=== PATIENT | female | born 1945 | race Caucasian/White ===

== ENCOUNTER → 2016-03-19 | Outpatient (CLI) | payer MEDICARE ==
[~2016-03-19] MED LIST: ASPI-586 PO; ATEN50TA PO; CLOP75TA69 PO; FENO145T20 PO; GLIP10TA13 PO; HYDR-3812 PO; HYDR-3874 PO; LISI10TA2 PO; METF1000 PO; NITR-65 PO; OMG1KC PO; TAMS0.4C98 PO
--- NOTE | 2016-03-19 15:10 | Diagnostic Imaging Report ---
PROCEDURE: CT abdomen and pelvis without contrast. TECHNIQUE: Multiple contiguous axial images were obtained through the abdomen and pelvis without the use of intravenous contrast. INDICATION: Left flank pain. FINDINGS: Lung bases are clear. There is coronary calcific atherosclerosis. Liver appears normal. Gallbladder is present. Spleen is not enlarged. Pancreas appears normal. Adrenals are normal. There is a 6 mm calculus in the lower pole calyx of the right kidney. Kidneys otherwise unremarkable. There is no hydronephrosis. Ureters are clear. Urinary bladder is unremarkable. Patient has a large ventral hernia within a pannus in the abdomen. This contains multiple loops of small bowel and colon but no evidence of obstruction. There is a second ventral hernia superior to this containing transverse colon. Neither of the hernias appear to be causing obstruction. The small hernia more superiorly has a neck of 6.5 cm and an aneurysm sac measuring 13.5 cm. The larger hernia in the pannus contains a defect approximately 12 cm in diameter and a hernia sac measuring 26 cm in diameter. There is diverticulosis without evidence of diverticulitis. IMPRESSION: Two large ventral hernias. Right nephrolithiasis. Dictated by: Dictated on workstation # [id number]
== END ==
LOC: RAD 14:09
PROVIDERS: ATTEND Urology
DX: N20.0 Calculus of kidney (principal); K43.9 Ventral hernia without obstruction or gangrene
CPT/HCPCS: 74176

== ENCOUNTER → 2016-09-29 | Outpatient (CLI) | payer MEDICARE ==
--- NOTE | 2016-09-29 17:46 | Diagnostic Imaging Report ---
INDICATION: Nephrolithiasis. KUB at 03:55 p.m. FINDINGS: There is an 8 mm stone projecting over the mid aspect of the right kidney. No calculus is seen over the kidney. Ureters are relatively clear. Bowel gas pattern is normal. IMPRESSION: Right nephrolithiasis. There has been interval removal of left double-J ureteral stent since 07/08/2015. Dictated by: Dictated on workstation # [id number]
== END ==
LOC: RAD 15:28
PROVIDERS: ATTEND Urology
DX: N20.0 Calculus of kidney (principal)
CPT/HCPCS: 74000

== ENCOUNTER → 2017-03-30 | Outpatient (CLI) | payer MEDICARE ==
[~2017-03-30] MED LIST changes: +ACHD5005 PO; -HYDR-3812 PO
--- NOTE | 2017-03-30 15:31 | Diagnostic Imaging Report ---
INDICATION: Right kidney stone. TIME OF EXAM: 03:08 p.m. COMPARISON: Comparison is made with prior exam from 09/29/2016. FINDINGS: There is a calcific density projected just medial to the right renal shadow measuring approximately 10 mm. This appears to have migrated since the prior abdominal radiograph and it may be located in the right renal pelvis or in the region of the UPJ. No other radiopaque urinary tract calculi are seen. IMPRESSION: Right abdominal calcification, likely in the region of the right renal pelvis/UPJ. Dictated by: Dictated on workstation # [id number]
== END ==
LOC: RAD 14:32
PROVIDERS: ATTEND Urology
DX: N20.0 Calculus of kidney (principal)
CPT/HCPCS: 74018

== ENCOUNTER 2017-04-07 13:00 | Outpatient (CLI) | payer MEDICARE ==
[~2017-04-07] VITALS: Ht 157.5 cm; Wt 94.3 kg
[~2017-04-07 13:00] MED LIST changes: +HYDR-3870 PO; -HYDR-3874 PO
[2017-04-07] MEDS ORDERED: ESOM20CA58 PO (13:14)
[2017-04-07] MEDS ORDERED: AMLO5TAB2 PO (13:14)
[2017-04-07] MEDS ORDERED: CARV6.252 PO (13:14)
[2017-04-07] MEDS ORDERED: RANO10003 PO (13:14)
[2017-04-07] MEDS ORDERED: DOCU-143 PO (13:14)
[2017-04-07] MEDS ORDERED: MULT1TAB69 PO (13:28)
[2017-04-07] MEDS ORDERED: CALC-823 PO (13:28)
== END 2017-04-07 13:29 ==
LOC: PREOP 13:00
PROVIDERS: ATTEND Urology
DX: Z01.818 Encounter for other preprocedural examination (principal); N20.0 Calculus of kidney

== ENCOUNTER 2017-04-13 06:01 | Day surgery (SDC) | payer MEDICARE ==
[~2017-04-13] VITALS: Ht 157.5 cm; Wt 94.3 kg
[~2017-04-13 06:01] MED LIST changes: +AMLO5TAB2 PO; +CALC-823 PO; +CARV6.252 PO; +DOCU-143 PO; +ESOM20CA58 PO; +MULT1TAB69 PO; +RANO10003 PO
--- OUTSIDE RECORDS SUMMARY | 2017-04-13 06:03 | XMS REPORT | Clinical Summary ---
Author Author [facility] Organization [facility] Address Unknown Phone Unavailable Care Team Providers Care Skidder Operator Name Role Phone PCP Unavailable Source Comments Some departments are not documenting in the electronic medical record. If you do not see the information that you expected, contact Release of Information in the Health Information Management department at [phone] for further assistance in locating additional records.[facility] Allergies Not on File Current Medications Not on file Active Problems Not on file Social History Tobacco Use Types Packs/Day Years Used Date Never Assessed Sex Assigned at Date Recorded Not on file Last Filed Vital Signs Not on file Plan of Treatment Health Maintenance Due Date Last Done Comments HEPATITIS C SCREENING 1947 PHYSICAL (COMPREHENSIVE) 1954 EXAM PERTUSSIS VACCINE 1958 TETANUS VACCINE 1964 BREAST CANCER SCREENING 1987 COLORECTAL CANCER 1997 SCREENING SHINGLES VACCINE 2007 OSTEOPOROSIS SCREENING 2012 PREVNAR/PNEUMOVAX (#1) 2012 INFLUENZA VACCINE 09/14/2016 Results Not on filefrom Last 3 Months
--- OUTSIDE RECORDS SUMMARY | 2017-04-13 06:04 | XMS REPORT | Continuity of Care Document ---
Author Author [facility] Organization [facility] Address Unknown Phone Unavailable Allergies Active Description Code Type Severity Reaction Onset Reported/Identified Relationship to Patient Clinical Status Yes atorvastatin [id number] Drug Allergy Unknown muscle pain 06/12/2015 Yes diphenhydramine [id number] Drug Allergy Unknown N/A 06/12/2015 Yes glyburide [id number] Drug Allergy Unknown RASH 06/12/2015 Yes levofloxacin [id number] Drug Allergy Unknown RASH 06/12/2015 Yes rosuvastatin [id number] Drug Allergy Unknown muscle pain 06/12/2015 Yes Sulfa (Sulfonamide Antibiotics) [id number] Drug Allergy Unknown makes face red 06/12/2015 Medications There is no data. Problems Date Dx Coded Attending Type Code Diagnosis Diagnosed By 06/12/2015 GLADYS MARTÍNEZ MD Ot N20.1 CALCULUS OF URETER 06/12/2015 GLADYS MARTÍNEZ MD Ot Z01.818 ENCOUNTER FOR OTHER PREPROCEDURAL EXAMIN 06/12/2015 GLADYS MARTÍNEZ MD Ot N20.1 CALCULUS OF URETER 06/12/2015 GLADYS MARTÍNEZ MD Ot Z01.818 ENCOUNTER FOR OTHER PREPROCEDURAL EXAMIN 06/12/2015 GLADYS MARTÍNEZ MD Ot N20.1 CALCULUS OF URETER 06/12/2015 GLADYS MARTÍNEZ MD Ot Z01.818 ENCOUNTER FOR OTHER PREPROCEDURAL EXAMIN 06/12/2015 GLADYS MARTÍNEZ MD Ot N20.1 CALCULUS OF URETER 06/12/2015 GLADYS MARTÍNEZ MD Ot Z01.818 ENCOUNTER FOR OTHER PREPROCEDURAL EXAMIN 06/16/2015 GLADYS MARTÍNEZ MD Ot N20.0 CALCULUS OF KIDNEY 06/16/2015 GLADYS MARTÍNEZ MD Ot N20.1 CALCULUS OF URETER 06/16/2015 GLADYS MARTÍNEZ MD Ot N30.90 CYSTITIS, UNSPECIFIED WITHOUT HEMATURIA 06/16/2015 GLADYS MARTÍNEZ MD Ot Z11.2 ENCOUNTER FOR SCREENING FOR OTHER BACTER 06/17/2015 GLADYS MARTÍNEZ MD Ot N20.0 CALCULUS OF KIDNEY 06/17/2015 GLADYS MARTÍNEZ MD, Ot N20.1 CALCULUS OF URETER 06/17/2015 GLADYS MARTÍNEZ MD Ot N30.90 CYSTITIS, UNSPECIFIED WITHOUT HEMATURIA 06/17/2015 GLADYS MARTÍNEZ MD Ot Z11.2 ENCOUNTER FOR SCREENING FOR OTHER BACTER 06/18/2015 GLADYS MARTÍNEZ MD Ot N20.1 CALCULUS OF URETER 06/18/2015 GLADYS MARTÍNEZ MD Ot Z01.818 ENCOUNTER FOR OTHER PREPROCEDURAL EXAMIN 06/20/2015 GLADYS MARTÍNEZ MD Ot N20.9 URINARY CALCULUS, UNSPECIFIED 06/20/2015 GLADYS MARTÍNEZ MD Ot N20.9 URINARY CALCULUS, UNSPECIFIED 06/20/2015 GLADYS MARTÍNEZ MD Ot N20.9 URINARY CALCULUS, UNSPECIFIED 06/24/2015 GLADYS MARTÍNEZ MD Ot N20.1 CALCULUS OF URETER 06/24/2015 GLADYS MARTÍNEZ MD Ot Z79.899 OTHER HALFWAY (CURRENT) DRUG THERAPY 06/25/2015 GLADYS MARTÍNEZ MD Ot N20.1 CALCULUS OF URETER 06/25/2015 GLADYS MARTÍNEZ MD Ot Z98.89 OTHER SPECIFIED POSTPROCEDURAL STATES 06/25/2015 GLADYS MARTÍNEZ MD Ot N20.1 CALCULUS OF URETER 06/25/2015 GLADYS MARTÍNEZ MD Ot Z79.899 OTHER HALFWAY (CURRENT) DRUG THERAPY 07/02/2015 GLADYS MARTÍNEZ MD Ot N20.9 URINARY CALCULUS, UNSPECIFIED 07/08/2015 GLADYS MARTÍNEZ MD Ot N20.1 CALCULUS OF URETER 07/08/2015 GLADYS MARTÍNEZ MD Ot Z09 ENCNTR FOR F/U EXAM AFT TRTMT FOR COND O 07/23/2015 GLADYS MARTÍNEZ MD, Ot N20.1 CALCULUS OF URETER 07/23/2015 GLADYS MARTÍNEZ MD Ot Z98.89 OTHER SPECIFIED POSTPROCEDURAL STATES 07/24/2015 MAURICIO CASTRO, GLADYS Mcfarland Ot N20.9 URINARY CALCULUS, UNSPECIFIED 07/31/2015 MAURICIO CASTRO, GLADYS Mcfarland Ot N20.1 CALCULUS OF URETER 07/31/2015 MAURICIO CASTRO, GLADYS Mcfarland Ot Z09 ENCNTR FOR F/U EXAM AFT TRTMT FOR COND O 08/06/2015 MAURICIO CASTRO, GLADYS Mcfarland Ot N20.1 CALCULUS OF URETER 08/06/2015 MAURICIO CASTRO, GLADYS Mcfarland Ot Z98.89 OTHER SPECIFIED POSTPROCEDURAL STATES 08/14/2015 MAURICIO CASTRO, GLADYS Mcfarland Ot N20.1 CALCULUS OF URETER 08/14/2015 MAURICIO CASTRO, GLADYS Mcfarland Ot Z09 ENCNTR FOR F/U EXAM AFT TRTMT FOR COND O 03/19/2016 GLADYS MARTÍNEZ MD Ot N20.9 URINARY CALCULUS, UNSPECIFIED 03/19/2016 MAURICIO CASTRO, GLADYS Mcfarland Ot N20.0 CALCULUS OF KIDNEY 03/19/2016 MAURICIO CASTRO, GLADYS Mcfarland Ot N20.1 CALCULUS OF URETER 03/19/2016 MAURICIO CASTRO, GLADYS Mcfarland Ot Z01.818 ENCOUNTER FOR OTHER PREPROCEDURAL EXAMIN 03/19/2016 GLADYS MARTÍNEZ MD Ot N20.1 CALCULUS OF URETER 03/19/2016 MAURICIO CASTRO, GLADYS Mcfarland Ot Z98.89 OTHER SPECIFIED POSTPROCEDURAL STATES 03/19/2016 MAURICIO CASTRO, GLADYS Mcfarland Ot N20.1 CALCULUS OF URETER 03/19/2016 MAURICIO CASTRO, GLADYS Mcfarland Ot Z09 ENCNTR FOR F/U EXAM AFT TRTMT FOR COND O 03/22/2016 GLADYS MARTÍNEZ MD Ot K43.9 VENTRAL HERNIA WITHOUT OBSTRUCTION OR GA 03/22/2016 GLADYS MARTÍNEZ MD Ot N20.0 CALCULUS OF KIDNEY 03/22/2016 MAURICIO CASTRO, GLADYS Mcfarland Ot K43.9 VENTRAL HERNIA WITHOUT OBSTRUCTION OR GA 03/22/2016 GLADYS MARTÍNEZ MD Ot N20.0 CALCULUS OF KIDNEY 04/12/2016 GLADYS MARTÍNEZ MD Ot K43.9 VENTRAL HERNIA WITHOUT OBSTRUCTION OR GA 04/12/2016 MAURICIO CASTRO, GLADYS Mcfarland Ot N20.0 CALCULUS OF KIDNEY 05/03/2016 MAURICIO CASTRO, GLADYS Mcfarland Ot K43.9 VENTRAL HERNIA WITHOUT OBSTRUCTION OR GA 05/03/2016 MAURICIO CASTRO, GLADYS Mcfarland Ot N20.0 CALCULUS OF KIDNEY 09/30/2016 MAURICIO CASTRO, GLADYS Mcfarland Ot N20.0 CALCULUS OF KIDNEY 10/20/2016 MAURICIO CASTRO, GLADYS Mcfarland Ot N20.0 CALCULUS OF KIDNEY 11/08/2016 MAURICIO CASTRO, GLADYS Mcfarland Ot N20.0 CALCULUS OF KIDNEY 03/31/2017 MAURICIO CASTRO, GLADYS Mcfarland Ot N20.0 CALCULUS OF KIDNEY 04/05/2017 MAURICIO CASTRO, GLADYS Mcfarland Ot N20.0 CALCULUS OF KIDNEY 04/07/2017 MAURICIO CASTRO, GLADYS Mcfarland Ot N20.0 CALCULUS OF KIDNEY 04/07/2017 MAURICIO CASTRO, GLADYS Mcfarland Ot Z01.818 ENCOUNTER FOR OTHER PREPROCEDURAL EXAMIN Procedures There is no data. Results There is no data. Encounters ACCT No. Visit Date/Time Discharge Status Pt. Type Provider Facility Loc./Unit Complaint [id number] 04/07/2017 13:00:00 04/07/2017 13:29:00 DIS Outpatient GLADYS MARTÍNEZ MD [facility] PREOP RIGHT RENAL STONE [id number] 03/30/2017 14:32:00 03/30/2017 23:59:59 CLS Outpatient GLADYS MARTÍNEZ MD [facility] RAD RT RENAL STONES [id number] 09/29/2016 15:28:00 09/29/2016 23:59:59 CLS Outpatient GLADYS MARTÍNEZ MD [facility] RAD RENAL STONE [id number] 03/19/2016 14:09:00 03/19/2016 23:59:59 CLS Outpatient GLADYS MARTÍNEZ MD [facility] RAD GROSS HEMATURIA [id number] 07/08/2015 14:15:00 07/08/2015 23:59:59 CLS Outpatient GLADYS MARTÍNEZ MD [facility] RAD LT URETERAL STONE [id number] 06/24/2015 09:13:00 06/24/2015 13:55:00 DIS Outpatient GLADYS MARTÍNEZ MD [facility] LEFT STONE [id number] 06/23/2015 14:35:00 06/23/2015 23:59:59 CLS Outpatient GLADYS MARTÍNEZ MD [facility] RAD STONE [id number] 06/23/2015 05:39:00 06/23/2015 23:59:59 CLS Outpatient GLADYS MARTÍNEZ MD [facility] PREOP LEFT STONE [id number] 06/16/2015 06:10:00 06/16/2015 11:20:00 DIS Outpatient GLADYS MARTÍNEZ MD [facility] LEFT STONE [id number] 06/12/2015 13:06:00 06/12/2015 16:00:00 DIS Outpatient GLADYS MARTÍNEZ MD [facility] PREOP LEFT STONE [id number] 06/11/2015 12:25:00 06/11/2015 23:59:59 CLS Outpatient GLADYS MARTÍNEZ MD [facility] RAD STONES [id number] 2017 08:00:00 PEN Preadmit GLDAYS MARTÍNEZ MD [facility] RIGHT RENAL STONE
[2017-04-13 06:30] VITALS: BP 145/70
[2017-04-13] MEDS ORDERED: LACTATED RINGERS 1,000 ML IV PRN ×2 (06:40→06:50)
[2017-04-13] MEDS ORDERED: cefTRIAXone INJECTION 1,000 MG in NS (IVPB) 50 ML IV ONE (06:45)
--- NOTE | 2017-04-13 06:45 | Diagnostic Imaging Report ---
INDICATION: Renal calculus. AP views of the pelvis are obtained with comparison made study of 03/30/2017. FINDINGS: Approximately 0.9 cm calcification now projects over the lower pole of the right kidney. Additional tiny calcifications are seen centrally in both kidneys. No definite calculus is seen along the course of the ureters. There is moderate amount of stool throughout the colon. There is protrusion or possible herniation of bowel in the right lower quadrant. IMPRESSION: Approximately 1 cm calculus which projects over the lower pole of the right kidney with smaller calculi seen centrally in the kidneys bilaterally. There does appear to be prominent right lower quadrant bowel protrusion or herniation. Dictated by: Dictated on workstation # [id number]
[2017-04-13] MEDS ORDERED: NS (IVPB) 50 ML ONE (06:47)
[2017-04-13] MEDS ORDERED: cefTRIAXone 1 GM (ROCEPHIN) VIAL ONE (06:47)
[2017-04-13] MEDS ORDERED: FAMOTIDINE 20MG/2ML IV (PEPCID) ONE (06:48)
[2017-04-13] MEDS ORDERED: ONDANSETRON 4 MG/2 ML (SDV) Z0FRAN ONE (06:59)
[2017-04-13] MEDS ORDERED: DEXAMETHASONE 10 MG/ML (DECADRON) 1 ML VIAL ONE (06:59)
[2017-04-13] MEDS ORDERED: LIDOCAINE PF 2% 5 ML (XYLOCAINE) VIAL ONE (06:59)
[2017-04-13] MEDS ORDERED: proPOfol 200 MG/20 ML (DIPRIVAN) VIAL IV ONE (06:59)
[2017-04-13] MEDS ORDERED: FAMOTIDINE 20MG/2ML IV (PEPCID) IV ONE (07:00)
[2017-04-13] MEDS ORDERED: fentaNYL INJECTION 100 MCG/2 ML AMP ONE (07:00)
[2017-04-13] MEDS ORDERED: MIDAZOLAM 2 MG/2 ML (VERSED) VIAL ONE (07:15)
--- NOTE | 2017-04-13 07:18 | Progress Note-Post Operative ---
Post-Operative Progess Note Surgeon (s)/Microsoft Developer (s) Surgeon GLADYS MARTÍNEZ MD Microsoft Developer: N/A Pre-Operative Diagnosis RT RENAL STONE Post-Operative Diagnosis SAME Procedure & Operative Findings Date of Procedure 04/13/17 Procedure Performed/Findings RT ESWL Anesthesia Type GENERAL Estimated Blood Loss Estimated blood loss (mL): N/A Specimens/Packing Specimens Removed N/A Packing: N/A GLADYS MARTÍNEZ MD Apr 13, 2017 7:18 am
--- NOTE | 2017-04-13 07:18 | Progress Note-Pre Operative ---
Pre-Operative Progress Note H&P Reviewed The H&P was reviewed, patient examined and no changes noted. Date Seen by Provider: Apr 13, 2017 Time Seen by Provider: 07:17 Date H&P Reviewed: Apr 13, 2017 Time H&P Reviewed: 07:17 Pre-Operative Diagnosis: RT RENAL STONE GLADYS MARTÍNEZ MD Apr 13, 2017 7:18 am
--- NOTE | 2017-04-13 07:21 | Discharge Inst-Urology ---
Discharge Inst-Urology Discharge Medications New, Converted, or Re-newed RX: RX on Chart Patient Instructions/Follow Up Plan Please make appointment to been seen in office Tuesday 04/25, KUB prior to it KUB on way home Post ESWL Instructions Increase oral fluids for 48 hours and then as needed. Diet and Activity as tolerated. If questions or concerns contact your physician Or seek help at emergency department. GLADYS MARTÍNEZ MD Apr 13, 2017 7:21 am
[2017-04-13] MEDS ORDERED: FUROSEMIDE 40 MG/4 ML INJ (LASIX) ONE (07:51)
[2017-04-13] MEDS ORDERED: KETOROLAC 30 MG/ML VIAL ONE (07:51)
[2017-04-13] MEDS ORDERED: SEVOFLURANE (ULTANE) 15 ML INHAL SOLN ONE (08:00)
[2017-04-13] MEDS ORDERED: ONDANSETRON 4 MG/2 ML (SDV) Z0FRAN IVP PRN (08:15)
[2017-04-13] MEDS ORDERED: fentaNYL INJECTION 100 MCG/2 ML AMP IVP PRN (08:15)
--- NOTE | 2017-04-13 08:38 | OPERATIVE REPORT ---
DATE OF SERVICE: 04/13/2017 PREOPERATIVE DIAGNOSIS: Right renal stone. POSTOPERATIVE DIAGNOSIS: Right renal stone. OPERATION PERFORMED: Right ESWL. SURGEON: Marlon Martínez MD ANESTHESIA: General. COMPLICATIONS: None. PROCEDURE: Under satisfactory general anesthesia, the patient in supine position on the ESWL table. The right renal stone was localized. Shocks were delivered at KV of five. A total of 3000 shocks seemed to have fragmented the stone, which was a good size stone pretty well. The patient received 40 mg of Lasix and 30 mg of Toradol IV at the end of the procedure. She tolerated the procedure and anesthesia well and was sent to recovery room in stable condition. PLAN: We will see the results and we will see her back at the office in a couple of weeks and she needs another one. We will go ahead and do it next time the machine is here in 2 weeks. Job ID: [id number] DocumentID: [id number] Dictated Date: 04/13/2017 07:59:35 Commercial Interior Designer Date: 04/13/2017 08:38:00 Dictated By: MARLON MARTÍNEZ MD
[2017-04-13 09:00] VITALS: BP 139/73
[2017-04-13] MEDS ORDERED: NITR-65 PO (09:12)
[2017-04-13] MEDS ORDERED: TAMS0.4C98 PO (09:12)
[2017-04-13] MEDS ORDERED: HYDR-3870 PO (09:12)
[2017-04-13 09:30] VITALS: BP 136/77
[2017-04-13 10:00] VITALS: BP 139/63
--- NOTE | 2017-04-13 10:39 | Anesthesia-General Post-Op ---
General Patient Condition Mental Status/LOC: Same as Preop Cardiovascular: Satisfactory Nausea/Vomiting: Absent Respiratory: Satisfactory Pain: Controlled Complications: Absent Post Op Complications Complications None Follow Up Care/Instructions Patient Instructions None needed. Anesthesia/Patient Condition Patient Condition Patient is doing well, no complaints, stable vital signs, no apparent adverse anesthesia problems. No complications reported per nursing. BINTA MONTERROSO CRNA Apr 13, 2017 10:39
--- NOTE | 2017-04-13 11:33 | Diagnostic Imaging Report ---
INDICATION: Right renal stone, post lithotripsy. TIME OF EXAM: 10:37 a.m. COMPARISON: Correlation is made with prior study earlier the same morning. FINDINGS: Previously noted right renal calculus appears to be more medially located on this current exam, perhaps in the region of the renal pelvis. There appears to be minimal fragmentation of the stone. There are additional tiny calcific densities in the lower pole of the right kidney as well consistent with calculi. No left-sided urinary tract calculi are seen. No definite ureteral calculi are identified. The bowel gas pattern is unremarkable. IMPRESSION: Dominant right renal calculus is more medially located on this current exam, perhaps in the right renal pelvis. Minimal fragmentation is noted from recent lithotripsy. Dictated by: Dictated on workstation # [id number]
== END 2017-04-13 10:21 | disposition home or self-care (01) ==
LOC: SDC 06:01
PROVIDERS: ATTEND Urology
DX: N20.0 Calculus of kidney (principal); Z11.2 Encounter for screening for other bacterial diseases; I25.10 Atherosclerotic heart disease of native coronary artery without angina pectoris; I12.9 Hypertensive chronic kidney disease with stage 1 through stage 4 chronic kidney disease, or unspecified chronic kidney disease; N18.3 Chronic kidney disease, stage 3 (moderate); E11.9 Type 2 diabetes mellitus without complications; K21.9 Gastro-esophageal reflux disease without esophagitis; F41.9 Anxiety disorder, unspecified; Z95.1 Presence of aortocoronary bypass graft; Z95.5 Presence of coronary angioplasty implant and graft
CPT/HCPCS: 74018; 82962; 87081

== ENCOUNTER 2017-04-20 05:29 | Outpatient (CLI) | payer MEDICARE ==
[~2017-04-20] VITALS: Ht 157.5 cm; Wt 94.3 kg
[~2017-04-20 05:29] MED LIST changes: -HYDR-3812 PO; -TAMS0.4C2 PO
[2017-04-20] MEDS ORDERED: TAMS0.4C2 PO (15:28)
[2017-04-20] MEDS ORDERED: HYDR-3812 PO (15:28)
== END 2017-04-20 15:35 ==
LOC: PREOP 05:29
PROVIDERS: ATTEND Urology
DX: Z01.818 Encounter for other preprocedural examination (principal); N20.0 Calculus of kidney

== ENCOUNTER → 2017-04-20 | Outpatient (CLI) | payer MEDICARE ==
[~2017-04-20] MED LIST changes: +HYDR-3812 PO; +TAMS0.4C2 PO
--- NOTE | 2017-04-20 14:00 | Diagnostic Imaging Report ---
INDICATION: Right renal stone status post lithotripsy. TIME OF EXAM: 2:01 PM COMPARISON: Correlation is made with prior radiograph from 04/13/2017. FINDINGS: The previously noted calculus projected medial to the right renal shadow does measure slightly smaller at 8 mm compared with 10 mm. This may be owing to fragmentation from lithotripsy. No definite calculi along the course of the right ureter are seen. There are punctate calcific densities overlying the lower pole of the right kidney, stable. Left-sided urinary tracts are unremarkable. IMPRESSION: Right-sided renal calculus measuring slightly smaller when compared to examination from 04/13/2017. Dictated by: Dictated on workstation # [id number]
== END ==
LOC: RAD 13:34
PROVIDERS: ATTEND Urology
DX: N20.0 Calculus of kidney (principal); Z98.890 Other specified postprocedural states
CPT/HCPCS: 74018

== ENCOUNTER 2017-04-26 06:30 | Day surgery (SDC) | payer MEDICARE ==
[~2017-04-26] VITALS: Ht 157.5 cm; Wt 94.3 kg
[~2017-04-26 06:30] MED LIST changes: +HYDR-3812 PO; +TAMS0.4C2 PO
--- OUTSIDE RECORDS SUMMARY | 2017-04-26 06:32 | XMS REPORT | Clinical Summary ---
Author Author [facility] Organization [facility] Address Unknown Phone Unavailable Care Team Providers Care Landing Man Name Role Phone PCP Unavailable Source Comments Some departments are not documenting in the electronic medical record. If you do not see the information that you expected, contact Release of Information in the Health Information Management department at [phone] for further assistance in locating additional records.[facility] Allergies Not on File Current Medications Not [...] SCREENING 2012 PREVNAR/PNEUMOVAX (#1) 2012 INFLUENZA VACCINE 11/14/2017 Results Not on filefrom Last 3 Months
--- OUTSIDE RECORDS SUMMARY | 2017-04-26 06:32 | XMS REPORT | Continuity of Care Document ---
Author Author [facility] Organization [facility] Address Unknown Phone Unavailable Allergies Active Description Code Type Severity Reaction Onset Reported/Identified Relationship to Patient Clinical Status Yes atorvastatin [id number] Drug Allergy Unknown muscle pain 06/12/2015 Yes diphenhydramine [id number] Drug Allergy Unknown N/A 06/12/2015 Yes glyburide [id number] Drug Allergy Unknown RASH 06/12/2015 Yes levofloxacin [id number] Drug Allergy Unknown RASH 06/12/2015 Yes rosuvastatin [id number] Drug Allergy Unknown muscle pain 06/12/2015 Yes Sulfa (Sulfonamide Antibiotics) [id number] Drug Allergy Unknown makes face red 06/12/2015 [...] ENCOUNTER FOR OTHER PREPROCEDURAL EXAMIN 06/16/2015 GLADYS MARTÍNZE MD Ot N20.0 CALCULUS OF KIDNEY 06/16/2015 [...] Z01.818 ENCOUNTER FOR OTHER PREPROCEDURAL EXAMIN 06/20/2015 GLDAYS MARTÍNEZ MD Ot N20.9 URINARY CALCULUS, UNSPECIFIED 06/20/2015 GLADYS MARTÍNEZ MD Ot N20.9 URINARY CALCULUS, UNSPECIFIED 06/20/2015 GLADYS MARTÍNEZ MD Ot N20.9 URINARY CALCULUS, UNSPECIFIED 06/24/2015 GLADYS MARTÍNEZ MD Ot N20.1 CALCULUS OF URETER 06/24/2015 GLADYS MARTÍNEZ MD Ot Z79.899 OTHER FDC (CURRENT) DRUG THERAPY 06/25/2015 GLADYS MARTÍNEZ MD Ot N20.1 CALCULUS OF URETER 06/25/2015 GLADYS MARTÍNEZ MD Ot Z98.89 OTHER SPECIFIED POSTPROCEDURAL STATES 06/25/2015 GLADYS MARTÍNEZ MD Ot N20.1 CALCULUS OF URETER 06/25/2015 GLADYS MARTÍNEZ MD Ot Z79.899 OTHER FDC (CURRENT) DRUG THERAPY 07/02/2015 GLADYS MARTÍNEZ MD [...] Mcfarland Ot N20.0 CALCULUS OF KIDNEY 04/07/2017 GLADYS MARTÍNEZ MD Ot Z01.818 ENCOUNTER FOR OTHER PREPROCEDURAL EXAMIN 2017 GLADYS MARTÍNEZ MD Ot E11.9 TYPE 2 DIABETES MELLITUS WITHOUT COMPLIC 2017 GLADYS MARTÍNEZ MD Ot F41.9 ANXIETY DISORDER, UNSPECIFIED 2017 GLADYS MARTÍNEZ MD Ot I12.9 HYPERTENSIVE CHRONIC KIDNEY DISEASE W ST 2017 GLADYS MARTÍNEZ MD Ot I25.10 ATHSCL HEART DISEASE OF [place] CORONARY 2017 GLADYS MARTÍNEZ MD Ot K21.9 GASTRO-ESOPHAGEAL REFLUX DISEASE WITHOUT 2017 GLADYS MARTÍNEZ MD Ot N18.3 CHRONIC KIDNEY DISEASE, STAGE 3 (MODERAT 2017 GLADYS MARTÍNEZ MD Ot N20.0 CALCULUS OF KIDNEY 2017 GLADYS MARTÍNEZ MD Ot Z11.2 ENCOUNTER FOR SCREENING FOR OTHER BACTER 2017 GLADYS MARTÍNEZ MD Ot Z95.1 PRESENCE OF AORTOCORONARY BYPASS GRAFT 2017 GLADYS MARTÍNEZ MD Ot Z95.5 PRESENCE OF CORONARY ANGIOPLASTY IMPLANT 04/14/2017 GLADYS MARTÍNEZ MD Ot E11.9 TYPE 2 DIABETES MELLITUS WITHOUT COMPLIC 04/14/2017 GLADYS MARTÍNEZ MD, Ot F41.9 ANXIETY DISORDER, UNSPECIFIED 04/14/2017 GLADYS MARTÍNEZ MD, Ot I12.9 HYPERTENSIVE CHRONIC KIDNEY DISEASE W ST 04/14/2017 GLADYS MARTÍNEZ MD, Ot I25.10 ATHSCL HEART DISEASE OF [place] CORONARY 04/14/2017 GLADYS MARTÍNEZ MD, Ot K21.9 GASTRO-ESOPHAGEAL REFLUX DISEASE WITHOUT 04/14/2017 GLADYS MARTÍNEZ MD, Ot N18.3 CHRONIC KIDNEY DISEASE, STAGE 3 (MODERAT 04/14/2017 GLADYS MARTÍNEZ MD, Ot N20.0 CALCULUS OF KIDNEY 04/14/2017 GLADYS MARTÍNEZ MD, Ot Z11.2 ENCOUNTER FOR SCREENING FOR OTHER BACTER 04/14/2017 GLADYS MARTÍNEZ MD, Ot Z95.1 PRESENCE OF AORTOCORONARY BYPASS GRAFT 04/14/2017 GLADYS MARTÍNEZ MD, Ot Z95.5 PRESENCE OF CORONARY ANGIOPLASTY IMPLANT 04/19/2017 GLADYS MARTÍNEZ MD Ot N20.0 CALCULUS OF KIDNEY 04/21/2017 GLADYS MARTÍNEZ MD, Ot N20.0 CALCULUS OF KIDNEY 04/21/2017 GLADYS MARTÍNEZ MD, Ot Z98.890 OTHER SPECIFIED POSTPROCEDURAL STATES 04/21/2017 GLADYS MARTÍNEZ MD, Ot N20.0 CALCULUS OF KIDNEY 04/21/2017 GLADYS MARTÍNEZ MD, Ot Z01.818 ENCOUNTER FOR OTHER PREPROCEDURAL EXAMIN Procedures There is no data. Results Test Result Range Methicillin resistant Staphylococcus aureus (MRSA) screening culture - 06:15 Methicillin resistant Staphylococcus aureus (MRSA) screening culture NEG NRG Capillary blood glucose measurement by glucometer (mass/volume) - 04/13/17 06: 35 Capillary blood glucose measurement by glucometer (mass/volume) 126 mg/dL 70-110 Encounters ACCT No. Visit Date/Time Discharge Status Pt. Type Provider Facility Loc./Unit Complaint [id number] 04/20/2017 13:34:00 04/20/2017 23:59:59 CLS Outpatient GLADYS MARTÍNEZ MD [facility] RAD RENAL STONES [id number] 04/20/2017 05:29:00 04/20/2017 15:35:00 DIS Outpatient GLADYS MARTÍNEZ MD [facility] PREOP RIGHT ESWL [id number] 2017 06:01:00 2017 10:21:00 DIS Outpatient GLADYS MARTÍNEZ MD [facility] SDC RIGHT RENAL STONE [id number] 04/07/2017 13:00:00 04/07/2017 13:29:00 DIS Outpatient GLADYS MARTÍNEZ MD [facility] PREOP RIGHT RENAL STONE [id number] 03/30/2017 14:32:00 03/30/2017 23:59:59 CLS Outpatient GLADYS MARTÍNEZ MD [facility] RAD RT RENAL STONES [id number] 09/29/2016 15:28:00 09/29/2016 23:59:59 CLS Outpatient GLADYS MARTÍNEZ MD [facility] RAD RENAL STONE [id number] 03/19/2016 14:09:00 03/19/2016 23:59:59 CLS Outpatient GLADYS MARTÍNEZ MD [facility] RAD GROSS HEMATURIA [id number] 07/08/2015 14:15:00 07/08/2015 23:59:59 CLS Outpatient GLADYS MARTÍNEZ MD [facility] RAD LT URETERAL STONE [id number] 06/24/2015 09:13:00 06/24/2015 13:55:00 DIS Outpatient GLADYS MARTÍNEZ MD [facility] SDC LEFT STONE [id number] 06/23/2015 14:35:00 06/23/2015 23:59:59 CLS Outpatient GLADYS MARTÍNEZ MD [facility] RAD STONE [id number] 06/23/2015 05:39:00 06/23/2015 23:59:59 CLS Outpatient GLADYS MARTÍNEZ MD [facility] PREOP LEFT STONE [id number] 06/16/2015 06:10:00 06/16/2015 11:20:00 DIS Outpatient GLADYS MARTÍNEZ MD [facility] LEFT STONE [id number] 06/12/2015 13:06:00 06/12/2015 16:00:00 DIS Outpatient GLADYS MARTÍNEZ MD [facility] PREOP LEFT STONE [id number] 06/11/2015 12:25:00 06/11/2015 23:59:59 CLS Outpatient GLADYS MARTÍNEZ MD [facility] RAD STONES [id number] 04/26/2017 08:00:00 PEN Preadmit GLADYS MARTÍNEZ MD [facility] RIGHT URETERAL STONE
--- NOTE | 2017-04-26 07:16 | Progress Note-Pre Operative ---
Pre-Operative Progress Note H&P Reviewed The H&P was reviewed, patient examined and no changes noted. Date Seen by Provider: Apr 26, 2017 Time Seen by Provider: 07:16 Date H&P Reviewed: Apr 26, 2017 Time H&P Reviewed: 07:16 Pre-Operative Diagnosis: RT RENAL STONE GLADYS MARTÍNEZ MD Apr 26, 2017 7:16 am
--- NOTE | 2017-04-26 07:17 | Progress Note-Post Operative ---
Post-Operative Progess Note Surgeon (s)/Compensation Director (s) Surgeon GLADYS MARTÍNEZ MD Compensation Director: N/A Pre-Operative Diagnosis RT RENAL STONE Post-Operative Diagnosis SAME Procedure & Operative Findings Date of Procedure 04/26/17 Procedure Performed/Findings RT ESWL Anesthesia Type GENERAL Estimated Blood Loss Estimated blood loss (mL): N/A Specimens/Packing Specimens Removed N/A Packing: N/A GLADYS MARTÍNEZ MD Apr 26, 2017 7:17 am
--- NOTE | 2017-04-26 07:19 | Discharge Inst-Urology ---
Discharge Inst-Urology Discharge Medications New, Converted, or Re-newed RX: RX on Chart Patient Instructions/Follow Up Plan Please make appointment to been seen in office 05/09, [place] prior to it [address] on [address] home Post ESWL instructions Increase oral fluids for 48 hours and then as needed. Diet and Activity as tolerated. If questions or concerns contact your physician Or seek help at emergency department. GLADYS MARTÍNEZ MD Apr 26, 2017 7:18 am
--- NOTE | 2017-04-26 07:23 | Diagnostic Imaging Report ---
Indication: Urinary calculi. Comparison: 04/20/2017. Findings: The 9 mm right proximal ureteral stone is in similar position. No additional urinary tract calculi are seen with certainty by radiography. Nonobstructive bowel gas pattern. Mild degenerative changes in the hips and SI joints. Impression: Stable position of proximal right ureteral 9 mm stone. Dictated by: Dictated on workstation # [id number]
[2017-04-26] MEDS ORDERED: CATHETER FLUSH 10 ML SYR IV PRN (07:30)
[2017-04-26] MEDS ORDERED: cefTRIAXone 1 GM/NS 100 ML IVPB IV ONE ×2 (07:30)
[2017-04-26] MEDS ORDERED: fentaNYL INJECTION 100 MCG/2 ML AMP ONE (07:45)
[2017-04-26] MEDS ORDERED: MIDAZOLAM 2 MG/2 ML (VERSED) VIAL ONE (07:48)
[2017-04-26] MEDS: LACTATED RINGERS 1,000 ML IV PRN ×2 (07:55→08:38)
[2017-04-26] MEDS ORDERED: cefTRIAXone INJECTION 1,000 MG in NS (IVPB) 100 ML IV ONE (08:00)
[2017-04-26 08:18] VITALS: BP 139/70
[2017-04-26] MEDS ORDERED: SEVOFLURANE (ULTANE) 15 ML INHAL SOLN ONE (08:58)
[2017-04-26] MEDS ORDERED: KETOROLAC 30 MG/ML VIAL ONE (08:58)
[2017-04-26] MEDS ORDERED: proPOfol 200 MG/20 ML (DIPRIVAN) VIAL IV ONE (08:58)
[2017-04-26] MEDS ORDERED: FUROSEMIDE 40 MG/4 ML INJ (LASIX) ONE (08:58)
[2017-04-26] MEDS ORDERED: LIDOCAINE PF 2% 5 ML (XYLOCAINE) VIAL ONE (08:58)
[2017-04-26] MEDS ORDERED: fentaNYL INJECTION 100 MCG/2 ML AMP IVP PRN (09:00)
[2017-04-26] MEDS ORDERED: ONDANSETRON 4 MG/2 ML (SDV) Z0FRAN IVP PRN (09:00)
[2017-04-26 09:30] VITALS: BP 146/65
[2017-04-26] MEDS ORDERED: TAMS0.4C98 PO (09:59)
[2017-04-26] MEDS ORDERED: NITR-65 PO (09:59)
[2017-04-26] MEDS ORDERED: HYDR-3875 PO (09:59)
[2017-04-26 10:00] VITALS: BP 136/65
--- NOTE | 2017-04-26 10:11 | OPERATIVE REPORT ---
DATE OF SERVICE: 04/26/2017 PREOPERATIVE DIAGNOSIS: Right renal proximal ureteral stone. POSTOPERATIVE DIAGNOSIS: Right renal proximal ureteral stone. OPERATION PERFORMED: Right ESWL. SURGEON: Marlon Martínez MD. ANESTHESIA: General. COMPLICATIONS: None. PROCEDURE: Under satisfactory general anesthesia, the patient in the supine position on the ESWL table, the right renal -- proximal ureter stone was localized. Shocks were delivered to the L5. A total of 3000 shocks needed to have fragmented the stone pretty nicely, which has decreased significant in size burden. The patient received 40 mg of Lasix and 30 mg of Toradol IV at the end of the procedure. She tolerated the procedure and anesthesia well and was sent to recovery room in stable condition. 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
[2017-04-26 10:30] VITALS: BP 133/67
[2017-04-26 10:45] VITALS: BP 133/67
--- NOTE | 2017-04-26 13:27 | Anesthesia-General Post-Op ---
General Patient Condition Mental Status/LOC: Same as Preop Cardiovascular: Satisfactory Nausea/Vomiting: Absent Respiratory: Satisfactory Pain: Controlled Complications: Absent Post Op Complications Complications None Follow Up Care/Instructions Patient Instructions None needed. Anesthesia/Patient Condition Patient Condition Patient was seen prior to discharge and was doing well, no complaints, stable vital signs, no apparent adverse anesthesia problems. DANIEL HEWITT DO Apr 26, 2017 13:27
--- NOTE | 2017-04-26 18:51 | Diagnostic Imaging Report ---
EXAMINATION: Abdomen at 10:36 a.m. INDICATION: Post ESWL. FINDINGS: The exam performed earlier today noted a 9.4 mm calcification overlying the proximal right ureter. Reportedly, in the interval since the prior exam, the patient has undergone ESWL. The previously noted calcification has been fragmented, and a portion of the calcification now overlies the right renal pelvis. This calcification also measures approximately 9 mm but does seem smaller than noted on the prior study. The small suspected phlebolith low in the pelvis on the right seen previously is not as well visualized. The small surgical coil in this area is again evident and no different. The remainder of the abdomen and pelvis is stable when compared to the prior exam. IMPRESSION: The calcification overlying the right ureter seen previously has been fragmented, and the main portion of the calcification now overlies the right renal pelvis. A followup exam would be recommended for continued evaluation. Dictated by: Dictated on workstation # [id number]
== END 2017-04-26 10:45 | disposition home or self-care (01) ==
LOC: SDC 06:30 → SURG 09:50 → SDC 10:45
PROVIDERS: ATTEND Urology
DX: N20.2 Calculus of kidney with calculus of ureter (principal); E11.22 Type 2 diabetes mellitus with diabetic chronic kidney disease; I12.9 Hypertensive chronic kidney disease with stage 1 through stage 4 chronic kidney disease, or unspecified chronic kidney disease; N18.3 Chronic kidney disease, stage 3 (moderate); I25.10 Atherosclerotic heart disease of native coronary artery without angina pectoris; F41.9 Anxiety disorder, unspecified; K21.9 Gastro-esophageal reflux disease without esophagitis; Z79.84 Long term (current) use of oral hypoglycemic drugs; Z79.899 Other long term (current) drug therapy; Z95.1 Presence of aortocoronary bypass graft
CPT/HCPCS: 74018; 82962; 87081

== ENCOUNTER → 2017-05-09 | Outpatient (CLI) | payer MEDICARE ==
[~2017-05-09] MED LIST changes: +HYDR-3875 PO
--- NOTE | 2017-05-09 17:53 | Diagnostic Imaging Report ---
INDICATION: Right renal stone, status post lithotripsy. TIME OF EXAM: 2:53 p.m. COMPARISON: Correlation is made with prior study from 04/26/2017. FINDINGS: Multiple calcific densities overlie the right renal shadow consistent with renal calculi. There may be some fragmentation of the more dominant calculus in the mid right kidney medially located. No definite calculi along the course of the ureters are seen. The bowel gas pattern is unremarkable. IMPRESSION: Right renal calculi, status post lithotripsy. Dictated by: Dictated on workstation # [id number]
== END ==
LOC: RAD 14:26
PROVIDERS: ATTEND Urology
DX: N20.0 Calculus of kidney (principal); Z98.890 Other specified postprocedural states
CPT/HCPCS: 74018

== ENCOUNTER → 2018-08-01 | Outpatient (CLI) | payer MEDICARE ==
[~2018-08-01] MED LIST changes: -AMLO5TAB2 PO; +AMLO5TAB9 PO; -FENO145T20 PO; +FENO145T37 PO; +METF-399 PO; -METF1000 PO
--- NOTE | 2018-08-01 13:31 | Diagnostic Imaging Report ---
PROCEDURE: US Renal Bilateral. TECHNIQUE: Multiple real-time grayscale images were obtained over the kidneys in various projections bilaterally. INDICATION: Kidney stones and urinary tract infections. FINDINGS: Right kidney measures 10.6 x 4.1 x 6.3 cm, and the left kidney measures 10.6 x 4.9 x 4.6 cm. Cortical thickness and echogenicity appear normal. No calculi are seen. No definite hydronephrosis is identified, although the right renal pelvis is slightly dilated. IMPRESSION: Essentially unremarkable renal ultrasound apart from slight dilatation of the right renal pelvis. No calculi are detected. Dictated by: Dictated on workstation # [id number]
--- NOTE | 2018-08-01 13:41 | Diagnostic Imaging Report ---
EXAMINATION: Supine abdomen at 1:16 p.m. INDICATION: Nephrolithiasis. FINDINGS: The prior exam of 08/09/2017 noted several calcifications overlying the right renal contour. On this study, those calcifications do appear to have changed. Specifically, the calcific densities overlying the superior pole of the right kidney do seem somewhat larger and more numerous than on the prior exam. Conversely, there is only a single calcification now overlying the inferior pole of the right kidney. There is still no evidence for nephrolithiasis on the left. The calcifications low in the pelvis seen previously are stable. There is gas in both the large and small bowel in a nonspecific fashion. There is no evidence for a bowel obstruction. There does appear to be a fair amount of fecal material throughout the colon. There is no mass, organomegaly, or pathological calcification evident. The osseous structures are intact. Surgical coils are again seen overlying each side of the pelvis. IMPRESSION: 1. The calcific densities overlying the superior pole of the right kidney seen previously have increased in number and size. Conversely, there is now only a single calcification overlying the inferior pole of the right kidney. 2. The overall appearance of the abdomen has not changed significantly otherwise. There is no acute abnormality noted. Dictated by: Dictated on workstation # [id number]
== END ==
LOC: RAD FS 12:52
PROVIDERS: ATTEND Urology
DX: N20.0 Calculus of kidney (principal); N39.0 Urinary tract infection, site not specified
CPT/HCPCS: 74018; 76770

== ENCOUNTER 2019-08-12 16:30 | Inpatient (IN) | payer MEDICARE ==
[~2019-08-12] VITALS: Ht 157.4 cm; Wt 91.0 kg
[~2019-08-12 16:30] MED LIST changes: +FENO145T26 PO; -FENO145T37 PO; -HYDR-3812 PO; +MULT-567 PO; -MULT1TAB69 PO; -TAMS0.4C98 PO; +TMSL.4C PO
--- NOTE | 2019-08-12 16:32 | ED General ---
General Stated Complaint: ABD PAIN;VOMITING Source of Information: Patient History of Present Illness Date Seen by Provider: Aug 12, 2019 Time Seen by Provider: 16:31 Initial Comments Patient is a 74-year-old female who comes to the emergency department today complaining of abdominal pain. She has been having diffuse abdominal pain both in the right upper and left side of her abdomen over the last week. Pain is been intermittent. She also has complained of some dysuria and urgency of urine and frequency. She saw her primary care physician I couple days earlier and was started on amoxicillin for presumed UTI. She comes to the ER today because this medication did not help her feel improved. She has had some intermittent nausea and vomiting. She estimates she has vomited twice today prior to arrival and currently does complain of some nausea. No chest pain or shortness of breath. Th e patient does have known history of kidney stones but she feels this pain is different compared to prior kidney stone related symptoms. Allergies and Home Medications Allergies Coded Allergies: Sulfa (Sulfonamide Antibiotics) (Verified Allergy, Unknown, makes face red, 06/12/15) atorvastatin (Verified Allergy, Unknown, muscle pain, 06/12/15) diphenhydramine (Verified Allergy, Unknown, 06/12/15) glyburide (Verified Allergy, Unknown, RASH, 06/12/15) levofloxacin (Verified Allergy, Unknown, RASH, 06/12/15) rosuvastatin (Verified Allergy, Unknown, muscle pain, 06/12/15) Home Medications Amlodipine Besylate 5 Mg Tablet, 5 MG PO DAILY, (Reported) Calcium Carbonate 500 Mg Tablet, 500 MG PO BID, (Reported) Carvedilol 6.25 Mg Tablet, 6.25 MG PO BID, (Reported) Docusate Sodium 100 Mg Capsule, 100 MG PO BID, (Reported) Esomeprazole Magnesium 20 Mg Capsule.dr, 20 MG PO BID, (Reported) Fenofibrate Nanocrystallized 145 Mg Tablet, 145 MG PO DAILY, (Reported) Glipizide 10 Mg Tablet, 5 MG PO HS, (Reported) TAKE 1/2 OF 10MG TAB Hydrocodone Bit/Acetaminophen 1 Each Tablet, 1-2 TAB PO Q4H PRN for PAIN-MILD TO MODERATE, (Reported) Hydrocodone/Acetaminophen 1 Each Tablet, 1-2 TAB PO Q4H PRN for PAIN Prescribed by: LISA ANDREA on 04/26/17958 Lisinopril 10 Mg Tablet, 10 MG PO DAILY, (Reported) Metformin HCl 1,000 Mg Tablet, 1,000 MG PO BID, (Reported) Multivitamin 1 Each Tablet, 1 EACH PO DAILY, (Reported) Nitrofurantoin Monohyd/M-Cryst 100 Mg Capsule, 1 CAP PO BID Prescribed by: LISA ANDREA on 04/26/17958 [place] 3 Polyunsat Fatty Acids 1,000 Mg Cap, 1,000 MG PO DAILY, (Reported) Ranolazine 1,000 Mg Tab.er.12h, 1,000 MG PO BID, (Reported) Tamsulosin HCl 0.4 Mg Cap.er.24h, 0.4 MG PO DAILY, (Reported) Tamsulosin HCl 0.4 Mg Cap, 1 CAP PO DAILY Prescribed by: LISA ANDREA on 04/26/17958 Patient Home Medication List Home Medication List Reviewed: Yes Review of Systems Review of Systems Constitutional: no symptoms reported EENTM: no symptoms reported Respiratory: no symptoms reported Cardiovascular: no symptoms reported Gastrointestinal: see HPI Genitourinary: see HPI Musculoskeletal: no symptoms reported Skin: no symptoms reported All Other Systems Reviewed Negative Unless Noted: Yes Physical Exam Vital Signs Vital Signs - First Documented 08/12/19 08/12/19 16:39 18:49 Temp 36.8 Pulse 102 Resp 18 B/P (MAP) 136/62 (86) Pulse Ox 95 O2 Delivery Room Air Capillary Refill : Height, Weight, BMI Height: '" Weight: lbs. oz. kg; BMI Method: General Appearance: No Apparent Distress, WD/WN, Obese HEENT: Moist Mucous Membranes Neck: Full Range of Motion Respiratory: Lungs Clear Cardiovascular: Regular Rate, Rhythm, No Edema Gastrointestinal: Normal Bowel Sounds, Soft, Hernia, Other (diffusely tender but no guarding or rebound. large abdominal wall hernia that is soft and non-tender) Extremity: Normal Capillary Refill Neurologic/Psychiatric: Alert, Oriented x3 Progress/Results/Core Measures Suspected Sepsis SIRS Temperature: Pulse: Respiratory Rate: Laboratory Tests 08/12/19 16:45: White Blood Count 18.7H Blood Pressure / Mean: Laboratory Tests 08/12/19 16:45: Creatinine 1.97H, Platelet Count 294, Total Bilirubin 0.5 Results/Orders Lab Results Laboratory Tests Test 6/28/20 16:41 08/12/19 16:45 08/12/19 17:49 Range/Units Urine Color YELLOW YELLOW Urine Clarity CLOUDY TURBID Urine pH 5.5 5.5 5-9 Urine Specific [place] 1.025 H >=1.030 1.016-1.022 Urine Protein 1+ H 1+ H NEGATIVE Urine Glucose (UA) NEGATIVE NEGATIVE NEGATIVE Urine Ketones NEGATIVE TRACE H NEGATIVE Urine Nitrite NEGATIVE NEGATIVE NEGATIVE Urine Bilirubin 1+ H 1+ H NEGATIVE Urine Urobilinogen 0.2 0.2 < = 1.0 MG/DL Urine Leukocyte Esterase 2+ H TRACE H NEGATIVE Urine RBC (Auto) NEGATIVE NEGATIVE NEGATIVE Urine RBC NONE NONE /HPF Urine WBC 25-50 H 0-2 /HPF Urine Squamous Epithelial Cells 10-25 H 10-25 H /HPF Urine Crystals NONE NONE /LPF Urine Calcium Oxalate Crystals /LPF Urine Cystine Crystals /LPF Urine Amorphous Sediment /LPF Urine Bacteria TRACE MODERATE H /HPF Urine Casts NONE PRESENT /LPF Urine Mucus SMALL H SMALL H /LPF Urine Culture Indicated YES NO White Blood Count 18.7 H 4.3-11.0 10^3/uL Red Blood Count 4.82 4.35-5.85 10^6/uL Hemoglobin 13.3 11.5-16.0 G/DL Hematocrit 42 35-52 % Mean Corpuscular Volume 87 80-99 FL Mean Corpuscular Hemoglobin 28 25-34 PG Mean Corpuscular Hemoglobin Concent 32 32-36 G/DL Red Cell Distribution Width 14.4 10.0-14.5 % Platelet Count 294 130-400 10^3/uL Mean Platelet Volume 12.4 H 7.4-10.4 FL Neutrophils (%) (Auto) 78 H 42-75 % Lymphocytes (%) (Auto) 11 L 12-44 % Monocytes (%) (Auto) 9 0-12 % Eosinophils (%) (Auto) 1 0-10 % Basophils (%) (Auto) 0 0-10 % Neutrophils # (Auto) 14.5 H 1.8-7.8 X 10^3 Lymphocytes # (Auto) 2.1 1.0-4.0 X 10^3 Monocytes # (Auto) 1.6 H 0.0-1.0 X 10^3 Eosinophils # (Auto) 0.1 0.0-0.3 10^3/uL Basophils # (Auto) 0.0 0.0-0.1 10^3/uL Neutrophils % (Manual) 77 % Lymphocytes % (Manual) 16 % Monocytes % (Manual) 4 % Eosinophils % (Manual) 0 % Basophils % (Manual) 0 % Band Neutrophils 2 % Blast Cells 1 % Sodium Level 137 135-145 MMOL/L Potassium Level 5.0 3.6-5.0 MMOL/L Chloride Level 98 98-107 MMOL/L Carbon Dioxide Level 22 21-32 MMOL/L Anion Gap 17 H 5-14 MMOL/L Blood Urea Nitrogen 36 H 7-18 MG/DL Creatinine 1.97 H 0.60-1.30 MG/DL Estimat Glomerular Filtration Rate 25 BUN/Creatinine Ratio 18 Glucose Level 120 H 70-105 MG/DL Calcium Level 10.1 8.5-10.1 MG/DL Corrected Calcium 10.0 8.5-10.1 MG/DL Total Bilirubin 0.5 0.1-1.0 MG/DL Aspartate Amino Transf (AST/SGOT) 15 5-34 U/L Alanine Aminotransferase (ALT/SGPT) 9 0-55 U/L Alkaline Phosphatase 72 40-136 U/L Troponin I < 0.30 <0.30 NG/ML Total Protein 7.1 6.4-8.2 GM/DL Albumin 4.1 3.2-4.5 GM/DL Lipase 94 H 8-78 U/L Urine Hyaline Casts 0-2 H /LPF My Orders Orders - REJI HAMPTON DO Urinalysis (08/12/19 16:33) Ed Iv/Invasive Line Start (08/12/19 16:33) Cbc With Automated Diff (08/12/19 16:33) Comprehensive Metabolic Panel (08/12/19 16:33) Lipase (08/12/19 16:33) Ct Abdomen/Pelvis W Wo (08/12/19 16:33) Troponin I Fs (08/12/19 16:33) Ekg Tracing (08/12/19 16:33) Ondansetron Injection (Zofran Injectio (08/12/19 17:00) Ns Iv 500 Ml (Sodium Chloride 0.9%) (08/12/19 17:00) Manual Differential (08/12/19 16:45) Urine Culture (08/12/19 16:41) Ct Abdomen/Pelvis Wo (08/12/19 16:46) Straight Cath (Urinary) (08/12/19 17:46) Urinalysis (08/12/19 17:46) Ns Iv 1000 Ml (Sodium Chloride 0.9%) (08/12/19 18:00) Ng/Feeding Tube Insertertion (08/12/19 18:52) Medications Given in ED Current Medications Medications Dose Ordered Sig/Thierno Route Start Time Stop Time Status Last Admin Dose Admin Ondansetron HCl 4 mg ONCE ONCE IVP 08/12/19 17:00 08/12/19 17:01 DC 08/12/19 16:57 4 MG Vital Signs/I&O 08/12/19 08/12/19 16:39 18:49 Temp 36.8 Pulse 102 84 Resp 18 18 B/P (MAP) 136/62 (86) 120/55 Pulse Ox 95 97 O2 Delivery Room Air Capillary Refill : Progress Note : Time: 17:44 Progress Note Patient is evaluated on arrival to her room. She has a large hernia in the abdominal wall that is soft and nontender. She has some subjective tenderness to palpation about the abdomen but no peritoneal signs. She was recently treated for UTI with amoxicillin. Will do standard abdominal pain workup. Zofran is ordered for nausea. We will give gentle IV fluid bolus. 17:44: CT scan pending. Labs are reviewed. Creatinine is 1.9. The most recent available creatinine is from March 2018 and was 1.14. Creatinine just prior to that was normal range. Because of this, CT scan is changed to be done without contrast. We will continue IV fluids. Patient has notable leukocytosis. Urinalysis is with pyuria but is contaminated sample. Will repeat urine with straight catheter specimen and continue IV fluids. 18:30: CT scan results are returned. Patient has probable bowel obstruction. IV hydration continued in the ER. Repeat urinalysis which was a straight catheter sample was not revealing for significant pyuria. I spoke to Dr. Gauthier, hospitalist, who accepted the patient for admission to [facility]. Patient is also agreeable to this plan of care. 18:50: Discussed this patient with Dr. Sun her request NG tube be placed. Nursing staff notified and orders placed in the computer for NG tube. Gastrografin study added to a.m. orders. Transfer pending. Patient continues to rest comfortably. No vomiting in the ER. No significant pain. Of note, patient is s/p cardiac stent placement and does take plavix 75 mg daily. ECG Initial ECG Impression Date: Aug 12, 2019 Initial ECG Impression Time: 16:55 Initial ECG Rate: 94 Initial ECG Rhythm: Normal Sinus Departure Communication (Admissions) Time/Spoke to Admitting Phy: 18:30 Dr. Gauthier Time/Spoke to Consulting Phy: 18:50 Dr. Sun Impression Primary Impression: Small bowel obstruction Disposition: ADMITTED INPATIENT Condition: Stable Admissions Decision to Admit Reason: Admit from ER (General) Decision to Admit/Date: Aug 12, 2019 Time/Decision to Admit Time: 18:30 Transfer Transfer Reason: Exceeds level of care REJI HAMPTON DO Aug 12, 2019 16:31
[2019-08-12 16:56] LABS: BASOPHILS % (AUTO) 0 % (0-10); EOSINOPHILS % (AUTO) 1 % (0-10); HEMATOCRIT 42 % (35-52); HEMOGLOBIN 13.3 G/DL (11.5-16.0); LYMPHOCYTES % (AUTO) 11 % (12-44); MEAN CORPUSCULAR HEMOGLOBIN 28 PG (25-34); MEAN CORPUSCULAR HGB CONC 32 G/DL (32-36); MEAN CORPUSCULAR VOLUME 87 FL (80-99); MEAN PLATELET VOLUME 12.4 FL (7.4-10.4); MONOCYTES % (AUTO) 9 % (0-12); NEUTROPHILS % (AUTO) 78 % (42-75); PLATELET COUNT 294 10^3/uL (130-400); RED CELL DISTRIBUTION WIDTH 14.4 % (10.0-14.5); WHITE BLOOD COUNT 18.7 10^3/uL (4.3-11.0)
[2019-08-12 16:57] LABS: EOSINOPHILS # (AUTO) 0.1 10^3/uL (0.0-0.3); LYMPHOCYTES # (AUTO) 2.1 X 10^3 (1.0-4.0); MONOCYTES # (AUTO) 1.6 X 10^3 (0.0-1.0); NEUTROPHILS # (AUTO) 14.5 X 10^3 (1.8-7.8)
[2019-08-12] MEDS ORDERED: NS IV 500 ML 500 ML IV SCH (17:00)
[2019-08-12] MEDS ORDERED: ONDANSETRON 4 MG/2 ML (SDV) Z0FRAN IVP ONE (17:00)
[2019-08-12 17:06] LABS: CLARITY,URINE CLOUDY; COLOR,URINE YELLOW; GLUCOSE, URINE (UA) NEGATIVE (NEGATIVE); KETONES,URINE NEGATIVE (NEGATIVE); PH,URINE 5.5 (5-9); PROTEIN,URINE 1+ (NEGATIVE)
[2019-08-12 17:11] LABS: NITRITE,URINE NEGATIVE (NEGATIVE)
[2019-08-12 17:12] LABS: BACTERIA,URINE TRACE /HPF; BILIRUBIN,URINE 1+ (NEGATIVE); LEUKOCYTE ESTERASE ,URINE 2+ (NEGATIVE); WBC,URINE 25-50 /HPF
[2019-08-12 17:23] LABS: ALANINE AMINOTRANSFERASE 9 U/L (0-55); ALKALINE PHOSPHATASE 72 U/L (40-136); BILIRUBIN,TOTAL 0.5 MG/DL (0.1-1.0); BUN/CREATININE RATIO 18; CALCIUM 10.1 MG/DL (8.5-10.1); CARBON DIOXIDE 22 MMOL/L (21-32); CHLORIDE 98 MMOL/L (98-107); CREATININE SERUM 1.97 MG/DL (0.60-1.30); GFR ESTIMATED 25; GLUCOSE 120 MG/DL (70-105); SODIUM 137 MMOL/L (135-145)
[2019-08-12 17:24] LABS: ALBUMIN 4.1 GM/DL (3.2-4.5); LIPASE 94 U/L (8-78); TOTAL PROTEIN 7.1 GM/DL (6.4-8.2)
[2019-08-12 17:26] LABS: BAND NEUTROPHILS 2 %; BASOPHILS % (MANUAL) 0 %; BLAST CELLS 1 %; EOSINOPHILS % (MANUAL) 0 %; LYMPHOCYTES % (MANUAL) 16 %; MONOCYTES % (MANUAL) 4 %; NEUTROPHILS % (MANUAL) 77 %
--- NOTE | 2019-08-12 17:59 | Diagnostic Imaging Report ---
EXAMINATION: CT abdomen and pelvis without contrast. TECHNIQUE: Multiple contiguous axial images were obtained through the abdomen and pelvis without the use of intravenous contrast. All CT scans use one or more of the following dose optimizing techniques: automated exposure control, MA and/or KvP adjustment based on patient size and exam type or iterative reconstruction. HISTORY: Colon cancer, abdominal pain. COMPARISON: 03/19/2016. FINDINGS: Limited views of the lower thorax show heavy coronary artery calcifications. There is no suspicious liver lesion. A tiny hypoechoic lesion in the dome is unchanged. There is no biliary ductal dilation. Gallbladder is normal. Pancreas is normal. Spleen is normal. Adrenal glands are normal. There are numerous right-sided renal stones measuring up to 5 mm. No hydronephrosis. No ureteral stones are seen. Urinary bladder is normal. There is a left lower quadrant ventral hernia containing transverse colon without obstruction. There is another large right lower quadrant ventral hernia containing small and large bowel. There are several additional smaller hernias containing loops of small bowel. There are multiple areas of bowel angulation indicative of adhesions. The proximal small bowel is dilated and the distal bowel is decompressed. It is difficult to identify the transition point, but it is likely within the large right lower quadrant hernia sac. No free fluid or air. No abdominal or pelvic lymphadenopathy. Aorta is normal in caliber without aneurysm. There are no suspicious osseus lesions. IMPRESSION: Findings consistent with a small bowel obstruction with dilated proximal bowel and decompressed distal bowel. The transition point is difficult to identify but is likely within the large hernia sac in the right lower quadrant. Dictated by: Dictated on workstation # [id number]
[2019-08-12] MEDS ORDERED: NS IV 1000 ML 1,000 ML IV SCH (18:00)
[2019-08-12 18:06] LABS: BILIRUBIN,URINE 1+ (NEGATIVE); CLARITY,URINE TURBID; COLOR,URINE YELLOW; GLUCOSE, URINE (UA) NEGATIVE (NEGATIVE); KETONES,URINE TRACE (NEGATIVE); LEUKOCYTE ESTERASE ,URINE TRACE (NEGATIVE); NITRITE,URINE NEGATIVE (NEGATIVE); PH,URINE 5.5 (5-9); PROTEIN,URINE 1+ (NEGATIVE); WBC,URINE 0-2 /HPF
[2019-08-12 18:07] LABS: BACTERIA,URINE MODERATE /HPF; HYALINE CASTS, URINE 0-2 /LPF
--- OUTSIDE RECORDS SUMMARY | 2019-08-12 19:00 | XMS REPORT | Encounter Summary ---
Author Author [facility] Organization [facility] Address Unknown Phone Unavailable Care Team Providers Care Store Keeper Name Role Phone Johan Marte PCP Reason for Referral * Surgical (Routine) Referred By Contact Referred To Contact Status Reason Specialty Diagnoses / [place] [address] [place] [address] Wang Crane MD [address] [facility] [address] [place] [address] Closed Specialty Services General Surgery Diagnoses Required Incisional hernia, without obstruction or gangrene Encounter Details Care Team Description Date Type Department Dayana Patel RN Incisional hernia, without obstruction o r gangrene (Primary Dx) 05/05/2016 Orders Only [facility] [address] [place] [address] Social History Date Tobacco Use Types Packs/Day Years Used Never Smoker Smokeless Tobacco: Never Used Drinks/Week oz/Week Comments Alcohol Use No Sex Assigned at Date Recorded Not on file Industry Job Start Date Occupation Not on file Not on file Not on file Travel End Travel History Travel Start No recent travel history available. documented as of this encounter Plan of Treatment Order Schedule Name Type Priority Associated Diag noses Ordered: 05/05/2016 Amb Referral To General Outpatient Routine Incisi onal hernia, Surgery Referral without obstruction or gangrene documented as of this encounter Visit Diagnoses Diagnosis Incisional hernia, without obstruction or gangrene documented in this encounter
--- OUTSIDE RECORDS SUMMARY | 2019-08-12 19:00 | XMS REPORT | Encounter Summary ---
Author Author [facility] Organization [facility] Address Unknown Phone Unavailable Care Team Providers Care Women'S Garment Fitter Name Role Phone Johan Marte PCP Reason for Visit * Reason Comments Hernia * Surgical (Routine) Referred By Contact Referred To Contact Status Reason Specialty Diagnoses / [place] [address] [facility] [address] [place] [address] Wang Crane MD [address] [place] [address] Closed Specialty Services General Surgery Diagnoses Required Incisional hernia, without obstruction or gangrene Encounter Details Care Team Description Date Type [place] [address] [facility] [address] [place] [address] [phone] Wang Crane MD [address] [place], [place] [id number] Recurrent incisional hernia with incarce ration (Primary Dx) 05/19/2016 Office Visit [facility] [address] [place], [place] [id number] Social History Date Tobacco Use Types Packs/Day Years Used Never Smoker Smokeless Tobacco: Never Used Drinks/Week oz/Week Comments Alcohol Use No Sex Assigned at Date Recorded Not on file Industry Job Start Date Occupation Not on file Not on file Not on file Travel End Travel History Travel Start No recent travel history available. documented as of this encounter Last Filed Vital Signs Reading Time Taken Comments Vital Sign 139/75 05/19/2016 10:56 AM CDT Blood Pressure 76 05/19/2016 10:56 AM CDT Pulse - - Temperature - - Respiratory Rate - - Oxygen Saturation - - Inhaled Oxygen Concentration 85.7 kg (189 lb) 05/19/2016 10:56 AM CDT Weight 157.5 cm (5' 2") 05/19/2016 10:56 AM CDT Height 34.57 05/19/2016 10:56 AM CDT Body Mass Index documented in this encounter Progress Notes * Wang Crane MD - 05/19/2016 11:00 AM CDT [facility] Surgical Services Consult PATIENT NAME: Zenobia Beltran DATE: 05/19/2016 AGE: 71 y.o. : 1945 REASON FOR CONSULT: Recurrent incisional hernia HISTORY OF PRESENT ILLNESS: Mrs. Beltran is a 71-year-old white female with a history of an open abdominal hy sterectomy. After that she developed an incisional hernia. She states that thi s was about 15 years ago. She underwent an open repair at that time, which she believes involved placement of mesh. About a year liter the hernia recurred, an d she underwent another open repair with mesh. She states that about a year aft er that she noticed the recurrence once again. The hernia has been quite large for some time, but she denies any real change in size recently. She denies any pain associated with it whatsoever. She also denies any overt obstructive sympt oms, but states that a couple of months ago she was transferred to [facility] for co ncerns of a possible bowel obstruction. She did not have an NG tube placed, and her symptoms resolved spontaneously. She states that she was having bowel move ments at that time. She has had evaluations which have revealed a very large in cisional hernia. She is also in [place], who told her that she would never get o ff a breathing machine if she had a fixed. She then saw Dr. Dempsey he recommen ded evaluation by me due to the size and complexity of the hernia. She also has a history of a CABG a few months ago as well. PAST MEDICAL HISTORY: Past Medical History Diagnosis Date Diabetes mellitus (HCC) Hyperlipidemia Hypertension Kidney stone Myocardial infarction (HCC) PAST SURGICAL HISTORY: Past Surgical History Procedure Laterality Date Hernia repair Right Hernia repair Left FAMILY HISTORY: History reviewed. No pertinent family history. SOCIAL HISTORY: Social History Social History Marital status: Unknown Spouse name: N/A Number of children: N/A Years of education: N/A Occupational History Not on file. Social History Main Topics Smoking status: Never Smoker Smokeless tobacco: Never Used Alcohol use No Drug use: No Sexual activity: Not on file Other Topics Concern Not on file Social History Narrative ALLERGIES: Crestor [rosuvastatin]; Diphenhydramine-acetaminophen; Lipitor [atorvastatin]; G lyburide; and Levaquin [levofloxacin] REVIEW OF SYSTEMS: A 10-point Review of Systems was performed and is negative except for those item s mentioned in the HPI or below. ROS PHYSICAL EXAM: Blood Pressure: BP: 139/75 Pulse: Pulse: 76 Temperature: Respirations: Admission Weight: Weight: 85.7 kg (189 lb) O2 Saturation: Today's Weight: Weight: 85.7 kg (189 lb) BMI: Body mass index is 34.57 kg/(m^2). General Appearance: Alert, cooperative, no distress Neurologic: Cranial nerves grossly intact Neck: Supple, symmetrical, trachea midline Respiratory: Lungs clear to auscultation bilaterally Heart: Regular rate and rhythm, S1 and S2 normal, no murmur Abdomen: soft, nondistended, positive bowel sounds. She has a giant loss of domain chronically incarcerated recurrent incisional hernia. It is nonreducibl e. Extremities: Extremities normal, no edema Skin: No rashes or lesions Psychiatric: Normal appearing mood and affect LAB RESULTS: No results for input(s): WBC, HGB, HCT, PLT in the last 72 hours. No results for input(s): NA, K, CL, CO2, BUN, CREAT, CALCIUM, ALBUMIN, PROTEIN, BILITOTAL, ALKPHOS, ALT, AST, GLUCOSE, PHOS, MG, LIPASE, APTT, INR, PTT in the l ast 72 hours. RADIOLOGY: CT of the abdomen and pelvis performed at an outside institution on April 09, 2016 was personally reviewed by me. This does reveal a giant loss of domain re current incisional hernia. ASSESSMENT: Giant recurrent incisional hernia with loss of domain. PLAN: At this point I do think that she would benefit from having it repaired. It jim l continue to increase in size, and she does carry a risk of incarceration and s trangulation. She was instructed to wait for a while after her heart surgery to undergo another operation. She is currently no longer doing cardiac rehabilita tion. I expressed to her that I felt that 6 months after CABG would be reasonab le. This would put surgery in about July. She is going to decide if she wants to undergo surgery at that time. Risks of the procedure including bleeding, inf ection, short term ventilator use, recurrence, mesh infection, damage to surroun ding structures, and need for further surgery were discussed. She voiced unders tanding with that as well. We will plan on moving forward with an open recurren t incisional hernia repair with abdominal wall reconstruction if and when she de cides she wants to do it. We will need to get cardiac clearance prior to surger y. She will also need to hold her Plavix and aspirin for a week prior to surger y. cc: MD Ke Lovett, Hayden Dawson MD Parts of this note were generated with voice recognition software, please excuse any typographical or grammatical errors. Electronically signed by Wang Crane 05/19/2016 1:06 PM documented in this encounter Plan of Treatment Order Schedule Name Type Priority Associated Diag noses Ordered: 05/05/2016 Amb Referral To General Outpatient Routine Incisi onal hernia, Surgery Referral without obstruction or gangrene documented as of this encounter Visit Diagnoses Diagnosis Recurrent incisional hernia with incarc eration documented in this encounter
--- OUTSIDE RECORDS SUMMARY | 2019-08-12 19:00 | XMS REPORT | Clinical Summary ---
Author Author [facility] Organization [facility] Address Unknown Phone Unavailable Care Team Providers Care Bakery And Deli Sales Manager Name Role Phone Johan Marte MD PCP Unavailable Naina Carreno MD 21 Unavailable Source Comments Some departments are not documenting in the electronic medical record. If you d o not see the information that you expected, contact Release of Information in located within [facility] [employer] Information Management department at [phone] for further assistan ce in locating additional records.[facility] Allergies Comments Active Allergy Reactions Severity Noted Date Diphenhydramine-Acetamino JOINT PAIN, Medium 12/16 phen MUSCLE PAIN Atorvastatin JOINT PAIN, Medium 05/05/2016 MUSCLE PAIN Leg's jerking & Sleep Disturbance Diphenhydramine-Zinc SEE COMMENTS Low 8 Acetate Rosuvastatin JOINT PAIN, Medium 01/12/2018 MUSCLE PAIN Glyburide JOINT PAIN, Medium 01/12/2018 MUSCLE PAIN Levofloxacin UNKNOWN Low 01/12/2018 Sulfa (Sulfonamide JOINT PAIN, Medium 01/12/2018 Antibiotics) MUSCLE PAIN Medications End Date Status Medication Sig Dispensed Refills Start Date Active diazePAM (VALIUM) 2 mg Take 1 2mg 1 tablet 0 tabletIndications: Rectal tab PO 30 8 cancer (HCC), minutes prior 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 Active amLODIPine (NORVASC) 5 mg Take 5 mg by 0 10/0 8/201 tablet mouth twice 8 daily. Active metFORMIN (GLUCOPHAGE) Take 1,000 mg 0 //2 01 1,000 mg tablet by mouth 8 twice daily. Active isosorbide mononitrate SR Take 30 mg by 0 / (IMDUR) 30 mg tablet mouth daily 8 with breakfast. Active carvedilol (COREG) 6.25 Take 6.25 mg 0 mg tablet by mouth 8 twice daily with meals. Active pantoprazole DR Take 40 mg by 0 (PROTONIX) 40 mg tablet mouth twice 8 daily. Active clopiDOGrel (PLAVIX) 75 Take 75 mg by 0 mg tablet mouth daily. [address] (CYMBALTA) Take 30 mg by 0 12/26 30 mg capsule mouth daily. 8 Active fenofibrate(+) (TRIGLIDE) Take 160 mg 0 10/16 160 mg tablet by mouth 8 daily. Active citalopram (CELEXA) 20 mg Take 20 mg by 0 11/16 tablet mouth at 8 bedtime daily. Active losartan (COZAAR) 50 mg Take 50 mg by 1 tablet mouth daily. 8 Active docusate (COLACE) 100 mg Take 100 mg 0 capsule by mouth twice daily. Active vitamins, multi Take 1 tablet 0 w/minerals 9 mg iron-400 by mouth mcg tab daily. Active aspirin EC 81 mg tablet Take 81 mg by 0 mouth daily. Take with food. Active Calcium Carbonate Take 1 tablet 0 (CALCIUM 600) 600 mg by mouth calcium (1,500 mg) tab twice daily. Active C,E,zinc,copper Take 1 0 [id number] (OCUVITE capsule by ADULT 50 PLUS) 250-5-1 mg mouth daily. cap Active oxyCODONE (ROXICODONE, Take one 10 tablet 0 OXY-IR) 5 mg tablet tablet by 8 mouth every 4 hours as needed for Pain (associated with drain) Earliest Fill Date: 01/14/18 Active Problems Problem Noted Date Rectal cancer 01/23/2018 Overview: 12/23/17 - Colonoscopy Findings:-divert iculosis, moderate in degree, involving the sigmoid-polyp(s) - #1, la rge mm in size, Sessile, the rectum, biopsied, - #2, 2 mm in size, Flat, 90 cm from anal verge, removed by cold biopsy and sent for pathology-incomplet e colonoscopy due to large ventral hernia, Specimens: biopsies of mucosa a t fascia edge, polyps at 90 cm from anal verge and rectum (5 cm from anal v erge) PathologyRectum, mass, biopsy: Tubulovi llous adenoma with focal complex growth and severe atypia. Rectum, mass, biopsy: Low grade colonic adenocarcinoma arising in a tubulovillo us adenoma, see comment. 12/29/17 - Last seen by Dr. Gm Padilla 01/12/18 - Consult with Dr. Benedict and dietitian, CT C/A/P, 3T pelvic MRI and CBC, CMP, CEA, and INR planned. 01/12/18 - CT C/A/P IMPRESSION CHEST: No evidence of thoracic metastatic disease. ABDOMEN AND PELVIS: Development of an abscess and surrounding peritonitis within the large right lower quadrant h ernia. This is likely secondary to an inflamed and perforated appendix. Low rectal tumor , better evaluated on same day MRI. Two unchanged liver lesions which are likely cysts or hemangiomas. Mild right pelvocaliectasis with likely a UP J stenosis. No obstructing renal calculi present. 01/12/18 - MRI Pelvis IMPRESSION Nodul ar polypoid mass in the low rectum without definite extramural invasion or lymphadenopathy. Radiologic stage T2. Two anterior abdominal wall hernia s containing nonobstructed loops of large and small bowel as described. Thi ck-walled fluid collection dependently within the lower hernia is better evaluated on same-day CT. Free peritoneal gas within this herni a is also better evaluated on CT. Rectal cancer 01/23/2018 Cancer Staging: Clinical: Stage IIA (cT 3, cN0, cM0) - Signed by Stu Minaya MD on 01/24/2018 Intra-abdominal abscess 01/13/2018 Appendicitis 01/12/2018 Family History Medical History Relation Name Comments Depression Father Heart Disease Father Heart Disease Maternal Aunt None Reported Maternal Grandfather Diabetes Maternal Grandmother Heart Disease Maternal Uncle Heart Disease Mother High Cholesterol Mother Unknown to Patient Paternal Grandfather Unknown to Patient Paternal Grandmother Coronary Artery Disease Sister Depression Sister High Cholesterol Sister Stroke Sister Relation Name Status Comments Father Maternal Aunt Maternal Grandfather Maternal Grandmother Maternal Uncle Mother Paternal Grandfather Paternal Grandmother Sister Social History Date Tobacco Use Types Packs/Day Years Used Never Smoker Smokeless Tobacco: Never Used Drinks/Week oz/Week Comments Alcohol Use No Sex Assigned at Date Recorded Not on file Industry Job Start Date Occupation Not on file Not on file Not on file Travel End Travel History Travel Start No recent travel history available. Last Filed Vital Signs Reading Time Taken Comments Vital Sign 147/58 01/24/2018 1:27 PM [employer] Blood Pressure 50 01/24/2018 1:27 PM [employer] Pulse 36.7 C (98.1 F) 01/24/2018 1:27 PM [employer] Temperature 16 01/24/2018 1:27 PM [employer] Respiratory Rate 97% 01/24/2018 1:27 PM [employer] Oxygen Saturation - - Inhaled Oxygen Concentration 82.1 kg (181 lb) 01/24/2018 1:27 PM [employer] Weight 157.5 cm (5' 2") 01/24/2018 1:27 PM [employer] Height 33.1 01/24/2018 1:27 PM [employer] Body Mass Index Plan of Treatment Health Maintenance Due Date Last Done Comments MEDICARE ANNUAL WELLNESS 1945 VISIT DTAP/TDAP VACCINES (1 - 1965 Tdap) HEPATITIS C SCREENING 1965 PHYSICAL (COMPREHENSIVE) 1965 EXAM BREAST CANCER SCREENING 1987 COLORECTAL CANCER 1997 SCREENING SHINGLES RECOMBINANT 1997 VACCINE (1 of 2) OSTEOPOROSIS 2012 SCREENING/MONITORING PNEUMONIA (PPSV23) 2012 VACCINE (1 of 1 - PPSV23) INFLUENZA VACCINE 11/15/2019 Results Not on filefrom Last 3 Months Insurance Type Payer Benefit Subscriber ID Effective Phone Address Plan / Dates Group Medicare MEDICARE MEDICARE xxxxxxxxxxx 2012-P PART A AND resent B PPO [facility] xxxxxxxxxxx 2017-P resent [id number] Advance Directives Patient Tenant Coordinator Explanation Type Date Recorded Advance 01/12/2018 1:58 PM Directive/DPOA Date Inactivated Comments Code Status Date Activated 01/14/2018 11:09 AM Full Code 01/12/2018 4:51 PM Provider has discussed Code Status No, discussion no t w/Patient or Family? necessary based on Dx
--- OUTSIDE RECORDS SUMMARY | 2019-08-12 19:00 | XMS REPORT | Encounter Summary ---
Author Author [facility] Organization [facility] Address Unknown Phone Unavailable Care Team Providers Care Yard Jacker Name Role Phone Johan Marte PCP Reason for Visit * Reason Comments Hernia Encounter Details Care Team Description Date [place] [address] [place] [address] [phone] Type 2 diabetes mellitus without complic ation, without long- term current use of insulin (Primary Dx); Essential hypertension; Recurrent incisional hernia; Hyperlipidemia, unspecified hyperlipidemia type; Gastroesophageal reflux disease, esophagitis presence not specified 05/05/2016 Initial consult [facility] [address] [place] [address] Social History Date Tobacco Use Types Packs/Day Years Used Never Smoker Smokeless Tobacco: Never Used Tobacco Cessation: Counseling Given: No Drinks/Week oz/Week Comments Alcohol Use No Sex Assigned at Date Recorded Not on file Industry Job Start Date Occupation Not on file Not on file Not on file Travel End Travel History Travel Start No recent travel history available. documented as of this encounter Last Filed Vital Signs Reading Time Taken Comments Vital Sign 139/82 05/05/2016 10:31 AM CDT Blood Pressure 75 05/05/2016 10:31 AM CDT Pulse 36.3 C (97.3 F) 05/05/2016 10:31 AM CDT Temperature 20 05/05/2016 10:31 AM CDT Respiratory Rate - - Oxygen Saturation - - Inhaled Oxygen Concentration 84.1 kg (185 lb 4.8 oz) 05/05/2016 10:31 AM CDT Weight 157.5 cm (5' 2") 05/05/2016 10:31 AM CDT Height 33.89 05/05/2016 10:31 AM CDT Body Mass Index documented in this encounter Progress Notes * Hayden Dempsey MD - 05/05/2016 10:30 AM CDT [facility] Surgical Services Office Consult Note Patient ID: Zenobia Beltran is a 71 y.o. female 1945 CSN: [id number] PCP: Johan Marte MD Physician requesting consultation: No ref. provider found Assessment: Problem List Items Addressed This Visit Digestive Gastroesophageal reflux disease Relevant Medications metoclopramide (REGLAN) 10 MG tablet Endocrine Type 2 diabetes mellitus without complication, without long-term current use of insulin - Primary Relevant Medications glipiZIDE (GLUCOTROL) 10 MG tablet Cardiovascular and Mediastinum Essential hypertension Relevant Medications carvedilol (COREG) 3.125 MG tablet fenofibrate (TRICOR) 145 MG tablet nitroglycerin (NITROSTAT) 0.4 MG SL tablet lisinopril (PRINIVIL,ZESTRIL) 10 MG tablet Other Recurrent incisional hernia Hyperlipidemia Recommendations: She is not sure if she wants to proceed with surgery. I recommended getting an opinion from Dr. Mahendra Crane because of the complex nature of this hernias. She would need cardiac clearance prior to any surgery. She would also need to s top her Plavix prior to any surgery, temporarily. Her spot machine operator once her to wait until about 11 months after her coronary bypass before proceeding with any surgery, if she moves in that direction. HPI: Zenobia Beltran is a 71 y.o. female who is being seen in consultation for recurre nt incisional hernias. She has a lower abdominal incisional hernia, presumably from a incision, that was repaired over 16 years ago, she does not rem ember exactly when. She says it recurred within 1-2 years after the initial rep air. She had the recurrent hernia repaired about 16 years ago. She also develo ped an upper abdominal midline incisional hernia that has not been repaired. jhonatan has occasional discomfort, but does not have symptoms of bowel obstruction. C T images are in our system, although they are from an outside source, and I revi ewed them. There are 2 moderate to large sized defects, with a significant amou nt of bowel and colon involved in the hernia sacs. She had a coronary bypass in January of last year. She takes Plavix. Past Medical History Diagnosis Date Diabetes mellitus (HCC) Hyperlipidemia Hypertension Kidney stone Myocardial infarction (HCC) Past Surgical History Procedure Laterality Date Hernia repair Right Hernia repair Left Patient Active Problem List Diagnosis Type 2 diabetes mellitus without complication, without long-term current use of insulin Essential hypertension Recurrent incisional hernia Hyperlipidemia Gastroesophageal reflux disease No family history on file. Social History Social History Marital status: Unknown Spouse name: N/A Number of children: N/A Years of education: N/A Occupational History Not on file. Social History Main Topics Smoking status: Never Smoker Smokeless tobacco: Never Used Alcohol use No Drug use: No Sexual activity: Not on file Other Topics Concern Not on file Social History Narrative No narrative on file Allergies Allergen Reactions Crestor [Rosuvastatin] Muscle aches/pain Diphenhydramine-Acetaminophen Knocks her out Lipitor [Atorvastatin] Muscle aches/pain Glyburide Rash Levaquin [Levofloxacin] Rash Current Medications Current Outpatient Prescriptions Medication Sig Dispense Refill clopidogrel (PLAVIX) 75 mg tablet Take 75 mg by mouth daily. docusate sodium (COLACE) 100 MG capsule Take 100 mg by mouth 2 (two) times a day. fenofibrate (TRICOR) 145 MG tablet Take 145 mg by mouth daily. glipiZIDE (GLUCOTROL) 10 MG tablet Take 10 mg by mouth 2 (two) times a day b efore breakfast and dinner. lisinopril (PRINIVIL,ZESTRIL) 10 MG tablet Take 10 mg by mouth daily. metformin (GLUCOPHAGE) 1000 mg tablet Take 1,000 mg by mouth 2 (two) times a day with meals. multivitamin with minerals (THERAGRAN M) tablet Take 1 tablet by mouth daily . nitroglycerin (NITROSTAT) 0.4 MG SL tablet Dissolve 0.4 mg under the tongue every 5 (five) minutes as needed for chest pain. May repeat for a total of 3 dos es. omega 3 fish oil (SEA OMEGA) 500-1,000 mg capsule Take 1,000 mg by mouth emily ly. carvedilol (COREG) 3.125 MG tablet Take 3.125 mg by mouth 2 (two) times a da y. 6 metoclopramide (REGLAN) 10 MG tablet Take 10 mg by mouth 4 (four) times a da y. 0 pantoprazole (PROTONIX) 40 MG tablet Take 40 mg by mouth daily. 6 No current facility-administered medications for this visit. ROS Physical Exam: Vitals: 05/05/16 1031 BP: 139/82 Pulse: 75 Resp: 20 Temp: 36.3 C (97.3 F) Body mass index is 33.89 kg/(m^2). Weight: 84.1 kg (185 lb 4.8 oz) General: Alert and oriented and in no apparent distress. HEENT: Normocephalic, atraumatic. Sclera: Anicteric. Neck: Supple, no masses, no bruits, no lymphadenopathy. Chest: Clear to auscultation bilaterally. No crackles or wheezes. Cardiovascular: Regular rate and rhythm. Abdomen: Soft, non-tender, 2 large incisional hernias, one in the upper midline/ left abdomen, and a large hernia in the right lower quadrant, no cellulitis or s kin changes, palpable mesh and suture material is present beneath the skin. Extremities: Non-tender, no edema. Skin: Grossly normal. Neurological: Cranial nerves are grossly intact. Mood and affect is normal. Electronically signed by: Hayden Dempsey MD, [facility] 05/05/16 documented in this encounter Plan of Treatment Not on filedocumented as of this encounter Visit Diagnoses Diagnosis Type 2 diabetes mellitus without compli cation, without long-term current use of insulin Essential hypertension Unspecified essential hypertension Recurrent incisional hernia Hyperlipidemia, unspecified hyperlipide anthony type Gastroesophageal reflux disease, esopha gitis presence not specified documented in this encounter
--- OUTSIDE RECORDS SUMMARY | 2019-08-12 19:00 | XMS REPORT ---
Author Author [place] [facility] [employer] [facility] Address [address] [address] Care Team Providers Care Welder First Class Name Role Phone AMAURY HORTON Unavailable GLADYS MARTÍNEZ MD Unavailable Unavailable GLADYS MARTÍNEZ MD Unavailable Unavailable AMAURY HORTON Unavailable Unavailable AMAURY HORTON Unavailable Unavailable Unavailable Unavailable Unavailable Unavailable Unavailable Unavailable Unavailable Allergies The data below is from unstructured sources No Information Medications Medication Ingredient Drug Dose Dates Status Sig Sig Care Class(es) (Normalized) (Original) Provid er sucralfate Sucralfate Aluminum 1000 Active take 1 Carafate 1 n o 1000 mg Translation Complex mg tablet by GM Orally name oral tablet s: [ mouth twice Twice a day (1 source.) Carafate 1 daily 1 tablet on GM] an empty stomach 12h 30 day(s) Active Problems Active Problems Problem Normalized Date Last Normalized Normalized Provider Devin delgado Classification Problem(s) Recorded Problem Problem Sta tus Duration Other upper Acute Episodic Active AMAURY HORTON [facility] ity respiratory nasopharyngiti [address] [facility] infections (1 s [common of [place] source.) cold] [place] (44062) Translations: [ - Nasopharyngiti s J00] Anxiety Anxiety Chronic Active GLADYS MARTÍNEZ , Not Avail able disorders (12 disorderMD (98912) sources.) unspecified Coronary Atheroscleroti no information Active GLADYS MARTÍNEZ , Not Available atherosclerlayo bazan heart (67795) s and other disease of heart disease marshall (14 sources.) coronary artery without angina pectoris Translations: [ PRESENCE OF AORTOCORONARY BYPASS GRAFT, PRESENCE OF CORONARY ANGIOPLASTY IMPLANT, PRESENCE OF AORTOCORONARY BYPASS GRAFT] Coronary Atheroscleroti Episodic Active GLADYS MARTÍNEZ [facility] Via atherosclerosi c heart MD Daily s and other disease of Hospital - heart disease marshall Deputy (3 sources.) coronary (99342) artery without angina pectoris Translations: [ PRESENCE OF AORTOCORONARY BYPASS GRAFT, PRESENCE OF CORONARY ANGIOPLASTY IMPLANT] Calculus of Calculus of Episodic Active GLADYS MAURICIO , Not Available urinary tract kidney (57121) (23 sources.) Translations: [ CALCULUS OF KIDNEY WITH CALCULUS OF URET, CALCULUS OF URETER, URINARY CALCULUS, UNSPECIFIED, CALCULUS OF KIDNEY, CALCULUS OF URETER] Chronic kidney Chronic kidney Chronic Active GLADYS MAURICIO , Not Available disease (13 disease, stage MD (08563) sources.) 3 (moderate) Translations: [ - CKD (chronic kidney disease) stage 3, GFR 30-59 ml/min N18.3] Gastritis and Chronic Chronic Active AMAURY HORTON [facility] duodenitis ([id number] [place] [address] Center source.) gastritis of [facility] Translations: [place] (51414) [ Chronic superficial gastritis without bleeding] Coronary Coronary Chronic [facility] Commun[facility] y atherosclerosi atherosclerosi [address] [place], [place] [address]e r s and other s of [facility] heart disease Translations: [place] (00510) (7 sources.) [ Coronary atherosclerosi s, Status anginosus, Stable angina, - Coronary arterioscleros is I25.10, - Stable angina I20.8, Coronary arterioscleros is in marshall artery, Coronary arterioscleros is] Urinary tract Cystitis, Episodic Active GLADYS MAURICIO , Not Available infections (7 unspecified (10507) sources.) without hematuria Translations: [ URINARY TRACT INFECTION, SITE NOT SPECIF, - Acute cystitis with hematuria N30.01] Diverticulosis Diverticular Chronic Active [facility] Community and disease [address] [place] [address] diverticulitis Translations: of [place] (1 source.) [ [place] (56762) Diverticulosis ] Genitourinary Dysuria Episodic Active AMAURY HORTON Comm unity symptoms and Translations: [address] [place] [address] ill-defined [ - Dysuria of [place] conditions (2 R30.0, - [place] (51316) sources.) Urinary pain R30.9] Other Encounter for Episodic Active AMAURY H[facility]ON [facility] screening for screening [address] [place] [address] suspected mammogram for of [place] conditions malignant [place] () (not mental neoplasm of disorders or breast infectious Translations: disease) (1 [ - Screening source.) mammogram, encounter for Z12.31] Essential Essential Chronic Active AMAURY HORTON Communi ty hypertension (primary) [address] [facility] ([address] sources[address] [facility] Translations: [place] () [ - Essential hypertension, benign I10, Essential (primary) hypertension, - Essential (primary) hypertension I10] Esophageal Gastro-esophag Chronic Active GLADYS HUERTAL , No t Available disorders (14 eal reflux MD (39847) sources.) disease without esophagitis Translations: [ GERD with esophagitis, - GERD with esophagitis K21.0] Hypertension Hypertensive Chronic Active GLADYS HUERTAL , No t Available with chronic kidney MD () complications disease with and secondary stage 1 hypertension through stage (12 sources.) 4 chronic kidney disease, or unspecified chronic kidney disease Disorders of Hypertriglycer Chronic Active AMAURY HROTON Community lipid idemia [address]2868 [facility] Center metabolism (2 Translations: of [facility] sources.) [ [place] () Hypertriglycer idemia, - Hypertriglycer idemia E78.1] Residual Immunization Episodic Active AMAURY HORTON Comm unity codes; not carried [id number] [place] [address] unclassified out because of of [facility] (1 source.) patient [place] () refusal Translations: [ - Influenza vaccine refused Z28.21] Sprains and Lumbar sprain Episodic Active AMAURY HORTON C ommunity strains (1 Translations: 58605 [facility] source.) [ Sprain of of [place] lumbar region] [place] () Mood disorders Major Chronic Active AMAURY HORTON Com munity (2 sources.) depressive 11035 [facility] Center disorder, of [place] recurrent, [place] (38165) moderate Translations: [ - Moderate episode of recurrent major depressive disorder F33.1, Moderate episode of recurrent major depressive disorder] Other Morbid obesity Chronic Active AMAURY HORTON Co mmunity nutritional; Translations: 93[address] [facility] endocrine; and [ Severe of [facility] metabolic obesity (BMI [place] () disorders (1 35.0-39.9) source.) with comorbidity] Other Obesity Chronic Active AMAURY HORTON Communit y nutritional; Translations: 94186 [facility] Center endocrine; and [ Obesity (BMI of [facility] metabolic 35.0-39.9 [place] (85959) disorders (1 without source.) comorbidity)] Malaise and Other malaise Episodic Active AMAURY HORTON C ommunity fatigue (2 Translations: 19233 Health Center sources.) [ - Other of [place] malaise [place] (91281) R53.81, - Other fatigue R53.83] Other Pain in joints Episodic Active AMAURY HORTON Co mmunity non-traumatic of left hand 06617 Health Center joint Translations: of [facility] disorders (2 [ - Pain in [place] (32574) sources.) joints of left hand M25.542] Other Pain in joints Episodic Active AMAURY VIERAANI Co mmunity non-traumatic of right hand [address] [place] [address] Center joint Translations: of [facility] disorders (2 [ - Pain in [place] (90235) sources.) joints of right hand M25.541] Other Pain in leg, Episodic Active AMAURY HORTON Comm unity connective unspecified 29892 [facility] tissue disease Translations: of [facility] (1 source.) [ - Pain of [place] (82446) lower extremity, unspecified laterality M79.606] Other Pain in right Episodic Active AMAURY HORTON Com munity connective leg [address] [place] [address] Center tissue disease Translations: of [facility] (3 sources.) [ - Pain of [place] (13845) right lower extremity M79.604, - Right leg pain M79.604] Unclassified Postprocedural no information Active AMAURY VAZQUEZ Community (1 source.) state finding [address] [facility] Center Translations: of [facility] [ Status post [place] (30418) colonoscopy with polypectomy] Miscellaneous Primary Chronic Active AMAURY HORTON [facility] [address] [facility] disorders (2 Translations: of [facility] sources.) [ - Primary [place] (68593) insomnia F51.01, Primary insomnia] Diabetes Type 2 Chronic Active YUKI SOMMER Via mellitus with diabetes MD Ambrosio complications mellitus with Hospital - (11 sources.) diabetic Deputy chronic kidney (84637) disease Translations: [ Diabetic renal disease, Type 2 diabetes with stage 3 chronic kidney disease GFR 30-59, - Type 2 diabetes with stage 3 chronic kidney disease GFR 30-59 E11.22, Chronic kidney disease stage 3 due to type 2 diabetes mellitus, CKD (chronic kidney disease) stage 3, GFR 30-59 ml/min] Diabetes Type 2 Chronic Active GLADYS MAURICIO , Not Avail able mellitus diabetes (12529) without mellitus complication without (9 sources.) complications Translations: [ - Type 2 diabetes mellitus E11.9] Abdominal Ventral hernia Episodic Active GLADYS MAURICIO , [facility] Via hernia (8 without MD Ambrosio sources.) obstruction or Hospital - gangrene Deputy Translations: (49456) [ - Abdominal hernia K46.9, Ventral hernia without obstruction AND without gangrene, Hernia, abdominal, Hernia of abdominal wall, Abdominal hernia] Past or Other Problems Problem Normalized Date Last Normalized Normalized Provider Fa cility Classification Problem(s) Recorded Problem Problem Sta tus Duration Other Adhesive Episodic Completed [facility] Communit y connective capsulitis [place] [address] [place] [address] [facility] (2 sources.) Translations: [place] (59333) [ Frozen shoulder syndrome, Adhesive capsulitis of shoulder] Other Encounter for Episodic Completed GLADYS MAURICIO , Not Available aftercare (3 follow-up (48188) sources.) examination after completed treatment for conditions other than malignant neoplasm Immunizations Encounter for Episodic Completed GLADYS MAURICIO , Not Available and screening screening for (73628) for infectious other disease (9 bacterial sources.) diseases Other [facility] no information no information GLADYS MAURICIO , [facility] Via aftercare (5 (current) use MD Ambrosio sources.) of oral Hospital - hypoglycemic Deputy drugs (64182) Other Other long Episodic Completed GLADYS MAURICIO , [facility] Via aftercare (8 term (current) MD Ambrosio sources.) drug therapy Hospital [facility] (68039) Residual Other no information no information GLADYSALEXANDER HUERTAL , Not Available codes; specified (93743) unclassified postprocedural (7 sources.) states Residual Other Episodic Completed GLADYS MAURICIO , Not Avail able codes; specified (03909) unclassified postprocedural (3 sources.) states Residual Other Episodic Completed GLADYS MAURICIO , [facility] Via codes; specified MD Ambrosio unclassified postprocedural Hospital - (3 sources.) [facility] (17487) Other and Tubulovillous Episodic Completed AMAURYSelvin HORT[place] [address] [facility] benign rectum of [facility] neoplasm (1 Translations: [place] (16362) source.) [ Tubulovillous adenoma of rectum] Procedures Procedure Normalized Procedure Procedure Result Performer Facility Date 10-05-2018 Diagnostic radiologic no information [facility] (98119) 11-29-2018 Mammography no information [facility] (31830) Immunizations Normalized Immunization Date Notes Care Provider Facili ty Immunization tetanus and 03-22-2018 no information no name [facility] diphtheria toxoids, [facility] adsorbed, - [facility] preservative free, (37530) for adult use (5 Lf of tetanus toxoid and 2 Lf of diphtheria toxoid) Results Test Name Value Interpretation Reference Range Date Time Fa cility (Normalized) (Normalized) (Medline Reference) not yet categorized on null BLO Moderate (no code) [facility] (18307) KET 11/13/2018~Hart (no code) [facility] y~Dark [facility] Yellow~Yes~[address] [place] [address] Mg~Neg~Neg (32765) DIONICIO Neg~Large (no code) [facility] (77275) Lot # [id number] (no code) [facility] (10167) SG 1.015 (no code) [facility] (12050) URO 0.2 (no code) [facility] (03301) laboratory on null pH (Bld) 7.0 [pH] (no code) 7.38 - 7.42 [pH] [facility] (89648) Protein (U) 100 mg (no code) [facility] [Mass/Vol] [facility] (10163) laboratory on 2018-10-05 Albumin 4.4 g/dL (N) 3.4 - 5.4 g/dL [facility] [Mass/Vol] [facility] (92146) Albumin/Globulin 1.9 {ratio} (N) 1 - 2.5 {ratio} [facility] [Mass ratio] [facility] () ALP [Catalytic 67 U/L (N) 44 - 147 U/L [facility] Health activity/Vol] [facility] () ALT [Catalytic 11 U/L (N) 4 - 40 U/L Community H ealth activity/Vol] [facility] () AST [Catalytic 17 U/L (N) 10 - 34 U/L [facility] activity/Vol] [facility] (58743) Basophils (Bld) 0.04 10*3/uL (N) 0 - 0.3 10*3/uL [facility] [#/Vol] [facility] () Basophils/100 0.5 % (N) 0.5 - 1 % Community He alth WBC (Bld) [facility] () Bilirubin 0.4 mg/dL (N) 0.1 - 1.2 mg/dL [facility] Health [Mass/Vol] [facility] (25916) Calcium 9.9 mg/dL (N) 8.5 - 10.2 mg/dL [facility] Health [Mass/Vol] [facility] (62168) Chloride 103 mmol/L (N) 95 - 106 mmol/L [facility] Health [Moles/Vol] [facility] (33802) Cholesterol 232 mg/dL (H) 180 - 200 mg/dL [facility] Health [Mass/Vol] [facility] (98021) Cholesterol in 51 mg/dL (N) [facility] [Mass/Vol] [facility] (58145) Cholesterol in 155 mg/dL (H) 0 - 100 mg/dL [facility] Health LDL [Mass/Vol] [facility] (17770) Cholesterol non 181 mg/dL (H) [facility] th HDL [Mass/Vol] [facility] (00354) Cholesterol.tota 4.5 {ratio} (N) Community Hea lth l/Cholesterol in [facility] HDL [Mass ratio] [facility] (35057) CO2 [Moles/Vol] 25 mmol/L (N) 23 - 29 mmol/L [facility] (11716) Creatinine 1.32 mg/dL (H) [facility] h [Mass/Vol] [facility] (19766) Eosinophils 0.111 10*3/uL (N) 0.05 - 0.5 [facility] alth (Bld) [#/Vol] 10*3/uL [facility] (21460) Eosinophils/100 1.4 % (N) 1 - 4 % [facility] WBC (Bld) [facility] (44719) Erythrocyte 13.9 % (N) 11.6 - 14.6 % [facility] ealth distribution [facility] width (RBC) [facility] [Ratio] (09533) ESR (Bld) 6 mm/h (N) [facility] [Velocity] [facility] (05087) GFR/1.73 sq M 47 (L) 90 - 120 [facility] alth predicted among mL/min/{1.73_m2} mL/min/{1.73_m2} Center o f [facility] MDRD [facility] (S/P/Bld) [Vol (92257) rate/Area] GFR/1.73 sq 40 (L) 90 - 120 [facility] M.predicted MDRD mL/min/{1.73_m2} mL/min/{1.73_m2} [facility] (S/P/Bld) [Vol [facility] rate/Area] (42182) Globulin (S) 2.3 g/dL (N) 2 - 3.5 g/dL [facility] [Mass/Vol] [facility] (91338) Glucose 122 mg/dL (H) 60 - 125 mg/dL [facility] [Mass/Vol] [facility] (55379) HbA1c (Bld) 6.0 (H) [facility] [Mass fraction] [facility] (56961) Hematocrit (Bld) 38.1 % (N) 36.1 - 50.3 % [facility] [Volume [facility]] [facility] (15702) Hemoglobin (Bld) 12.1 g/dL (N) 12.1 - 17.2 g/dL [facility] [Mass/Vol] [facility] (89242) Lymphocytes 1.675 10*3/uL (N) 0.9 - 2.9 [facility] He alth (Bld) [#/Vol] 10*3/uL [facility] (34547) Lymphocytes/100 21.2 % (N) 20 - 40 % [facility] WBC (Bld) [facility] (89447) MCH (RBC) 27.3 pg (N) 27 - 31 pg [facility] th [Entitic mass] [facility] (68540) MCHC (RBC) 31.8 g/dL (L) 32 - 36 g/dL [facility] He alth [Mass/Vol] [facility] (78303) MCV (RBC) 86.0 fL (N) 80 - 100 fL [facility] lth [Entitic vol] [facility] (38210) Monocytes (Bld) 0.561 10*3/uL (N) 0.3 - 0.9 [facility] Health [#/Vol] 10*3/uL [facility] (52541) Monocytes/100 7.1 % (N) 2 - 8 % [facility] alth WBC (Bld) [facility] (16601) Neutrophils 5.514 10*3/uL (N) 1.7 - 7 10*3/uL [facility] (Bld) [#/Vol] [facility] (24388) Neutrophils/100 69.8 % (N) 40 - 60 % [facility] WBC (Bld) [facility] (33829) Nuclear Ab IF Ql Negative (N) [facility] lth (S) [facility] (33939) Platelet mean 12.9 fL (H) 7.2 - 11.7 fL [facility] Health volume (Bld) [facility] [Entitic vol] [facility] (63203) Platelets (Bld) 184 10*3/uL (N) 150 - 450 [facility] [#/Vol] 10*3/uL [facility] (88934) Potassium 4.5 mmol/L (N) 3.7 - 5.2 mmol/L [facility] [Moles/Vol] [facility] (10631) Protein 6.7 g/dL (N) 6.4 - 8.3 g/dL [facility] [Mass/Vol] [facility] (90631) RBC (Bld) 4.43 10*6/uL (N) 4.2 - 6.1 Community He[facility]th [#/Vol] 10*6/uL [facility] (34725) Rheumatoid [IU]/mL (N) 0 - 15 [IU]/mL [facility] Health factor Qn [facility] (70095) Sodium 139 mmol/L (N) 135 - 145 mmol/L [facility] [Moles/Vol] [facility] (95208) Triglyceride 137 mg/dL (N) 0 - 150 mg/dL [facility] [Mass/Vol] [facility] (77819) Urate [Mass/Vol] 5.9 mg/dL (N) 3.5 - 7.2 mg/dL [facility] (91450) Urea nitrogen 33 mg/dL (H) 7 - 20 mg/dL [facility] [Mass/Vol] [facility] (57726) Urea 25 mg/mg (H) 6 - 22 mg/mg [facility] He alth nitrogen/Creatin [facility] [Mass ratio] [facility] (38190) WBC (Bld) 7.9 10*3/uL (N) 3.5 - 10.5 [facility] Heal th [#/Vol] 10*3/uL [facility] (97536) laboratory on 2018-07-09 Bacteria SEE NOTE (A) [facility] identified [facility] (U) [facility] (70094) urinalysis on 2018-06-19 Albumin DL <= 20 34.1 mg/dL (N) 0.2 - 1.9 mg/dL [facility] mg/L (U) [facility] [Mass/Vol] [facility] (86215) Creatinine (U) 56 mg/dL (N) [facility] [Mass/Vol] [facility] (55879) other on 2018-06-19 Albumin/Globulin 1.7 (N) [facility] Hea lth [Mass ratio] [facility] (61898) Cholesterol non 158 (H) [facility] HDL [Mass/Vol] [facility] (64294) Cholesterol.tota 4.1 (N) [facility] lt l/Cholesterol in [facility] HDL [Mass ratio] [facility] (25107) Erythrocyte 14.1 % (N) 11.6 - 14.6 % Community H ealth distribution [facility] width (RBC) [facility] [Ratio] (39676) GFR/1.73 sq 48 (L) 90 - 120 [facility] M.predicted MDRD mL/min/{1.73_m2} mL/min/{1.73_m2} [facility] (S/P/Bld) [Vol [facility] rate/Area] (72691) Globulin (S) 2.4 (N) [facility] h [Mass/Vol] [facility] (94067) MCHC (RBC) 32.3 g/dL (N) 32 - 36 g/dL [facility] alth [Mass/Vol] [facility] (31754) MICROALBUMIN/CRE 609 (H) [facility] ATININE RATIO, [facility] RANDOM URINE [facility] (81959) Platelet mean 12.8 fL (H) 7.2 - 11.7 fL [facility] volume (Bld) [facility] [Entitic vol] [facility] (58695) Service comment no information (no code) [facility] (Unsp spec) [facility] [Interp] [facility] (89950) metabolic panel on 2018-06-19 Albumin 4.0 g/dL (N) 3.4 - 5.4 g/dL [facility] [Mass/Vol] [facility] (59249) ALP [Catalytic 88 U/L (N) 44 - 147 U/L [facility] activity/Vol] [facility] (42626) ALT [Catalytic 10 U/L (N) 4 - 40 U/L [facility] ealth activity/Vol] [facility] (31226) AST [Catalytic 13 U/L (N) 10 - 34 U/L [facility] Health activity/Vol] [facility] (15076) Bilirubin 0.6 mg/dL (N) 0.1 - 1.2 mg/dL [facility] Health [Mass/Vol] [facility] (44663) Calcium 9.9 mg/dL (N) 8.5 - 10.2 mg/dL [facility] [Mass/Vol] [facility] (78863) Chloride 102 mmol/L (N) 95 - 106 mmol/L [facility] [Moles/Vol] [facility] (02452) CO2 [Moles/Vol] 29 mmol/L (N) 23 - 29 mmol/L [facility] (50135) Creatinine 1.15 mg/dL (H) [facility] [Mass/Vol] [facility] (03472) GFR/1.73 sq M 55 (L) 90 - 120 Community He alth predicted among mL/min/{1.73_m2} mL/min/{1.73_m2} [place] MDRD [facility] (S/P/Bld) [Vol ([id number]) rate/Area] Glucose 159 mg/dL (H) 60 - 125 mg/dL [facility] [Mass/Vol] [facility] ([id number]) HbA1c (Bld) 7.2 (H) [facility] h [Mass fraction] [facility] ([id number]) Potassium 4.8 mmol/L (N) 3.7 - 5.2 mmol/L [facility] [Moles/Vol] [facility] ([id number]) Protein 6.4 g/dL (N) 6.4 - 8.3 g/dL [facility] [Mass/Vol] [facility] (37125) Sodium 138 mmol/L (N) 135 - 145 mmol/L [facility] [Moles/Vol] [facility] ([id number]) Urea nitrogen 26 mg/dL (H) 7 - 20 mg/dL [facility] [Mass/Vol] [facility] (84605) Urea 23 mg/mg (H) 6 - 22 mg/mg [facility] nitrogen/Creatin [facility] [Mass ratio] [facility] (08456) hematology on 2018-06-19 Band form 0.515 10*3/uL (N) 0 - 0.75 10*3/uL [facility] neutrophils [facility] (Bld) [#/Vol] [facility] ([id number]) Band form 5.2 % (N) 0 - 3 % [facility] neutrophils/100 [facility] WBC (Bld) [facility] (38182) Basophils (Bld) 0 10*3/uL (N) 0 - 0.3 10*3/uL [facility] [#/Vol] [facility] (39926) Basophils/100 0 % (N) 0.5 - 1 % [facility] alth WBC (Bld) [facility] ([id number]) Eosinophils 0.099 10*3/uL (N) 0.05 - 0.5 [facility] He alth (Bld) [#/Vol] 10*3/uL [facility] (32585) Eosinophils/100 1.0 % (N) 1 - 4 % [facility] WBC (Bld) [facility] (17438) Hematocrit (Bld) 38.7 % (N) 36.1 - 50.3 % [facility] [[facility] fraction] [facility] (54341) Hemoglobin (Bld) 12.5 g/dL (N) 12.1 - 17.2 g/dL [facility] [Mass/Vol] [facility] (14167) Lymphocytes 1.861 10*3/uL (N) 0.9 - 2.9 [facility] (Bld) [#/Vol] 10*3/uL [facility] (21569) Lymphocytes/100 18.8 % (N) 20 - 40 % [facility] WBC (Bld) [facility] (73032) MCH (RBC) 27.2 pg (N) 27 - 31 pg [facility] th [Entitic mass] [facility] (62682) MCV (RBC) 84.3 fL (N) 80 - 100 fL [facility] Hea lth [Entitic vol] [facility] (21861) Monocytes (Bld) 0.822 10*3/uL (N) 0.3 - 0.9 [facility] [#/Vol] 10*3/uL [facility] (17290) Monocytes/100 8.3 % (N) 2 - 8 % [facility] WBC (Bld) [facility] (09917) Neutrophils 6.603 10*3/uL (N) 1.7 - 7 10*3/uL [facility] (Bld) [#/Vol] [facility] (26842) Neutrophils/100 66.7 % (N) 40 - 60 % [facility] WBC (Bld) [facility] (95645) Platelets (Bld) 189 10*3/uL (N) 150 - 450 [facility] [#/Vol] 10*3/uL [facility] (72646) Platelets LM Ql ADEQUATE (N) [facility] (Bld) [facility] (29873) RBC (Bld) 4.59 10*6/uL (N) 4.2 - 6.1 [facility] He lth [#/Vol] 10*6/uL [facility] (15675) WBC (Bld) 9.9 10*3/uL (N) 3.5 - 10.5 [facility] [#/Vol] 10*3/uL [facility] (04456) cardiac on 2018-06-19 Cholesterol 209 mg/dL (H) 180 - 200 mg/dL [facility] [Mass/Vol] [facility] (79935) Cholesterol in 51 mg/dL (N) [facility] HDL [Mass/Vol] [facility] (88542) Cholesterol in 135 (H) [facility] LDL [Mass/Vol] [facility] (21925) Triglyceride 124 mg/dL (N) 0 - 150 mg/dL [facility] [Mass/Vol] [facility] (99248) urinalysis on 2018-06-08 Bacteria SEE NOTE (A) [facility] (U) [facility] ([id number]) other on 2018-06-08 [place] small (no code) [facility] (68002) DIONICIO neg~large (no code) [facility] ([id number]) Lot # [id number] (no code) [facility] ([id number]) Odor 10-15-2018~neg~neg (no code) [facility] Hea lth ~neg [facility] (59627) SG 8.5~30 (no code) [facility] (89419) URO 8.5~30~0.2 (no code) [facility] (13679) metabolic panel on 2018-06-08 Glucose 1.015 mg/dL (no code) 60 - 125 mg/dL [facility] [Mass/Vol] [facility] (36462) Vital Signs The data below is from unstructured sources Vital Response Date/Time Temperature (Fahrenheit) 98.4 degree s F (97.6 - 99.5) 2017 10:00am Temperature (Calculated Celsius) 36. 98583 degrees C (36.4 - 37.5) 2017 10:00am Temperature Source Temporal 2017 10:00am Pulse Rate (adult) 72 bpm (60 - 90) 2017 10:00am Respiratory Rate 18 bpm (12 - 24) 2017 10:00am O2 Sat by Pulse Oximetry 96 % (88 - 100) 2017 10:00am Blood Pressure 139/63 mm Hg 2017 10:00am Blood Pressure Mean 95 mm Hg (65 - 110) 2017 6:30am Pain Numeric Pain Scale 0-No Pain 2017 10:00am Pain Intensity 0 2017 10:00am Height (Feet) 5 feet 08/2017 3:28pm Height (Inches) 2.00 inches 04/20/2017 3:28pm Height (Calculated Centimeters) 157. 264571 cm 04/20/2017 3:28pm Weight (Pounds) 208 pounds 04/20/2017 3:28pm Weight (Ounces) 0.0 oz 0 04/20/2017 3:28pm Weight (Calculated Grams) 86616.21 gm 04/20/2017 3:28pm Weight (Calculated Kilograms) 94.347 214 kilograms 04/20/2017 3:28pm Calculated BMI 38.0 08/2017 3:28pm Vital Response Date/Time Temperature (Fahrenheit) 98.4 degree s F (97.6 - 99.5) 2017 10:00am Temperature (Calculated Celsius) 36. 22428 degrees C (36.4 - 37.5) 2017 10:00am Temperature Source Temporal 2017 10:00am Pulse Rate (adult) 72 bpm (60 - 90) 2017 10:00am Respiratory Rate 18 bpm (12 - 24) 2017 10:00am O2 Sat by Pulse Oximetry 96 % (88 - 100) 2017 10:00am Blood Pressure 139/63 mm Hg 2017 10:00am Blood Pressure Mean 95 mm Hg (65 - 110) 2017 6:30am Pain Numeric Pain Scale 0-No Pain 2017 10:00am Pain Intensity 0 2017 10:00am Height (Feet) 5 feet 6:30am Height (Inches) 2.00 inches 2017 6:30am Height (Calculated Centimeters) 157. 949405 cm 2017 6:30am Weight (Pounds) 208 pounds 2017 6:30am Weight (Ounces) 0.0 oz 0 2017 6:30am Weight (Calculated Grams) 74065.21 gm 2017 6:30am Weight (Calculated Kilograms) 94.347 214 kilograms 2017 6:30am Calculated BMI 38.0 03/18 6:30am Interventions No Information Plan of Treatment The data below is from unstructured sources Discharge Date 04/13/17 10:21am Instructions/Education Provided CAREY COOK INSTRUCTIONS POSTOP DR. MARTÍNEZ-W Prescriptions See Medication Section Goals No Information Social History No Information Functional Status The data below is from unstructured sourcesNo functional status information available.No functional status information available.No functional status information available. Mental Status No Information Encounters Encounter Normalized Encounter Encounter Diagnosis Care Provi elza Organization Date Type 01-22-2019 [facility] Immunization not AMAURY GUGN ANI (no [facility] carried out because of phone) (no phone) patient refusal 10-20-2018 CAMILOHannah [facility] Essential (primary) AMAURY G UGNANI (no [facility] hypertension phone) (no phone) 10-05-2018 CAMILOHannah [facility] Pain in joints of AMAURY GUG TAYLOR (no [facility] right hand phone) (no phone) 06-19-2018 [facility] Type 2 diabetes AMAURY GUGNA NI (no [facility] mellitus with diabetic phone) (no phone) chronic kidney disease 05-09-2018 CAMILOHannah [facility] Pain in right leg AMAURY GUG TAYLOR (no [facility] phone) (no phone) 03-22-2018 WENCESLAOHannah [facility] Other fatigue AMAURY GUGNANI (no [facility] phone) (no phone) 03-22-2018 [facility] Pain in right leg AMAURY GUG TAYLOR (no [facility] phone) (no phone) 07-09-2018 [facility] Acute cystitis with TYLOR JOENS (no [facility] IN CARE hematuria phone) IN CARE (no abraham ne) 06-08-2018 [facility] Acute cystitis with RYNE ISAAC LL (no phone) WENCESLAOHannah [facility] IN [facility] hematuria IN CARE (no phone) 04-15-2018 [facility] Acute nasopharyngitis TYLOR RUIZ (no [facility] [common cold] phone) IN CARE (no abraham ne) 02-27-2018 [facility] [place] no information Doctor Migrati on (no [facility] [place] phone) (no phone) 02-26-2018 [facility] [place] no information Doctor Migrati on (no [facility] phone) (no phone) 02-25-2018 [facility] [place] no information Doctor Migrati on (no [facility] [place] phone) (no phone) 02-20-2018 [facility] [place] no information Doctor Migrati on (no [facility] [place] [facility] phone) (no phone[facility] 02-17-2018 [facility] [place] no information Doctor Migrati on (no [facility] phone) (no phone) 02-03-2018 [facility] [place] no information Doctor Migrati on (no [facility] [place] phone) (no phone[facility] 02-01-2018 [facility] [place] no information Doctor Migrati on (no [facility] [place] [facility] phone) (no phone[facility] 01-16-2018 [facility] [place] no information Doctor Migrati on (no [facility] phone) (no phone) 01-12-2018 [facility] [place] no information Doctor Migrati on (no [facility] phone) (no phone) 01-11-2018 [facility] [place] no information Doctor Migrati on ([facility] phone) (no phone) 12-27-2017 [facility] [place] no information Doctor Migrati on (no [facility] phone) (no phone) 08-09-2017 Patient encounter no information no name no or ganization name NEGATED Patient encounter no information no name no or ganization name 05-09-2017 04-26-2017 Patient encounter no information no name no or ganization name - 04-26-2017 2017 Patient encounter no information no name no or ganization name - 2017 04-06-2017 Patient encounter no information no name no or ganization name 07-31-2019 Patient encounter no information AMAURY K GUGNANI ( no [facility] phone[facility] (no phone) 04-23-2019 Patient encounter no information AMAURY K GUGNANI ( no [facility] phone) [facility] (no phone) 04-02-2019 Patient encounter no information AMAURY K GUGNANI ( no [facility] procedure phone) [facility] (no phone) 01-22-2019 Patient encounter no information no name no or ganization name procedure 11-29-2018 Patient encounter no information no name no or ganization name procedure 10-05-2018 Patient encounter no information no name no or ganization name procedure 10-05-2018 Patient encounter no information no name no or ganization name procedure 10-05-2018 Patient encounter no information no name no or ganization name procedure 08-01-2018 Patient encounter no information no name no or ganization name procedure 08-01-2018 Patient encounter no information no name no or ganization name procedure 07-09-2018 Patient encounter no information no name no or ganization name procedure 07-09-2018 Patient encounter no information no name no or ganization name procedure 07-09-2018 Patient encounter no information no name no or ganization name procedure 06-19-2018 Patient encounter no information no name no or ganization name procedure 06-08-2018 Patient encounter no information no name no or ganization name procedure 05-09-2018 Patient encounter no information no name no or ganization name procedure 04-15-2018 Patient encounter no information no name no or ganization name procedure 03-22-2018 Patient encounter no information no name no or ganization name procedure 12-23-2017 Patient encounter no information no name no or ganization name procedure 12-01-2017 Patient encounter no information no name no or ganization name procedure 11-10-2017 Patient encounter no information no name no or ganization name procedure 08-09-2017 Patient encounter no information no name no or ganization name procedure 07-25-2017 Patient encounter no information no name no or ganization name procedure 05-09-2017 Patient encounter no information no name no or ganization name procedure 04-20-2017 Patient encounter no information no name no or ganization name procedure 04-20-2017 Patient encounter no information no name no or ganization name - procedure 04-20-2017 10-15-2016 Patient encounter no information no name no or ganization name procedure 10-06-2016 Patient encounter no information no name no or ganization name procedure 09-29-2016 Patient encounter no information no name no or ganization name procedure 09-29-2016 Patient encounter no information no name no or ganization name procedure 03-19-2016 Patient encounter no information no name no or ganization name procedure 03-19-2016 Patient encounter no information no name no or ganization name procedure 10-09-2015 Patient encounter no information no name no or ganization name procedure 07-08-2015 Patient encounter no information no name no or ganization name procedure 06-24-2015 Patient encounter no information no name no or ganization name - procedure 06-24-2015 06-24-2015 Patient encounter no information no name no or ganization name - procedure 06-24-2015 06-23-2015 Patient encounter no information no name no or ganization name procedure 06-23-2015 Patient encounter no information no name no or ganization name procedure 06-16-2015 Patient encounter no information no name no or ganization name - procedure 06-16-2015 06-12-2015 Patient encounter no information no name no or ganization name - procedure 06-12-2015 06-11-2015 Patient encounter no information no name no or ganization name procedure 02-26-2019 Telephone encounter no information AMAURY GUGNANI ( no [employer] [facility] phone) (no phone) 12-11-2018 Telephone encounter no information AMAURY GUGNANI ( no [employer] [facility] phone) (no phone) 11-16-2018 Telephone encounter no information AMAURY GUGNANI ( no [employer] [facility] phone) (no phone) 08-01-2018 Telephone encounter no information AMAURY GUGNANI ( no [employer] MAIN phone) (no phone) 07-12-2018 Telephone encounter no information AMAURY GUGNANI ( no [employer] MAIN phone) (no phone) 06-14-2018 Telephone encounter Type 2 diabetes AMAURY GUGNANI (no [facility] mellitus with diabetic phone) (no phone) chronic kidney disease 05-09-2018 Telephone encounter no information AMAURY GUGNANI ( no [employer] [facility] phone) (no phone) 04-05-2018 Telephone encounter no information AMAURY GUGNANI ( no [employer] MAIN phone) (no phone) 03-22-2018 Telephone encounter no information AMAURY GUGNANI ( no [employer] [facility] phone) (no phone) 03-21-2018 Telephone encounter Pain in leg, AMAURY GUGNANI (no [employer] MAIN unspecified phone) (no phone) 02-12-2018 Telephone encounter no information Doctor Migration ([facility] phone) (no phone) no information Encounter for other no name no organiz ation name preprocedural examination Medical Equipment No Information Payers No Information History general Narrative - Reported Note Type Note Facility History general Narrative - Reported Type Medical Coronary arteriosclerosis History Medical Abdominal hernia History Medical Adhesive capsulitis of unsp ecified shoulder History Medical CKD (chronic kidney disease ) stage 3, GFR 30-59 ml/min History Medical GERD (gastroesophageal refl ux disease) History Medical Hypertriglyceridemia History Medical Severe obesity (BMI >= 40) History Medical Stable angina History Medical Type 2 diabetes mellitus History Medical Polyp of cecum History Surgical Colonoscopy 02/2016 History Surgical Colorectal Polyp Removal 02/2018 History Surgical colorectal surery menorah 02/2018 History Surgical hernia repair with mesh History Hospitaliz see surgeries ation History [facility] ([id number]) Advance Directives Directive Response Recor ded Date/Time Advance Directives No 6:30am Health Care Power of Call Or Contact Centre Operator No 04/13/17 6:30am Organ Donor No 04/13/17 6:30am Directive Response Recor ded Date/Time Advance Directives No 6:30am Health Care Power of Call Or Contact Centre Operator No 04/13/17 6:30am Organ Donor No 04/13/17 6:30am Resuscitation Status Full Code 04/13/17 6:30am Discharge Instructions No hospital discharge instruction information available. Additional Source Comments This clinical document has been generated using [employer] software that has been certified by the Office of the National Coordinator for Health Information Technology (ONC 15.99.04.3023.Diam.31.00.0.445930) and the National Committee for [employer] (NCQA, as an eMeasure certified technology). FOR RECORDS PERTAINING TO PATIENTS WHO ARE OR HAVE BEEN ENROLLED IN A CHEMICAL D EPENDENCY/SUBSTANCE ABUSE PROGRAM, SOME INFORMATION MAY BE OMITTED. This clinica l summary was aggregated from multiple sources. Caution should be exercised in using it in the provision of clinical care. This summary normalizes information from multiple sources, and as a consequence, information in this document may ma terially change the coding, format and clinical context of patient data. In shruthi tion, data may be omitted in some cases. CLINICAL DECISIONS SHOULD BE BASED ON T HE PRIMARY CLINICAL RECORDS. [employer] provides no warranty or guara ntee of the accuracy or completeness of information in this document.The followi ng information is based on time limited clinical information UNRECOGNIZED CONTENT PROVIDED BELOW FOR UNRECOGNIZED SECTION REASON FOR VISIT med refill
--- OUTSIDE RECORDS SUMMARY | 2019-08-12 19:00 | XMS REPORT | Clinical Summary ---
Author Author [facility] Organization [facility] Address Unknown Phone Unavailable Care Team Providers Care Assurance Officer Name Role Phone AndersonJohan shirley PCP Allergies Comments Active Allergy Reactions Severity Noted Date Rosuvastatin Muscle 05/05/2016 aches/pain Knocks her out Diphenhydramine-Acetamino 05/05/2016 phen Glyburide Rash Low 05/05/2016 Levofloxacin Rash Low 05/05/2016 Atorvastatin Muscle 05/05/2016 aches/pain Medications End Date Status Medication Sig Dispensed Refills Start Date Active carvedilol (COREG) 3.125 Take 3.125 mg 6 03/12 MG tablet by mouth 2 7 (two) times a day. Active metoclopramide (REGLAN) Take 10 mg by 0 10 MG tablet mouth 4 7 (four) times a day. Active pantoprazole (PROTONIX) Take 40 mg by 6 40 MG tablet mouth daily. 7 Active fenofibrate (TRICOR) 145 Take 145 mg 0 MG tablet by mouth daily. Active nitroglycerin (NITROSTAT) Dissolve 0.4 0 0.4 MG SL tablet mg under the tongue every 5 (five) minutes as needed for chest pain. May repeat for a total of 3 doses. Active metformin (GLUCOPHAGE) Take 1,000 mg 0 1000 mg tablet by mouth 2 (two) times a day with meals. Active clopidogrel (PLAVIX) 75 Take 75 mg by 0 mg tablet mouth daily. Active multivitamin with Take 1 tablet 0 minerals (THERAGRAN M) by mouth tablet daily. Active docusate sodium (COLACE) Take 100 mg 0 100 MG capsule by mouth 2 (two) times a day. Active glipiZIDE (GLUCOTROL) 10 Take 10 mg by 0 MG tablet mouth 2 (two) times a day before breakfast and dinner. Active lisinopril Take 10 mg by 0 (PRINIVIL,ZESTRIL) 10 MG mouth daily. tablet Active omega 3 fish oil (SEA Take 1,000 mg 0 OMEGA) 500-1,000 mg by mouth capsule daily. Active Problems Problem Noted Date Type 2 diabetes mellitus without complication, withou t long-term current 05/05/2016 use of insulin Essential hypertension 05/05/2016 Recurrent incisional hernia with incarceration 05/05 Hyperlipidemia 05/05/2016 Gastroesophageal reflux disease 05/05/2016 Social History Date Tobacco Use Types Packs/Day [...] Pressure 76 05/19/2016 10:56 AM CDT Pulse 36.3 C (97.3 F) 05/05/2016 10:31 AM CDT Temperature 20 05/05/2016 10:31 AM CDT Respiratory Rate - - Oxygen Saturation - - Inhaled Oxygen Concentration 85.7 kg (189 lb) 05/19/2016 10:56 AM CDT Weight 157.5 cm (5' 2") 05/19/2016 10:56 AM CDT Height 34.57 05/19/2016 10:56 AM CDT Body Mass Index Plan of Treatment Health Maintenance Due Date Last Done Comments Td # 1945 Zoster Vaccine# (1 of 2) 1997 Fall Risk Assessment # 2012 Osteoporosis Screening 2012 Influenza Vaccine (Season 12/16/2019 Ended) Results Not on filefrom Last 3 Months Insurance Type Payer Benefit Subscriber ID Effective Phone Address Plan / Dates Group Medicare MEDICARE MEDICARE xxxxxxxxxx [id number] [place] PART A B resent [facility], [place] COMMERCIAL-NONCONTRACTED AARP xxxxxxxxxxx [id number] MEDICARE resent SUPPLEMENT [id number] 1 Zenobia Beltran Personal/F Self [phone] am[address] (Home) [place] [id number] 1 Zenobia Beltran Personal/F Self [phone] amily (Home) [place], [place] [address] Advance Directives For more information, please contact: [phone] Patient Billet Straightener Explanation Type Date Recorded Advance Directives and Living Will Power of Employee Communications Intern
--- OUTSIDE RECORDS SUMMARY | 2019-08-12 19:00 | XMS REPORT | Encounter Summary ---
Author Author [facility] Organization [facility] Address Unknown Phone Unavailable Care Team Providers Care Foundry Laborer Coreroom Name Role Phone FestusVasyl alcazarj PCP Encounter Details Care Team Description Date Type Department Melly Khalil RN [address] [facility] [address] [place] [address] 05/27/2016 [facility] [address] [facility] [address] [place] [address] Social History Date Tobacco Use Types Packs/Day Years Used Never Smoker Smokeless Tobacco: Never Used Drinks/Week oz/Week Comments Alcohol Use No Sex Assigned at Date Recorded Not on file Industry Job Start Date Occupation Not on file Not on file Not on file Travel End Travel History Travel Start No recent travel history available. documented as of this encounter Miscellaneous Notes * Telephone Encounter - Melly Khalil RN - 05/27/2016 10:48 AM CDT LMTCB regarding name of professor of marketing for clearance for surgery. documented in this encounter Plan of Treatment Not on filedocumented as of this encounter Visit Diagnoses Not on filedocumented in this encounter
--- OUTSIDE RECORDS SUMMARY | 2019-08-12 19:00 | XMS REPORT | Encounter Summary ---
Author Author [facility] Organization [facility] Address Unknown Phone Unavailable Care Team Providers Care Architectural Drafting Instructor Name Role Phone AndersonJohan shirley PCP Encounter Details Care Team Description Date [place] [address] [place], [place] [id number] 04/20/2016 Documentation [facility] [address] [place], [place] [phone] Social History Date Tobacco Use Types Packs/Day Years Used Never Assessed Sex Assigned at Date Recorded Not on file Industry Job Start Date Occupation Not on file Not on file Not on file Travel End Travel History Travel Start No recent travel history available. documented as of this encounter Plan of Treatment Not on filedocumented as of this encounter Visit Diagnoses Not on filedocumented in this encounter
--- OUTSIDE RECORDS SUMMARY | 2019-08-12 19:00 | XMS REPORT | Encounter Summary ---
Author Author [facility] Organization [facility] Address Unknown Phone Unavailable Care Team Providers Care Transmission Assembler Name Role Phone Johan Marte PCP Encounter Details Care Team Description Date Type Department Encounter for consultation 05/03/2016 Imaging [facility] Virtual Revenu e Appointment Location Social History Date Tobacco Use Types Packs/Day Years Used Never Assessed Sex Assigned at Date Recorded Not on file Industry Job Start Date Occupation Not on file Not on file Not on file Travel End Travel History Travel Start No recent travel history available. documented as of this encounter Plan of Treatment Not on filedocumented as of this encounter Procedures Comments Procedure Name Priority Date/Time Associated Diag nosis XR ABDOMEN OUTSIDE IMAGES Routine 05/03/2016 [place] unter for FOR PACS 11:15 AM CDT consultation documented in this encounter Results * XR Outside images for PACS Abdomen (05/03/2016 11:15 AM CDT) Specimen Performing Organization Address [facility] Binh MAZARIEGOS documented in this encounter Visit Diagnoses Diagnosis Encounter for consultation documented in this encounter
--- OUTSIDE RECORDS SUMMARY | 2019-08-12 19:00 | XMS REPORT ---
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 15 Dec, 2017 Active 642682411 Problem Sprain of lumbar region S33.5XXA Active 284899764 Problem Hernia, abdominal K46.9 12 Jun, 2009 Active 881704085 Problem Adhesive capsulitis of shoulder M75.00 13 Oct, 2009 Active 417642224 Problem Status post colonoscopy with polypectomy Z98.890 15 Dec, 2017 Active 295804031 Problem Coronary arteriosclerosis I25.10 Acti ve 8059397980691 Problem Stable angina I20.8 Active 290253 07 Problem Abdominal hernia K46.9 Active 128 782167 Problem Moderate episode of recurrent major depressive disorder F33.1 Active 892722847 Problem Severe obesity (BMI 35.0-39.9) with comorbidity E66.01 Nov, Active 787299292 Problem Obesity (BMI 35.0-39.9 without comorbidity) E66.9 02 Dec, 2014 Active 194699535 Problem Primary insomnia F51.01 Active 397 2004 Problem Type 2 diabetes with stage 3 chronic kidney disease GF R 30-59 E11.22 Nov, Active 062311930 Problem Chronic superficial gastritis without bleeding K29.30 29 Dec, 2015 Active 307519970 Problem Hypertriglyceridemia E78.1 Active 947459677 Problem CKD (chronic kidney disease) stage 3, GFR 30-59 ml/min N18.3 Active 910467640480 Problem GERD with esophagitis K21.0 Active 696689479 Problem Essential (primary) hypertension I10 Active 61495333 ALLERGIES No Information ENCOUNTERS Encounter Location Date Diagnosis [facility] [place] [facility] [place] [address] [place] [address] Feb, [facility] [place] [facility] [place] [address] [place] [address] Jan, Influenza vaccine refused Z2 8.21 ; Essential (primary) hypertension I10 and Coronary arteriosclerosis I25.10 [facility] [place] [facility] [place] [address] [address] [place] [address] Nov, [address] [address] [place] [address] Nov, [facility] [place] [facility] [address] [place] [address] Nov, [facility] [place] [facility] [place] [address] [address] [address] [place] [address] Oct, Essential (primary) hyperten naldo I10 and Type 2 diabetes with stage 3 chronic kidney disease GFR 30-59 E11.22 [facility] [place] [facility] [address] [place] [address] Sep, Pain in joints of right hand M25.541 and Pain in joints of left hand M25.542 [facility] [place] [facility] [place] [address] [address] [address] [place] [address] Sep, Pain in joints of right hand M25.541 ; Pain in joints of left hand M25.542 ; Primary insomnia F51.01 ; Type 2 diabetes with stage 3 chronic kidney disease GFR 30-59 E11.22 and Moderate episode of recurrent major depressive disorder F33.1 [facility] [place] [facility] [place] [address] [place] [address] Jul, [facility] [place] [facility] [address] [place] [address] June, [facility] [place] [facility] [address] [place] [address] June, Acute cystitis with hematuri a N30.01 and Dysuria R30.[address] [place] [address] June, Type 2 diabetes with stage 3 chronic kidney disease GFR 30-59 E11.22 ; Acute cystitis with hematuria N30.01 ; Essential hypertension, benign I10 and Stable angina I20.8 [facility] [address] [facility] [place] [address] June, Type 2 diabetes with stage 3 chronic kid chantelle disease GFR 30-59 E11.22 [facility] [address] [place] [address] May, Acute cystitis with hematuri a N30.01 and Urinary pain R30.9 [address] [place] [address] Apr, Pain of right lower extremit y M79.604 ; Coronary arteriosclerosis I25.10 and Type 2 diabetes mellitus E11.[address] [place] [address] Apr, [facility] [address] [place] [address] Apr, Nasopharyngitis [address] [place] [address] Mar, [address] [place] [address] Mar, Other fatigue R53.83 ; Other malaise R53.81 ; Coronary arteriosclerosis I25.10 ; Abdominal hernia K46.9 ; CKD (chronic kidney disease) stage 3, GFR 30-59 ml/min N18.3 ; Hypertriglyceridemia E78.1 ; Type 2 diabetes mellitus E11.9 ; Right leg pain M79.604 ; GERD with esophagitis K21.0 and Essential (primary) hypertension I10 [address] [place] [address] 06 Mar, 2018 Pain of right lower extremit y M79.604 [facility] [address] [place] [address] 06 Mar, 2018 [facility] [address] [place] [address] Mar, Pain of lower extremity, uns pecified laterality M79.606 [facility] [id number] [place] [address] Feb, [facility] [id number] [place] [address] Feb, [facility] [address] [address] Feb, [facility] [id number] [place] [address] Feb, [facility] [id number] [place] [address] Feb, [facility] [id number] [place] [address] Jan, [facility] [address] [address] Jan, [facility] [id number] [place] [address] Jan, [facility] [id number] [place] [address] Jan, [facility] [id number] [place] [address] Dec, [facility] [id number] [place] [address] Dec, [facility] [id number] [place] [address] Dec, IMMUNIZATIONS No Known Immunizations SOCIAL HISTORY Never Assessed REASON FOR VISIT med refill PLAN OF CARE VITAL SIGNS MEDICATIONS Medication Instructions Dosage Frequency Start Date End Date Duration S tat Carafate 1 GM Orally Twice a day 1 tablet on an empty stomach 12h 30 day(s) Active RESULTS No Results PROCEDURES No Known procedures INSTRUCTIONS MEDICATIONS ADMINISTERED No Known Medications MEDICAL (GENERAL) HISTORY Type Description Date Medical History Coronary arteriosclerosis Medical History Abdominal hernia Medical History Adhesive capsulitis of unspecified shoul elza Medical History CKD (chronic kidney disease) stage 3, GF R 30-59 ml/min Medical History GERD (gastroesophageal reflux disease) Medical History Hypertriglyceridemia Medical History Severe obesity (BMI >= 40) Medical History Stable angina Medical History Type 2 diabetes mellitus Medical History Polyp of cecum Surgical History Colonoscopy 02/2016 Surgical History Colorectal Polyp Removal 02/2018 Surgical History colorectal surery menorah 02/2018 Surgical History hernia repair with mesh Hospitalization History see surgeries
--- OUTSIDE RECORDS SUMMARY | 2019-08-12 19:00 | XMS REPORT | Encounter Summary ---
Author Author [facility] Organization [facility] Address Unknown Phone Unavailable Care Team Providers Care Boiler Washer Name Role Phone Johan Marte PCP Encounter Details Care Team Description Date Type Department Encounter for consultation 05/03/2016 Imaging [facility] Virtual Revenu e Appointment Location Social History [...] Procedure Name Priority Date/Time Associated Diag nosis CT ABDOMEN OUTSIDE IMAGES Routine 05/03/2016 [place] unter for FOR PACS 11:14 AM CDT consultation documented in this encounter Results * CT Outside images for PACS Abdomen (05/03/2016 11:14 AM CDT) Specimen Performing Organization Address City/State/Zipcode Ph one Binh MAZARIEGOS documented in this encounter Visit Diagnoses Diagnosis Encounter for consultation documented in this encounter
--- OUTSIDE RECORDS SUMMARY | 2019-08-12 19:01 | XMS REPORT | Continuity of Care Document ---
Author Organization Unknown Address Unknown Phone Unavailable Allergies Active Description Code Type Severity Reaction Onset Reported/Identified Relationship to Patient Clinical Status Yes atorvastatin [id number] Drug Allergy Unknown muscle pain 06/12/2015 Yes diphenhydramine [id number] D rug Allergy Unknown N/A 06/12/2015 Yes glyburide [id number] Drug Allergy Unknown RASH 06/12/2015 Yes levofloxacin [id number] Drug Allergy Unknown RASH 06/12/2015 Yes rosuvastatin [id number] Drug Allergy Unknown muscle pain 06/12/2015 Yes Sulfa (Sulfonamide Antibiotics) [id number] Drug Allergy Unknown makes face red 06/12/2015 Medications There is no data. Problems Date Dx Coded Attending Type Code Diagnosis Diagnosed By 06/12/2015 GLADYS MARTÍNEZ MD Ot N20.1 CALCULUS OF URETER 06/12/2015 GLADYS MARTÍNEZ MD Ot Z01.8 18 ENCOUNTER FOR OTHER PREPROCEDURAL EXAMIN 06/12/2015 GLADYS MARTÍNEZ MD Ot N20.1 CALCULUS OF URETER 06/12/2015 GLADYS MARTÍNEZ MD Ot Z01.8 18 ENCOUNTER FOR OTHER PREPROCEDURAL EXAMIN 06/12/2015 GLADYS MARTÍNEZ MD Ot N20.1 CALCULUS OF URETER 06/12/2015 GLADYS MARTÍNEZ MD Ot Z01.8 18 ENCOUNTER FOR OTHER PREPROCEDURAL EXAMIN 06/12/2015 GLADYS MARTÍNEZ MD Ot N20.1 CALCULUS OF URETER 06/12/2015 GLADYS MARTÍNEZ MD Ot Z01.8 18 ENCOUNTER FOR OTHER PREPROCEDURAL EXAMIN 06/16/2015 GLADYS MARTÍNEZ MD Ot N20.0 CALCULUS OF KIDNEY 06/16/2015 GLADYS MARTÍNEZ MD Ot N20.1 CALCULUS OF URETER 06/16/2015 GLADYS MARTÍNEZ MD Ot N30.9 0 CYSTITIS, UNSPECIFIED WITHOUT HEMATURIA 06/16/2015 GLADYS MARTÍNEZ MD Ot Z11.2 ENCOUNTER FOR SCREENING FOR OTHER BACTER 06/17/2015 GLADYS MARTÍNEZ MD Ot N20.0 CALCULUS OF KIDNEY 06/17/2015 GLADYS MARTÍNEZ MD Ot N20.1 CALCULUS OF URETER 06/17/2015 GLADYS MARTÍNEZ MD Ot N30.9 0 CYSTITIS, UNSPECIFIED WITHOUT HEMATURIA 06/17/2015 GLADYS MARTÍNEZ MD Ot Z11.2 ENCOUNTER FOR SCREENING FOR OTHER BACTER 06/18/2015 GLADYS MARTÍNEZ MD, Ot N20.1 CALCULUS OF URETER 06/18/2015 GLADYS MARTÍNEZ MD Ot Z01.8 18 ENCOUNTER FOR OTHER PREPROCEDURAL EXAMIN 06/20/2015 GLADYS MARTÍNEZ MD Ot N20.9 URINARY CALCULUS, UNSPECIFIED 06/20/2015 GLADYS MARTÍNEZ MD Ot N20.9 URINARY CALCULUS, UNSPECIFIED 06/20/2015 GLADYS MARTÍNEZ MD Ot N20.9 URINARY CALCULUS, UNSPECIFIED 06/24/2015 GLADYS MARTÍNEZ MD Ot N20.1 CALCULUS OF URETER 06/24/2015 GLADYS MARTÍNEZ MD Ot 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 06/25/2015 GLADYS MARTÍNEZ MD Ot N20.1 CALCULUS OF URETER 06/25/2015 GLADYS MARTÍNEZ MD Ot Z98.8 9 OTHER SPECIFIED POSTPROCEDURAL STATES 06/25/2015 GLADYS MARTÍNEZ MD Ot N20.1 CALCULUS OF URETER 06/25/2015 GLADYS MARTÍNEZ MD Ot 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1 CALCULUS OF URETER 08/06/2015 GLADYS MARTÍNEZ MD Ot Z98.8 9 OTHER SPECIFIED POSTPROCEDURAL STATES 08/14/2015 MAURICIO CASTRO, GLADYS Mcfarland Ot N20.1 CALCULUS OF URETER 08/14/2015 GLADYS MARTÍNEZ MD Ot Z09 ENCNTR FOR F/U EXAM AFT TRTMT FOR COND O 03/19/2016 GLADYS MARTÍNEZ MD Ot N20.9 URINARY CALCULUS, UNSPECIFIED 03/19/2016 GLADYS MARTÍNEZ MD Ot N20.0 CALCULUS OF KIDNEY 03/19/2016 GLADYS MARTÍNEZ MD Ot N20.1 CALCULUS OF URETER 03/19/2016 GLADYS MARTÍNEZ MD Ot Z01.8 18 ENCOUNTER FOR OTHER PREPROCEDURAL EXAMIN 03/19/2016 GLADYS MARTÍNEZ MD Ot N20.1 CALCULUS OF URETER 03/19/2016 GLADYS MARTÍNEZ MD Ot Z98.8 9 OTHER SPECIFIED POSTPROCEDURAL STATES 03/19/2016 GLADYS MARTÍNEZ MD Ot N20.1 CALCULUS OF URETER 03/19/2016 GLADYS MARTÍNEZ MD Ot Z09 ENCNTR FOR F/U EXAM AFT TRTMT FOR COND O 03/22/2016 GLADYS MARTÍNEZ MD Ot K43.9 VENTRAL HERNIA WITHOUT OBSTRUCTION OR GA 03/22/2016 GLADYS MARTÍNEZ MD Ot N20.0 CALCULUS OF KIDNEY 03/22/2016 GLADYS MARTÍNEZ MD Ot K43.9 VENTRAL [...] CALCULUS OF KIDNEY 10/20/2016 MAURICIO CASTRO, GLADYS A Ot N20.0 CALCULUS OF KIDNEY 11/08/2016 MAURICIO CASTRO, GLADYS Mcfarland Ot N20.0 CALCULUS OF KIDNEY 03/31/2017 MAURICIO CASTRO, GLADYS Mcfarland Ot N20.0 CALCULUS OF KIDNEY 04/05/2017 MAURICIO CASTRO, GLADYS Mcfarland Ot N20.0 CALCULUS OF KIDNEY 04/07/2017 MAURICIO CASTRO, GLADYS Mcfarland Ot N20.0 CALCULUS OF KIDNEY 04/07/2017 MAURICIO CASTRO, GLADYS Mcfarland Ot Z01.8 18 ENCOUNTER FOR OTHER PREPROCEDURAL EXAMIN 04/07/2017 MAURICIO CASTRO, GLADYS Mcfarland Ot N20.0 CALCULUS OF KIDNEY 04/07/2017 MAURICIO CASTRO, GLADYS Mcfarland Ot Z01.8 18 ENCOUNTER FOR OTHER PREPROCEDURAL EXAMIN 2017 GLADYS MARTÍNEZ MD Ot E11.9 TYPE 2 DIABETES MELLITUS WITHOUT COMPLIC 2017 GLADYS MARTÍNEZ MD Ot F41.9 ANXIETY DISORDER, UNSPECIFIED 2017 GLADYS MARTÍNEZ MD Ot I12.9 HYPERTENSIVE CHRONIC KIDNEY DISEASE W ST 2017 GLADYS MARTÍNEZ MD Ot I25.1 0 ATHSCL HEART DISEASE OF [place] CORONARY 2017 GLADYS MARTÍNEZ MD Ot K21.9 [...] F41.9 ANXIETY DISORDER, UNSPECIFIED 04/14/2017 GLADYS MARTÍNEZ MD Ot I12.9 HYPERTENSIVE CHRONIC KIDNEY DISEASE W ST 04/14/2017 GLADYS MARTÍNEZ MD, Ot I25.1 0 ATHSCL HEART DISEASE OF [place] CORONARY 04/14/2017 GLADYS MARTÍNEZ MD, Ot K21.9 GASTRO-ESOPHAGEAL REFLUX DISEASE WITHOUT 04/14/2017 GLADYS MARTÍNEZ MD Ot N18.3 CHRONIC KIDNEY DISEASE, STAGE 3 (MODERAT 04/14/2017 GLADYS MARTÍNEZ MD, Ot N20.0 CALCULUS OF KIDNEY 04/14/2017 GLADYS MARTÍNEZ MD Ot Z11.2 ENCOUNTER FOR SCREENING FOR OTHER BACTER 04/14/2017 GLADYS MARTÍNEZ MD Ot Z95.1 PRESENCE OF AORTOCORONARY BYPASS GRAFT 04/14/2017 GLADYS MARTÍNEZ MD Ot Z95.5 PRESENCE OF CORONARY ANGIOPLASTY IMPLANT 04/19/2017 GLADYS MARTÍNEZ MD Ot N20.0 CALCULUS OF KIDNEY 04/20/2017 GLADYS MARTÍNEZ MD Ot N20.0 CALCULUS OF KIDNEY 04/20/2017 GLADYS MARTÍNEZ MD Ot Z01.8 18 ENCOUNTER FOR OTHER PREPROCEDURAL EXAMIN 04/21/2017 GLADYS MARTÍNEZ MD Ot N20.0 CALCULUS OF KIDNEY 04/21/2017 GLADYS MARTÍNEZ MD Ot Z98.8 90 OTHER SPECIFIED POSTPROCEDURAL STATES 04/21/2017 GLADYS MARTÍNEZ MD, Ot N20.0 CALCULUS OF KIDNEY 04/21/2017 GLADYS MARTÍNEZ MD Ot Z01.8 18 ENCOUNTER FOR OTHER PREPROCEDURAL EXAMIN 04/26/2017 GLADYS MARTÍNEZ MD, Ot N20.0 CALCULUS OF KIDNEY 04/26/2017 GLADYS MARTÍNEZ MD Ot Z98.8 90 OTHER SPECIFIED POSTPROCEDURAL STATES 04/26/2017 GLADYS MARTÍNEZ MD Ot E11.2 2 TYPE 2 DIABETES MELLITUS W DIABETIC [employer] 04/26/2017 GLADYS MARTÍNEZ MD Ot F41.9 ANXIETY DISORDER, UNSPECIFIED 04/26/2017 GLADYS MARTÍNEZ MD Ot I12.9 HYPERTENSIVE CHRONIC KIDNEY DISEASE W ST 04/26/2017 GLADYS MARTÍNEZ MD Ot I25.1 0 ATHSCL HEART DISEASE OF [place] CORONARY 04/26/2017 GLADYS MARTÍNEZ MD Ot K21.9 GASTRO-ESOPHAGEAL REFLUX DISEASE WITHOUT 04/26/2017 GLADYS MARTÍNEZ MD Ot N18.3 CHRONIC KIDNEY DISEASE, STAGE 3 (MODERAT 04/26/2017 GLADYS MARTÍNEZ MD Ot N20.2 CALCULUS OF KIDNEY WITH CALCULUS OF URET 04/26/2017 GLADYS MARTÍNEZ MD Ot Z79.8 4 SHELTER (CURRENT) USE OF ORAL HYPOGLYC 04/26/2017 GLADYS MARTÍNEZ MD Ot 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 04/26/2017 GLADYS MARTÍNEZ MD Ot Z95.1 PRESENCE OF AORTOCORONARY BYPASS GRAFT 04/27/2017 GLADYS MARTÍNEZ MD Ot E11.2 2 TYPE 2 DIABETES MELLITUS W DIABETIC [employer] PRO[employer] 04/27/2017 GLADYS MARTÍNEZ MD, Ot F41.9 ANXIETY DISORDER, UNSPECIFIED 04/27/2017 GLADYS MARTÍNEZ MD, Ot I12.9 HYPERTENSIVE CHRONIC KIDNEY DISEASE W ST 04/27/2017 GLADYS MARTÍNEZ MD Ot I25.1 0 ATHSCL HEART DISEASE OF [place] CORONARY 04/27/2017 GLADYS MARTÍNEZ MD Ot K21.9 GASTRO-ESOPHAGEAL REFLUX DISEASE WITHOUT 04/27/2017 GLADYS MARTÍNEZ MD Ot N18.3 CHRONIC KIDNEY DISEASE, STAGE 3 (MODERAT 04/27/2017 GLADYS MARTÍNEZ MD Ot N20.2 CALCULUS OF KIDNEY WITH CALCULUS OF URET 04/27/2017 GLADYS MARTÍNEZ MD Ot Z79.8 4 SHELTER (CURRENT) USE OF ORAL HYPOGLYC 04/27/2017 GLADYS MARTÍNEZ MD Ot Z79.8 99 OTHER SHELTER (CURRENT) DRUG THERAPY 04/27/2017 GLADYS MARTÍNEZ MD Ot Z95.1 PRESENCE OF AORTOCORONARY BYPASS GRAFT 05/10/2017 MAURICIO CASTRO, GLADYS Mcfarland Ot N20.0 CALCULUS OF KIDNEY 05/10/2017 MAURICIO CASTRO, GLADYS Mcfarland Ot Z98.8 90 OTHER SPECIFIED POSTPROCEDURAL STATES 05/11/2017 MAURICIO CASTRO, GLADYS Mcfarland Ot N20.0 CALCULUS OF KIDNEY 05/11/2017 MAURICIO CASTRO, GLADYS Mcfarland Ot Z98.8 90 OTHER SPECIFIED POSTPROCEDURAL STATES 06/03/2017 MAURICIO CASTRO, GLADYS A Ot N20.0 CALCULUS OF KIDNEY 06/03/2017 MAURICIO CASTRO, GLADYS Mcfarland Ot Z98.8 90 OTHER SPECIFIED POSTPROCEDURAL STATES 08/10/2017 MAURICIO CASTRO, GLADYS Mcfarland Ot N20.0 CALCULUS OF KIDNEY 08/30/2017 MAURICIO CASTRO, GLADYS Mcfarland Ot N20.0 CALCULUS OF KIDNEY 11/17/2017 MAURICIO CASTRO, GLADYS Mcfarland Ot N20.0 CALCULUS OF KIDNEY 01/27/2018 MAURICIO CASTRO, GLADYS Mcfarland Ot N20.9 URINARY CALCULUS, UNSPECIFIED 01/27/2018 MAURICIO CASTRO, GLADYS Mcfarland Ot N20.0 CALCULUS OF KIDNEY 01/27/2018 MAURICIO CASTRO, GLADYS Mcfarland Ot N20.1 CALCULUS OF URETER 01/27/2018 MAURICIO CASTRO, GLADYS Mcfarland Ot Z01.8 18 ENCOUNTER FOR OTHER PREPROCEDURAL EXAMIN 01/27/2018 GLADYS MARTÍNEZ MD Ot N20.1 CALCULUS OF URETER 01/27/2018 MAURICIO CASTRO, GLADYS Mcfarland Ot Z98.8 9 OTHER SPECIFIED POSTPROCEDURAL STATES 01/27/2018 MAURICIO CASTRO, GLADYS Mcfarland Ot N20.1 CALCULUS OF URETER 01/27/2018 GLADYS MARTÍNEZ MD Ot Z09 ENCNTR FOR F/U EXAM AFT TRTMT FOR COND O 01/27/2018 GLADYS MARTÍNEZ MD Ot K43.9 VENTRAL HERNIA WITHOUT OBSTRUCTION OR GA 01/27/2018 MAURICIO CASTRO, GLADYS Mcfarland Ot N20.0 CALCULUS OF KIDNEY 01/27/2018 MAURICIO CASTRO, GLADYS Mcfarland Ot N20.0 CALCULUS OF KIDNEY 01/27/2018 MAURICIO CASTRO, GLADYS Mcfarland Ot N20.0 CALCULUS OF KIDNEY 01/27/2018 MAURICIO CASTRO, GLADYS Mcfarland Ot N20.0 CALCULUS OF KIDNEY 01/27/2018 MAURICIO CASTRO, GLADYS Mcfarland Ot Z98.8 90 OTHER SPECIFIED POSTPROCEDURAL STATES 01/27/2018 MAURICIO CASTRO, GLADYS Mcfarland Ot N20.0 CALCULUS OF KIDNEY 01/27/2018 MAURICIO CASTRO, GLADYS Mcfarland Ot Z98.8 90 OTHER SPECIFIED POSTPROCEDURAL STATES 01/27/2018 MAURICIO CASTRO, GLADYS Mcfarland Ot N20.0 CALCULUS OF KIDNEY 07/28/2018 MAURICIO CASTRO, GLADYS Mcfarland Ot N20.0 CALCULUS OF KIDNEY 07/28/2018 MAURICIO CASTRO, GLADYS Mcfarland Ot N20.1 CALCULUS OF URETER 07/28/2018 MAURICIO CASTRO, GLADYS Mcfarland Ot Z01.8 18 ENCOUNTER FOR OTHER PREPROCEDURAL EXAMIN 07/28/2018 GLADYS MARTÍNEZ MD Ot N20.1 CALCULUS OF URETER 07/28/2018 GLADYS MARTÍNEZ MD Ot Z98.8 9 OTHER SPECIFIED POSTPROCEDURAL STATES 07/28/2018 GLADYS MARTÍNEZ MD Ot N20.1 CALCULUS OF URETER 07/28/2018 GLADYS MARTÍNEZ MD Ot Z09 ENCNTR FOR F/U EXAM AFT TRTMT FOR COND O 07/28/2018 GLADYS MARTÍNEZ MD Ot K43.9 VENTRAL HERNIA WITHOUT OBSTRUCTION OR GA 07/28/2018 GLADYS MARTÍNEZ MD Ot N20.0 CALCULUS OF KIDNEY 07/28/2018 MAURICIO CASTRO, GLADYS Mcfarland Ot N20.0 CALCULUS OF KIDNEY 07/28/2018 GLADYS MARTÍNEZ MD Ot N20.0 CALCULUS OF KIDNEY 07/28/2018 MAURICIO CASTRO, GLADYS Mcfarland Ot N20.0 CALCULUS OF KIDNEY 07/28/2018 GLADYS MARTÍNEZ MD Ot Z98.8 90 OTHER SPECIFIED POSTPROCEDURAL STATES 07/28/2018 GLADYS MARTÍNEZ MD Ot N20.0 CALCULUS OF KIDNEY 07/28/2018 GLADYS MARTÍNEZ MD Ot Z98.8 90 OTHER SPECIFIED POSTPROCEDURAL STATES 07/28/2018 GLADYS MARTÍNEZ MD Ot N20.0 CALCULUS OF KIDNEY 08/02/2018 MAURICIO CASTRO, GLADYS Bruna Ot N20.0 CALCULUS OF KIDNEY 08/02/2018 MAURICIO CASTRO, GLADYS Mcfarland Ot N39.0 URINARY TRACT INFECTION, SITE NOT SPECIF 08/23/2018 GLADYS MARTÍNEZ MD Ot N20.0 CALCULUS OF KIDNEY 08/23/2018 GLADYS MARTÍNEZ MD Ot N39.0 URINARY TRACT INFECTION, SITE NOT SPECIF Procedures There is no data. Results Test Result Range Methicillin resistant Staphylococcus aur eus (MRSA) screening culture - 04/13/17 06:15 Methicillin resistant Staphylococcus aureus (MRSA) scr eening culture NEG NRG Capillary blood glucose measurement by g lucometer (mass/volume) - 04/13/17 06:35 Capillary blood glucose measurement by glucometer (mas s/volume) 126 mg/dL 70-110 Capillary blood glucose measurement by g lucometer (mass/volume) - 04/26/17 07:24 Capillary blood glucose measurement by glucometer (mas s/volume) 171 mg/dL 70-110 Methicillin resistant Staphylococcus aur eus (MRSA) screening culture - 04/26/17 07:25 Methicillin resistant Staphylococcus aureus (MRSA) scr eening culture NEG NRG CULTURE, URINE - 06/08/18 09:47 CULTURE, URINE, ROUTINE SEE NOTE NRG LIPID PANEL - 06/19/18 09:30 CHOLESTEROL, TOTAL 209 mg/dL <200 HDL CHOLESTEROL 51 mg/dL >50 TRIGLYCERIDES 124 mg/dL <150 LDL-CHOLESTEROL 135 mg/dL (calc) NRG CHOL/HDLC RATIO 4.1 (calc) <5.0 NON HDL CHOLESTEROL 158 mg/dL (calc) <13 0 MICROALBUMIN/CREATININE RATIO, URINE - 0 06/19/18 09:30 CREATININE, RANDOM URINE 56 mg/dL 20-27 5 MICROALBUMIN 34.1 mg/dL See Note: MICROALBUMIN/CREATININE RATIO, RANDOM URINE 609 mcg/mg creat <30 CMP - 06/19/18 09:30 GLUCOSE 159 mg/dL 65-99 UREA NITROGEN (BUN) 26 mg/dL 7-25 CREATININE 1.15 mg/dL 0.60-0.93 eGFR NON-AFR. SAMMARINESE 48 mL/min/1.73m2 > OR = 60 eGFR 55 mL/min/1.73m2 > OR = 60 BUN/CREATININE RATIO 23 (calc) 6-22 SODIUM 138 mmol/L 135-146 POTASSIUM 4.8 mmol/L 3.5-5.3 CHLORIDE 102 mmol/L 98-110 CARBON DIOXIDE 29 mmol/L 20-32 CALCIUM 9.9 mg/dL 8.6-10.4 PROTEIN, TOTAL 6.4 g/dL 6.1-8.1 ALBUMIN 4.0 g/dL 3.6-5.1 GLOBULIN 2.4 g/dL (calc) 1.9-3.7 ALBUMIN/GLOBULIN RATIO 1.7 (calc) 1.0-2. 5 BILIRUBIN, TOTAL 0.6 mg/dL 0.2-1.2 ALKALINE PHOSPHATASE 88 U/L 33-130 AST 13 U/L 10-35 ALT 10 U/L 6-29 CBC w/MANUAL DIFF - 06/19/18 09:30 WHITE BLOOD CELL COUNT 9.9 Thousand/uL 3 .8-10.8 RED BLOOD CELL COUNT 4.59 Million/uL 3.8 0-5.10 HEMOGLOBIN 12.5 g/dL 11.7-15.5 HEMATOCRIT 38.7 % 35.0-45.0 MCV 84.3 fL 80.0-100.0 MCH 27.2 pg 27.0-33.0 MCHC 32.3 g/dL 32.0-36.0 RDW 14.1 % 11.0-15.0 PLATELET COUNT 189 Thousand/uL 140-400 MPV 12.8 fL 7.5-12.5 ABSOLUTE NEUTROPHILS 6603 cells/uL 1500- 7800 ABSOLUTE MONOCYTES 822 cells/uL 200-950 ABSOLUTE EOSINOPHILS 99 cells/uL 15-500 ABSOLUTE BASOPHILS 0 cells/uL 0-200 NEUTROPHILS 66.7 % NRG LYMPHOCYTES 18.8 % NRG MONOCYTES 8.3 % NRG EOSINOPHILS 1.0 % NRG BASOPHILS 0 % NRG ABSOLUTE BAND NEUTROPHILS 515 cells/uL 0 -750 ABSOLUTE LYMPHOCYTES 1861 cells/uL 850-3 900 BAND NEUTROPHILS 5.2 % NRG PLATELET ESTIMATION ADEQUATE ADEQUATE COMMENT(S) NRG A1C - 06/19/18 09:30 HEMOGLOBIN A1c 7.2 % of total Hgb <5.7 CULTURE, URINE - 07/09/18 10:57 CULTURE, URINE, ROUTINE SEE NOTE NRG ESR/SED RATE - 10/05/18 09:37 SED RATE BY MODIFIED WESTERGREN 6 mm/h < OR = 30 RA (RHEUMATOID) FACTOR - 10/05/18 09:37 RHEUMATOID FACTOR <14 IU/mL <14 VADIM - 10/05/18 09:37 VADIM SCREEN, IFA NEGATIVE NEGATIVE A1C - 10/05/18 09:37 HEMOGLOBIN A1c 6.0 % of total Hgb <5.7 MICROALBUMIN/CREATININE RATIO, URINE - 0 07/31/19 09:17 CREATININE, RANDOM URINE 43 mg/dL 20-27 5 MICROALBUMIN 2.9 mg/dL See Note: MICROALBUMIN/CREATININE RATIO, RANDOM URINE 67 mcg /mg creat <30 CMP - 07/31/19 09:17 GLUCOSE 162 mg/dL 65-99 UREA NITROGEN (BUN) 31 mg/dL 7-25 CREATININE 1.28 mg/dL 0.60-0.93 eGFR NON-AFR. SAMMARINESE 42 mL/min/1.73m2 > OR = 60 eGFR 48 mL/min/1.73m2 > OR = 60 BUN/CREATININE RATIO 24 (calc) 6-22 SODIUM 140 mmol/L 135-146 POTASSIUM 4.9 mmol/L 3.5-5.3 CHLORIDE 105 mmol/L 98-110 CARBON DIOXIDE 26 mmol/L 20-32 CALCIUM 9.6 mg/dL 8.6-10.4 PROTEIN, TOTAL 6.4 g/dL 6.1-8.1 ALBUMIN 4.1 g/dL 3.6-5.1 GLOBULIN 2.3 g/dL (calc) 1.9-3.7 ALBUMIN/GLOBULIN RATIO 1.8 (calc) 1.0-2. 5 BILIRUBIN, TOTAL 0.4 mg/dL 0.2-1.2 ALKALINE PHOSPHATASE 72 U/L 37-153 AST 15 U/L 10-35 ALT 13 U/L 6-29 CBC - 07/31/19 09:17 WHITE BLOOD CELL COUNT 6.5 Thousand/uL 3 .8-10.8 RED BLOOD CELL COUNT 4.37 Million/uL 3.8 0-5.10 HEMOGLOBIN 12.2 g/dL 11.7-15.5 HEMATOCRIT 39.2 % 35.0-45.0 MCV 89.7 fL 80.0-100.0 MCH 27.9 pg 27.0-33.0 MCHC 31.1 g/dL 32.0-36.0 RDW 13.4 % 11.0-15.0 PLATELET COUNT 142 Thousand/uL 140-400 MPV 13.4 fL 7.5-12.5 ABSOLUTE NEUTROPHILS 4511 cells/uL 1500- 7800 ABSOLUTE LYMPHOCYTES 1365 cells/uL 850-3 900 ABSOLUTE MONOCYTES 501 cells/uL 200-950 ABSOLUTE EOSINOPHILS 91 cells/uL 15-500 ABSOLUTE BASOPHILS 33 cells/uL 0-200 NEUTROPHILS 69.4 % NRG LYMPHOCYTES 21.0 % NRG MONOCYTES 7.7 % NRG EOSINOPHILS 1.4 % NRG BASOPHILS 0.5 % NRG A1C - 07/31/19 09:17 HEMOGLOBIN A1c 7.2 % of total Hgb <5.7 Encounters ACCT No. Visit Date/Time Discharge Status Pt. Type Provider Facility Loc./Unit Complaint [id number] 08/06/2019 14:30:00 08/06/2019 23:59: 59 CLS Outpatient SOLAMAURY Hannah [facility] [id number] 07/31/2019 09:15:00 Document Registration [id number] 10/05/2018 08:45:00 Document Registration [id number] 07/09/2018 09:50:00 Document Registration [id number] 06/19/2018 09:00:00 Document Registration [id number] 06/08/2018 09:20:00 Document Registration [id number] 08/01/2018 12:52:00 019 23:59:59 CLS Outpatient GLADYS MARTÍNEZ MD [facility] RAD FS H/O UTI'S,H/O STONES [id number] 02/01/2018 13:29:00 018 23:59:59 CLS Preadmit TIFFANIE CASTRO, ANNE [facility] ONC [id number] 08/09/2017 13:38:00 018 23:59:59 CLS Outpatient GLADYS MARTÍNEZ MD [facility] RAD RENAL STONE [id number] 05/09/2017 14:26:00 018 23:59:59 CLS Outpatient GLADYS MARTÍNEZ MD [facility] RAD RENAL STONE [id number] 04/26/2017 06:30:00 018 10:45:00 DIS Outpatient GLADYS MARTÍNEZ MD [facility] SDC RIGHT URETERAL STONE [id number] 04/20/2017 13:34:00 018 23:59:59 CLS Outpatient GLADYS MARTÍNEZ MD [facility] RAD RENAL STONES [id number] 04/20/2017 05:29:00 018 15:35:00 DIS Outpatient GLADYS MARTÍNEZ MD [facility] PREOP RIGHT ESWL [id number] 2017 06:01:00 018 10:21:00 DIS Outpatient GLADYS MARTÍNEZ MD [facility] SDC RIGHT RENAL STONE [id number] 04/07/2017 13:00:00 13:29:00 DIS Outpatient GLADYS MARTÍNEZ MD [facility] PREOP RIGHT RENAL STONE [id number] 03/30/2017 14:32:00 23:59:59 CLS Outpatient GLADYS MARTÍNEZ MD [facility] RAD RT RENAL STONES [id number] 09/29/2016 15:28:00 017 23:59:59 CLS Outpatient GLADYS MARTÍNEZ MD [facility] RAD RENAL STONE [id number] 03/19/2016 14:09:00 017 23:59:59 CLS Outpatient GLADYS MARTÍNEZ MD [facility] RAD GROSS HEMATURIA [id number] 07/08/2015 14:15:00 016 23:59:59 CLS Outpatient GLADYS MARTÍNEZ MD [facility] RAD LT URETERAL STONE [id number] 06/24/2015 09:13:00 016 13:55:00 DIS Outpatient GLADYS MARTÍNEZ MD [facility] SDC LEFT STONE [id number] 06/23/2015 14:35:00 016 23:59:59 CLS Outpatient GLADYS MARTÍNEZ MD [facility] RAD STONE [id number] 06/23/2015 05:39:00 016 23:59:59 CLS Outpatient GLADYS MARTÍNEZ MD [facility] PREOP LEFT STONE [id number] 06/16/2015 06:10:00 11:20:00 DIS Outpatient GLADYS MARTÍNEZ MD [facility] SDC LEFT STONE [id number] 06/12/2015 13:06:00 16:00:00 DIS Outpatient GLADYS MARTÍNEZ MD [facility] PREOP LEFT STONE [id number] 06/11/2015 12:25:00 23:59:59 CLS Outpatient GLADYS MARTÍNEZ MD [facility] RAD STONES [id number] 08/12/2019 18:55:[address] Inpatient STEVE SEN DO [facility] 4TH SMALL BOWEL OBSTRUCTION
[2019-08-12 20:08] VITALS: BP 126/71
[2019-08-12] MEDS: LACTATED RINGERS 1,000 ML IV SCH (22:28)
[2019-08-12] MEDS: metroNIDAZOLE 500 MG/100 ML IVPB (PRE-MIX) IV SCH (22:28)
[2019-08-12] MEDS: ceFAZolin 1,000 MG/SWFI 10 ML IV PUSH IV SCH ×2 (22:29)
[2019-08-12] MEDS: morphine INJ 4 MG/ML 1 ML (VIAL/SYRINGE) IV PRN (22:33)
[2019-08-12] MEDS: ONDANSETRON 4 MG/2 ML (SDV) Z0FRAN IV PRN (22:33)
[2019-08-13 04:00] VITALS: BP 116/69
[2019-08-13 05:30] LABS: BASOPHILS % (AUTO) 0 % (0-10); EOSINOPHILS # (AUTO) 0.1 10^3/uL (0.0-0.3); EOSINOPHILS % (AUTO) 1 % (0-10); HEMATOCRIT 38 % (35-52); HEMOGLOBIN 12.1 G/DL (11.5-16.0); LYMPHOCYTES # (AUTO) 1.9 X 10^3 (1.0-4.0); LYMPHOCYTES % (AUTO) 14 % (12-44); MEAN CORPUSCULAR HEMOGLOBIN 28 PG (25-34); MEAN CORPUSCULAR HGB CONC 32 G/DL (32-36); MEAN CORPUSCULAR VOLUME 87 FL (80-99); MEAN PLATELET VOLUME 12.4 FL (7.4-10.4); MONOCYTES # (AUTO) 1.3 X 10^3 (0.0-1.0); MONOCYTES % (AUTO) 10 % (0-12); NEUTROPHILS # (AUTO) 9.8 X 10^3 (1.8-7.8); NEUTROPHILS % (AUTO) 75 % (42-75); PLATELET COUNT 194 10^3/uL (130-400); RED CELL DISTRIBUTION WIDTH 14.9 % (10.0-14.5)
[2019-08-13 05:39] LABS: ALBUMIN 3.5 GM/DL (3.2-4.5); POTASSIUM 4.7 MMOL/L (3.6-5.0)
[2019-08-13 05:41] LABS: CALCIUM 8.8 MG/DL (8.5-10.1)
[2019-08-13 05:42] LABS: TOTAL PROTEIN 6.1 GM/DL (6.4-8.2)
[2019-08-13 05:43] LABS: BILIRUBIN,TOTAL 0.3 MG/DL (0.1-1.0)
[2019-08-13 05:45] LABS: CREATININE SERUM 1.68 MG/DL (0.60-1.30)
--- NOTE | 2019-08-13 06:50 | NUR ---
PAPO JACK admitted to room 412-1, with an admitting diagnosis of SMALL BOWEL OBSTRUCTION, on 08/12/19 from [facility] ED, accompanied by EMS. PAPO JACK introduced to surroundings, call light, bed controls, phone, TV, temperature control, lights, meal times, smoking policy, visitor policy, side rail policy, bathrooms and showers. Patient Rights given to patient in the handbook. PAPO JACK verbalizes understanding that [facility] is not responsible for the loss or damage to any personal effects or valuables that are kept in the patients posession during their hospitalization. PAPO JACK verbalizes understanding of Interdisciplinary Patient Education. Patient and/or family were informed about the Rapid Response Team and its purpose.
--- NOTE | 2019-08-13 06:51 | NUR ---
CALL TO FRANCY THIS AM TO NOTIFY OF CONSULT. FRANCY ASKED IF ED PLACED AN NG TUBE BEFORE SENT HER. THIS RN EXPLAINS THAT SHE SPECIFICALLY ASKED ED NURSE IF AN NG TUBE WAS PLACED OR NEEDED. ED RN REPORTED NO. NO ORDERS FOR NG TUBE WERE ON ORDERS SENT WITH PT. FRANCY STATES HE TOLD THE ED PHYSICIAN TO PLACE AND NG TUBE BECAUSE IT WAS NEEDED PRIOR TO SMALL BOWEL FOLLOW THROUGH. FRANCY GIVES ORDER TO PLACE NG TUBE NOW. AFTER PLACING NG TUBE THIS RN LOOKS AT PT ORDER HISTORY. NG TUBE PLACEMENT WAS ORDERED WHILE PT WAS STILL IN [facility] ED.
[2019-08-13] MEDS: metroNIDAZOLE 500 MG/100 ML IVPB (PRE-MIX) IV SCH ×3 (07:25→21:15)
[2019-08-13] MEDS: ceFAZolin 1,000 MG/SWFI 10 ML IV PUSH IV SCH ×4 (07:25→17:41)
[2019-08-13] MEDS ORDERED: CHLORASEPTIC LOZENGE MM PRN (07:45)
[2019-08-13] MEDS ORDERED: CHLORASEPTIC SPRAY 177 ML LIQUID MC PRN (07:45)
--- NOTE | 2019-08-13 07:53 | Diagnostic Imaging Report ---
INDICATION: NG placement. FINDINGS: Single radiograph barely includes the most distal aspect of the NG catheter which is near the expected esophagogastric junction. Right-sided nephrolithiasis showed no change from prior. IMPRESSION: 1. Single AP radiograph of the abdomen demonstrates very distal tip of the OG catheter projecting near the cardia or EG junction level. 2. Right-sided nephrolithiasis Dictated by: Dictated on workstation # [id number]
--- NOTE | 2019-08-13 07:55 | Diagnostic Imaging Report ---
INDICATION: NG placement FINDINGS: OG catheter tip is just beyond the OG junction in the upper stomach near the cardia level. This and limited inspiratory volume crowds lung markings. No focal pneumonia. Sternal wires unremarkable. IMPRESSION: Catheter tip is just beyond the EG junction of the upper stomach. Dictated by: Dictated on workstation # [id number]
[2019-08-13 07:59] VITALS: BP 135/60
--- NOTE | 2019-08-13 09:48 | Consultation - Hospitalist ---
HPI History of Present Illness: HPI/Chief Complaint CC: SBO HPI: This is a 74yoWF clinic pt of Dr. Marte who presented for a small bowel obstruction. She will have Dr. Sun managing and do a small bowel follow through tomorrow but the ventral hernia has multiple hernias within it. WBC is 13 and creatinine went from 1.97 to 1.68. Pt denies any significant issues right now. NGT is in place. No pain reported except her nose. IVF maintained. Source: patient, RN/MD Exam Limitations: no limitations Date Seen 08/13/19 Attending Physician Eddie Sun DO PCP Johan Marte MD Referring Physician Date of Admission Aug 12, 2019 at 18:55 Home Medications & Allergies Home Medications Reviewed patient Home Medication Reconciliation performed by pharmacy medication reconciliations air conditioning service technician and/or nursing. Patients Allergies have been reviewed. Allergies Allergies Coded Allergies Sulfa (Sulfonamide Antibiotics) (Verified Allergy, Unknown, makes face red, 06/12/15) atorvastatin (Verified Allergy, Unknown, muscle pain, 06/12/15) diphenhydramine (Verified Allergy, Unknown, 06/12/15) glyburide (Verified Allergy, Unknown, RASH, 06/12/15) levofloxacin (Verified Allergy, Unknown, RASH, 06/12/15) rosuvastatin (Verified Allergy, Unknown, muscle pain, 06/12/15) Past Ivfumbd-Whforf-Gctmtx Hx Past Med/Social Hx: Reviewed Nursing Past Med/Soc Hx, Reviewed and Corrections made Patient Social History Marrital Status: single Employed/Student: retired Alcohol Use: Denies Use Recreational Drug Use: No Smoking Status: Never a Smoker Recent Foreign Travel: No Contact w/other who traveled: No Recent Hopitalizations: No Recent Infectious Disease Expo: No Immunizations Up To Date Tetanus Booster (TDap): Unknown Seasonal Allergies Seasonal Allergies: No Past Medical History Surgeries: CABG, Section, Hysterectomy Cardiac: Coronary Artery Disease, Heart Attack, Hypertension Reproductive: No Genitourinary: Kidney Stones Gastrointestinal: Abdominal Hernia, Gastroesophageal Reflux HEENT: Macular Degeneration Loss of Vision: Bilateral Hearing Impairment: Denies History of Blood Disorders: No Review of Systems Constitutional: see HPI Respiratory: no symptoms reported Cardiovascular: no symptoms reported Gastrointestinal: abdominal pain, nausea, vomiting Musculoskeletal: no symptoms reported Physical Exam Physical Exam Vital Signs Vital Signs - First Documented 08/12/19 08/12/19 16:39 18:49 Temp 36.8 Pulse 102 Resp 18 B/P (MAP) 136/62 (86) Pulse Ox 95 O2 Delivery Room Air Capillary Refill : Less Than 3 Seconds Height, Weight, BMI Height: 5'2.00" Weight: 208lbs. 0.0oz. 94.570362iu; 36.73 BMI Method: General Appearance: No Apparent Distress, WD/WN, Chronically ill, Obese HEENT: Moist Mucous Membranes Neck: Full Range of Motion Respiratory: Lungs Clear Cardiovascular: Regular Rate, Rhythm, No Edema Gastrointestinal: Soft, Abnormal Bowel Sounds, Distended, Hernia, Tenderness, Other (diffusely tender but no guarding or rebound. large abdominal wall hernia that is soft and non-tender) Extremity: Normal Capillary Refill Neurologic/Psychiatric: Alert, Oriented x3 Results Results/Procedures Labs Laboratory Tests 08/12/19 16:45 08/13/19 05:05 Patient resulted labs reviewed. Assessment/Plan Assessment and Plan Assess & Plan/Chief Complaint Assessment: SBO HTN Leukocytosis CRI Ventral hernia Plan: NGT Dr. Sun IVF Diagnosis/Problems Diagnosis/Problems (1) Small bowel obstruction Status: Acute (2) Renal insufficiency (3) Leukocytosis Clinical Quality Measures DVT/VTE Risk/Contraindication: Risk Factor Score Per Nursin RFS Level Per Nursing on Admit: 4+=Very High LORNA NAVARRO DO Aug 13, 2019 09:48
[2019-08-13] MEDS: morphine INJ 4 MG/ML 1 ML (VIAL/SYRINGE) IV PRN ×3 (10:40→23:11)
[2019-08-13] MEDS: ONDANSETRON 4 MG/2 ML (SDV) Z0FRAN IV PRN (10:40)
--- NOTE | 2019-08-13 10:42 | Diagnostic Imaging Report ---
INDICATION: Abdominal pain Supine and upright abdominal images There is an NG tube with the tip in the distal esophagus. There are several calcifications in the region of the head of the pancreas that could be due to chronic pancreatitis. There are some distended small bowel loops with air-fluid levels. This may represent a mild obstruction versus ileus. IMPRESSION: Abnormal but nonspecific gas pattern. Differential considerations include partial small bowel obstruction versus adynamic ileus. Dictated by: Dictated on workstation # [id number]
[2019-08-13] MEDS: LACTATED RINGERS 1,000 ML IV SCH ×2 (10:45→21:16)
[2019-08-13] MEDS ORDERED: ASPI-983 PO (11:39)
[2019-08-13] MEDS ORDERED: LOSA50TA2 PO (11:39)
[2019-08-13] MEDS ORDERED: ISOS30TA3 PO (11:39)
[2019-08-13] MEDS ORDERED: MELO7.5T46 PO (11:39)
[2019-08-13] MEDS ORDERED: GLIP10TA13 PO (11:39)
[2019-08-13] MEDS ORDERED: AMLO5TAB9 PO (11:39)
[2019-08-13] MEDS ORDERED: DULO60CA6 PO (11:39)
[2019-08-13] MEDS ORDERED: PANT40TA2 PO (11:39)
[2019-08-13] MEDS ORDERED: CLOP75TA28 PO (11:39)
[2019-08-13] MEDS ORDERED: VIT1CAPS44 PO (11:39)
[2019-08-13] MEDS ORDERED: CALC-227 PO (11:39)
[2019-08-13] MEDS ORDERED: FENO160T12 PO (11:43)
--- NOTE | 2019-08-13 11:46 | NUR ---
SPOKE WITH THE PT (SHE HAD A MED LIST-UNFORTUNATELY IT IS NOT UP TO DATE) WENT THRU THE EXT MED HISTORY AND CALLED [facility] IN [place] TO COMPLETE THE MED REC THE FOLLOWING ARE FILL DATES THAT DONT SHOW ON THE EXT MED HISTORY: 06-18-2019 ISOSORBIDE MONO ER 30MG #180/90DS 07-12-2019 PANTOPRAZOLE 40MG #120/60DS 07-31-2019 FENOFIBRATE 160MG # 90/90DS CLOPIDOGREL 75MG WAS LAST FILLED ON 04-18-2019 #90/90DS- I DID DOCUMENT THE PAST DUE FILL ON THE MED REC DULOXETINE: THE EXT MED HISTORY SHOWS BOTH 30MG AND 60MG HOWEVER THE PT SAYS SHE IS ONLY TAKING THE 60MG AND HAS FINISHED THE 30MG. OTC MEDS: MTV CALCIUM W/ VIT D ASPIRIN FISH OIL
[2019-08-13 11:47] VITALS: BP 141/63
[2019-08-13] MEDS: ENOXAPARIN 40 MG/0.4 ML (LOVENOX) SYR SQ SCH (12:10)
[2019-08-13] MEDS ORDERED: ZINC OXIDE 16% OINT (BUTT PASTE) 57 GM TUBE TOP PRN (16:00)
[2019-08-13 16:23] VITALS: BP 144/75
[2019-08-13 19:20] VITALS: BP 138/65
--- NOTE | 2019-08-13 21:49 | History & Physical-Surgical ---
History of Present Illness History of Present Illness Reason for visit/HPI CC: SBO Patient is a 74 year old female with not feeling well about last week or two. Began having increasing abdominal pain more all over. Moderate pain. Hard to describe. No radiation. Had nausea and vomiting. Being treated for presumed UTI. Multiple episodes of bilious vomit. Has large hernias. Had for several years, has history of hernia repair. Has small bowel movement this morning. Ng tube was placed this morning. Denies fever sweats chills shortness of breath or chest pain. NG uncomfortable. Feeli ng better today. Leukocytosis. Had ct demonstrating large ventral hernias with findings suggestive of small bowel obstruction, kidney stones. Date of Admission Aug 12, 2019 at 18:55 Date Seen by a Provider: Aug 13, 2019 Time Seen by a Provider: 09:04 I consulted on this patient on 08/13/19 09:04 Attending Physician Steve Sun DO Admitting Physician Johan Marte MD Consult Allergies and Home Medications Allergies Coded Allergies: Sulfa (Sulfonamide Antibiotics) (Verified Allergy, Unknown, makes face red, 06/12/15) atorvastatin (Verified Allergy, Unknown, muscle pain, 06/12/15) diphenhydramine (Verified Allergy, Unknown, 06/12/15) glyburide (Verified Allergy, Unknown, RASH, 06/12/15) levofloxacin (Verified Allergy, Unknown, RASH, 06/12/15) rosuvastatin (Verified Allergy, Unknown, muscle pain, 06/12/15) Home Medications Amlodipine Besylate 5 Mg Tablet, 5 MG PO DAILY, (Reported) Aspirin 81 Mg Tablet.dr, 81 MG PO DAILY, (Reported) Calcium Carbonate/Vitamin D3 1 Each Tablet, 1 EACH PO BID, (Reported) Carvedilol 6.25 Mg Tablet, 6.25 MG PO BID, (Reported) Clopidogrel Bisulfate 75 Mg Tablet, 75 MG PO DAILY, (Reported) LAST FILLED 04-18-2019 #90/90 DAY SUPPLY Duloxetine HCl 60 Mg Capsule.dr, 60 MG PO HS, (Reported) Fenofibrate 160 Mg Tablet, 160 MG PO DAILY, (Reported) Glipizide 10 Mg Tablet, 10 MG PO BID, (Reported) Isosorbide Mononitrate 30 Mg Tab.er.24h, 30 MG PO BID, (Reported) Losartan Potassium 50 Mg Tablet, 50 MG PO BID, (Reported) Meloxicam 7.5 Mg Tablet, 7.5 MG PO DAILY, (Reported) Metformin HCl 1,000 Mg Tablet, 1,000 MG PO BID, (Reported) Multivitamin 1 Each Tablet, 1 EACH PO DAILY, (Reported) [place] 3 Polyunsat Fatty Acids 1,000 Mg Cap, 1,000 MG PO HS, (Reported) Pantoprazole Sodium 40 Mg Tablet.dr, 40 MG PO BID, (Reported) Vit C/E/Zn/Coppr/Lutein/Zeaxan 1 Each Capsule, 1 EACH PO 1200, (Reported) Patient Home Medication List Home Medication List Reviewed: Yes Past Ubzbevq-Knfzfv-Skdsrw Hx Patient Social History Alcohol Use: Denies Use Recreational Drug Use: No Smoking Status: Never a Smoker Recent Foreign Travel: No Contact w/Someone Who Travel: No Recent Infectious Disease Expo: No Recent Hopitalizations: No Immunizations Up To Date Tetanus Booster (TDap): Unknown Seasonal Allergies Seasonal Allergies: No Surgeries History of Surgeries: Yes (Hernia x2, Lithrotripsy) Surgeries: CABG, Section, Hysterectomy Respiratory History of Respiratory Disorde: No Cardiovascular History of Cardiac Disorders: Yes (STENTS x3, 01/29 TRIPLE BYPASS) Cardiac Disorders: Coronary Artery Disease, Heart Attack, Hypertension Neurological History of Neurological Disord: No Reproductive System Hx Reproductive Disorders: No Genitourinary History of Genitourinary Disor: Yes Genitourinary Disorders: Kidney Stones Gastrointestinal History of Gastrointestinal Di: Yes Gastrointestinal Disorders: Abdominal Hernia, Gastroesophageal Reflux Musculoskeletal History of Musculoskeletal Dis: No Endocrine History of Endocrine Disorders: Yes HEENT History of HEENT Disorders: No HEENT Disorders: Macular Degeneration Loss of Vision: Bilateral Hearing Impairment: Denies Cancer History of Cancer: No Psychosocial History of Psychiatric Problem: No Integumentary History of Skin or Integumenta: No Blood Transfusions History of Blood Disorders: No Reviewed Nursing Assessment Reviewed/Agree w Nursing PMH: Yes Family Medical History Significant Family History: No Pertinent Family Hx Review of Systems Constitutional: No fever, No weakness EENTM: No hearing loss, No ear pain Respiratory: No cough, No dyspnea on exertion Cardiovascular: No chest pain, No edema Gastrointestinal: see HPI, abdominal pain, nausea, vomiting Genitourinary: see HPI Musculoskeletal: No back pain, No joint pain Skin: No change in color, No change in hair/nails Psychiatric/Neurological: Denies Anxiety, Denies Depressed, Denies Emotional Problems All Other Systems Reviewed Negative Unless Noted: Yes (Negative excepted noted.) Physical Exam Vital Signs Vital Signs - First Documented 08/12/19 08/12/19 16:39 18:49 Temp 36.8 Pulse 102 Resp 18 B/P (MAP) 136/62 (86) Pulse Ox 95 O2 Delivery Room Air Capillary Refill : Less Than 3 Seconds Height, Weight, BMI Height: 5'2.00" Weight: 208lbs. 0.0oz. 94.187334wy; 36.73 BMI Method: General Appearance: No Apparent Distress, Obese HEENT: PERRL/EOMI, TMs Normal, Normal ENT Inspection, Pharynx Normal, Other (ng tube ) Neck: Full Range of Motion, Normal Inspection, Non Tender, Supple Respiratory: Chest Non Tender, No Accessory Muscle Use, No Respiratory Distress Cardiovascular: Regular Rate, Rhythm Gastrointestinal: Soft, Hernia (large ventral hernias); No Tenderness (not aprreciated with palpation) Rectal: Deferred Back: Normal Inspection, No CVA Tenderness Extremity: Normal Inspection, Non Tender, No Calf Tenderness Neurologic/Psychiatric: Alert, Oriented x3, No Motor/Sensory Deficits, Normal Mood/Affect, solar mechanical 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 II-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 Norm as Tested Skin: Normal Color, Warm/Dry Lymphatic: No Adenopathy Data Review Labs Laboratory Tests 08/13/19 05:05: White Blood Count 13.0H, Red Blood Count 4.38, Hemoglobin 12.1, Hematocrit 38, Mean Corpuscular Volume 87, Mean Corpuscular Hemoglobin 28, Mean Corpuscular Hemoglobin Concent 32, Red Cell Distribution Width 14.9H, Platelet Count 194, Mean Platelet Volume 12.4H, Neutrophils (%) (Auto) 75, Lymphocytes (%) (Auto) 14, Monocytes (%) (Auto) 10, Eosinophils (%) (Auto) 1, Basophils (%) (Auto) 0, Neutrophils # (Auto) 9.8H, Lymphocytes # (Auto) 1.9, Monocytes # (Auto) 1.3H, Eosinophils # (Auto) 0.1, Basophils # (Auto) 0.0, Sodium Level 138, Potassium Level 4.7, Chloride Level 106, Carbon Dioxide Level 20L, Anion Gap 12, Blood Urea Nitrogen 34H, Creatinine 1.68H, Estimat Glomerular Filtration Rate 30, BUN/Creatinine Ratio 20, Glucose Level 86, Calcium Level 8.8, Corrected Calcium 9.2, Total Bilirubin 0.3, Aspartate Amino Transf (AST/SGOT) 13, Alanine Aminotransferase (ALT/SGPT) 9, Alkaline Phosphatase 57, Total Protein 6.1L, Albumin 3.5 Assessment/Plan Assessment/Plan Admission Diagonsis abdominal pain diffuse small bowel obstruction ventral hernia leukocytosis CRI HTN Admission Status: Inpatient Order (span 2 midnights) Reason for Inpatient Admission: patient needs close monitoring due to sbo, needs further radiological studies may need surgical intervention if conservative measures don't work this requiring over 2 midnight stay Assessment/Plan abdominal pain diffuse small bowel obstruction ventral hernia leukocytosis CRI HTN NG tube - LIWS WIll get small bowel follow through tomorrow Had small bm this morning this could have been past obstruction NPO IV hydration conservative measures, patient understands may need surgical intervention Clinical Quality Measures DVT/VTE Risk/Contraindication: Risk Factor Score Per Nursin RFS Level Per Nursing on Admit: 4+=Very High STEVE SUN DO Aug 13, 2019 21:49
--- NOTE | 2019-08-13 23:05 | NUR ---
PCT NOTIFIES THIS NURSE OF PT C/O CHEST PAIN AT THIS TIME. UPON ASSESSING PT IT APPEARS THAT PT IS HAVING SOME DISCOMFORT FROM HER NG TUBE. WILL GIVE PRN PAIN MEDICATION. WILL ALSO NOTIFY DR. NAVARRO D/T PT'S CARDIAC HISTORY.
--- NOTE | 2019-08-13 23:08 | NUR ---
MELANIE NOTIFIED OF PT'S C/O CHEST PAIN, CURRENT VITAL SIGNS, AND THAT PT APPEARS A BIT ANXIOUS. WILL JUST CONTINUE TO MONITOR PER DR. NAVARRO'S REQUEST.
--- NOTE | 2019-08-13 23:30 | NUR ---
PT IS RESTING PEACEFULLY AFTER PRN MORPHINE WAS GIVEN. NO S/S OF DISTRESS. NO C/O DISCOMFORT AT THIS TIME. WILL CONTINUE TO MONITOR.
[2019-08-13 23:50] VITALS: BP 138/75
[2019-08-14 00:25] VITALS: BP 168/80
[2019-08-14 04:20] VITALS: BP 152/81
[2019-08-14] MEDS: ceFAZolin 1,000 MG/SWFI 10 ML IV PUSH IV SCH ×4 (06:04→18:14)
[2019-08-14] MEDS: metroNIDAZOLE 500 MG/100 ML IVPB (PRE-MIX) IV SCH ×3 (06:04→21:23)
[2019-08-14 08:00] VITALS: BP 170/78
[2019-08-14 09:33] LABS: BASOPHILS % (AUTO) 0 % (0-10); EOSINOPHILS # (AUTO) 0.1 10^3/uL (0.0-0.3); EOSINOPHILS % (AUTO) 1 % (0-10); HEMATOCRIT 38 % (35-52); HEMOGLOBIN 11.9 G/DL (11.5-16.0); LYMPHOCYTES # (AUTO) 1.3 X 10^3 (1.0-4.0); LYMPHOCYTES % (AUTO) 13 % (12-44); MEAN CORPUSCULAR HEMOGLOBIN 28 PG (25-34); MEAN CORPUSCULAR HGB CONC 32 G/DL (32-36); MEAN CORPUSCULAR VOLUME 88 FL (80-99); MEAN PLATELET VOLUME 12.3 FL (7.4-10.4); MONOCYTES # (AUTO) 0.9 X 10^3 (0.0-1.0); MONOCYTES % (AUTO) 9 % (0-12); NEUTROPHILS # (AUTO) 7.9 X 10^3 (1.8-7.8); NEUTROPHILS % (AUTO) 77 % (42-75); PLATELET COUNT 152 10^3/uL (130-400); RED CELL DISTRIBUTION WIDTH 14.3 % (10.0-14.5); WHITE BLOOD COUNT 10.2 10^3/uL (4.3-11.0)
[2019-08-14 10:07] LABS: ALBUMIN 3.3 GM/DL (3.2-4.5); BILIRUBIN,TOTAL 0.2 MG/DL (0.1-1.0); CALCIUM 8.3 MG/DL (8.5-10.1); CREATININE SERUM 1.09 MG/DL (0.60-1.30); POTASSIUM 4.3 MMOL/L (3.6-5.0); TOTAL PROTEIN 5.8 GM/DL (6.4-8.2)
--- NOTE | 2019-08-14 10:34 | Progress Note - Hospitalist ---
Subjective HPI/CC On Admission Date Seen by Provider: Aug 14, 2019 Time Seen by Provider: 11:00 CC: SBO HPI: This is a 74yoWF clinic pt of Dr. Marte who presented for a small bowel obstruction. She will have Dr. Sun managing and do a small bowel follow through tomorrow but the ventral hernia has multiple hernias within it. WBC is 13 and creatinine went from 1.97 to 1.68. Pt denies any significant issues right now. NGT is in place. No pain reported except her nose. IVF maintained. Subjective/Events-last exam Pt has had nine bowel movements Pt currently down for a small bowelfollow-throughtest Labs ordered, will review those results Abdominal pain is lessening Family at the bedside Otherwise having no new complaints Review of Systems General: Fatigue, Malaise Gastrointestinal: Abdominal Pain, Diarrhea Objective Exam Vital Signs Vital Signs Date Time Temp Pulse Resp B/P (MAP) Pulse Ox O2 Delivery O2 Flow Rate FiO2 08/14/19 16:13 36.5 71 20 131/76 (94) 99 Room Air Capillary Refill : Less Than 3 Seconds General Appearance: No Apparent Distress, WD/WN, Chronically ill, Obese Respiratory: Chest Non Tender, Lungs Clear, Normal Breath Sounds, No Accessory Muscle Use, No Respiratory Distress Cardiovascular: Regular Rate, Rhythm, No Edema, No Gallop, No JVD, No Murmur, Normal Peripheral Pulses Neurologic/Psychiatric: Alert, Oriented x3, No Motor/Sensory Deficits, Normal Mood/Affect Results/Procedures Lab Laboratory Tests 08/14/19 09:26 Patient resulted labs reviewed. Assessment/Plan Assessment and Plan Assess & Plan/Chief Complaint Assessment: SBO HTN Leukocytosis CRI Ventral hernia Plan: NGT Dr. Sun IVF Small bowel follow through today Diagnosis/Problems Diagnosis/Problems (1) Small bowel obstruction Status: Acute (2) Renal insufficiency (3) Leukocytosis Clinical Quality Measures DVT/VTE Risk/Contraindication: Risk Factor Score Per Nursin RFS Level Per Nursing on Admit: 4+=Very High LORNA NAVARRO DO Aug 14, 2019 10:34
[2019-08-14] MEDS ORDERED: DIATRIZOATE MEGLUM/SODIUM 37% 120 ML (GASTROGRAFIN) NG ONE (11:00)
--- NOTE | 2019-08-14 13:07 | Physician Query Clarification ---
"Physician Query-General Query to Physician: The medical record reflects the following clinical scenario: History/Risk factors: Nausea/Vomiting, SBO, NPO Clinical Findings: Admission Cr 1.97 improved to 1.09 after rehydration Treatment: IV hydration, Lab Monitoring Question: What condition best reflects the above clinical scenario? Please document response in the Progress notes or Discharge Summary. 1. Acute Kidney Injury on CRI 2. CRI (Chronic renal insufficiency) (as currently documented) 3. Other , with explanation of the clinical findings 4. Clinically undetermined, no explanation for the clinical findings Please remember a lack of response to the above will prompt a phone page by CDI/coding staff In responding to this query, please exercise your independent professional judgment. The purpose of this communication is to more accurately reflect the complexity of your patients condition. The fact that a question is asked does not imply that any particular answer is desired or expected. Thank you for timely response to this clarification. Maria Isabel Fregoso, MSN, RN RN Specialist-Clinical Doc Improvement CD -Health Info Mgmt Operations [address] [facility] t: [phone] | f: [phone] If you are unable to reach me at my extension, I may be working from home. Please contact me at [phone] PHYSICIAN RESPONSE: Based on the clinical findings in the record, please respond to the query above on this document as an addendum. Physician Response: Physician Response 1 If you have questions please contact: Fruit Sprayer: Ext: Thank you for your time and cooperation. Clinical Executive Meeting Manager/Fruit Sprayer This is a permanent part of the medical record MARIA ISABEL FREGOSO Aug 14, 2019 13:07 LORNA NAVARRO DO Aug 14, 2019 17:13"
--- NOTE | 2019-08-14 13:57 | Diagnostic Imaging Report ---
INDICATION: Small bowel obstruction. Patient was administered 180 mL of Gastrografin contrast. 180 mL water through indwelling NG tube. Serial radiographs of the abdomen were then obtained. Preliminary radiograph demonstrates multiple gaseous distended small bowel loops in the abdomen. Calcific densities overlie the right renal shadow consistent with renal calculi and proximal right ureteric calculi. Contrast is seen within the stomach. There is prompt emptying into proximal small bowel loops. There appears to be progression of contrast through the small bowel loops. Contrast reaches large ventral hernia in the right lower quadrant at 1 hour 30 minutes. This hernia does contain portions of the right colon and transverse colon. The fold pattern is unremarkable. IMPRESSION: Large abdominal wall hernia containing portions of the colon. Contrast does reach the colon at 1 hour 30 minutes. No complete small bowel obstruction is identified. Dictated by: Dictated on workstation # [id number]
[2019-08-14] MEDS: ENOXAPARIN 40 MG/0.4 ML (LOVENOX) SYR SQ SCH (14:05)
[2019-08-14] MEDS: LACTATED RINGERS 1,000 ML IV SCH ×2 (14:05→20:41)
--- NOTE | 2019-08-14 14:55 | NUR ---
Dr. Sun here order to DC NG tube. Removed without difficulty. Instructed on clear liquid diet.
--- NOTE | 2019-08-14 15:34 | Progress Note - Surgery ---
Subjective Date Seen by a Provider: Aug 14, 2019 Time Seen by a Provider: 15:30 Subjective/Events-last exam + flatus and bm. No abdominal pain. Feeling better. Small bowel follow through, made through to colon. Denies n/v fever sweats chills shortness of breath or chest pain. Wanting food. Objective Exam Vital Signs Date Time Temp Pulse Resp B/P (MAP) Pulse Ox O2 Delivery O2 Flow Rate FiO2 08/14/19 12:00 Room Air 08/14/19 08:00 36.2 79 16 170/78 (108) 93 Room Air 08/14/19 08:00 96 Room Air 08/14/19 04:20 36.4 80 18 152/81 (104) 96 Room Air 08/14/19 00:25 36.5 94 20 168/80 (109) 95 Room Air 08/13/19 23:50 36.8 80 16 138/75 (96) Room Air 08/13/19 21:00 Room Air 08/13/19 19:20 36.5 86 18 138/65 (89) 95 Room Air 08/13/19 16:23 36.5 77 20 144/75 (98) 97 Room Air I & O 08/14/19 07:00 Intake Total 1610 ml Output Total 300 ml Balance 1310 ml Capillary Refill : Less Than 3 Seconds General Appearance: No Apparent Distress, WD/WN, Chronically ill, Obese HEENT: PERRL/EOMI, Normal ENT Inspection, Other (ng tube ) Neck: Full Range of Motion, Normal Inspection, Non Tender, Supple Respiratory: Chest Non Tender, No Accessory Muscle Use, No Respiratory Distress Cardiovascular: Regular Rate, Rhythm, No Edema, Normal Peripheral Pulses Gastrointestinal: non tender, soft, hernia (large loss of domain hernia x 2) Extremity: Normal Inspection, Non Tender, No Calf Tenderness Neurologic/Psychiatric: Alert, Oriented x3, No Motor/Sensory Deficits, Normal Mood/Affect Skin: Normal Color, Warm/Dry Lymphatic: No Adenopathy Results Lab Laboratory Tests 08/14/19 09:26: White Blood Count 10.2, Red Blood Count 4.29L, Hemoglobin 11.9, Hematocrit 38, Mean Corpuscular Volume 88, Mean Corpuscular Hemoglobin 28, Mean Corpuscular Hemoglobin Concent 32, Red Cell Distribution Width 14.3, Platelet Count 152, Mean Platelet Volume 12.3H, Neutrophils (%) (Auto) 77H, Lymphocytes (%) (Auto) 13, Monocytes (%) (Auto) 9, Eosinophils (%) (Auto) 1, Basophils (%) (Auto) 0, Neutrophils # (Auto) 7.9H, Lymphocytes # (Auto) 1.3, Monocytes # (Auto) 0.9, Eosinophils # (Auto) 0.1, Basophils # (Auto) 0.0, Sodium Level 140, Potassium Level 4.3, Chloride Level 106, Carbon Dioxide Level 21, Anion Gap 13, Blood Urea Nitrogen 16, Creatinine 1.09, Estimat Glomerular Filtration Rate 49, BUN/Creatinine Ratio 15, Glucose Level 88, Calcium Level 8.3L, Corrected Calcium 8.9, Total Bilirubin 0.2, Aspartate Amino Transf (AST/SGOT) 14, Alanine Aminotransferase (ALT/SGPT) 8, Alkaline Phosphatase 54, Total Protein 5.8L, Albumin 3.3 Microbiology 08/12/19 Urine Culture - Final, Complete 3 or more isolates YEAST Assessment/Plan Assessment/Plan Assessment/Plan abdominal pain diffuse- resolved small bowel obstruction-resolved ventral hernia leukocytosis-improved CRI HTN NG tube remove small bowel follow through contrast into colon start clears IV hydration conservative measures discussed hernias would need repaired at tertiary center with multi-specialty approach (surgery/plastics) Clinical Quality Measures DVT/VTE Risk/Contraindication: Risk Factor Score Per Nursin RFS Level Per Nursing on Admit: 4+=Very High STEVE SEN DO Aug 14, 2019 15:34
[2019-08-14 16:13] VITALS: BP 131/76
[2019-08-14 20:23] VITALS: BP 167/72
[2019-08-14] MEDS: ONDANSETRON 4 MG/2 ML (SDV) Z0FRAN IV PRN (21:20)
[2019-08-15 00:04] VITALS: BP 156/71
[2019-08-15] MEDS: metroNIDAZOLE 500 MG/100 ML IVPB (PRE-MIX) IV SCH ×3 (04:53→21:37)
[2019-08-15 05:50] LABS: BASOPHILS % (AUTO) 0 % (0-10); EOSINOPHILS # (AUTO) 0.1 10^3/uL (0.0-0.3); EOSINOPHILS % (AUTO) 1 % (0-10); HEMATOCRIT 37 % (35-52); HEMOGLOBIN 11.8 G/DL (11.5-16.0); LYMPHOCYTES # (AUTO) 1.7 X 10^3 (1.0-4.0); LYMPHOCYTES % (AUTO) 19 % (12-44); MEAN CORPUSCULAR HEMOGLOBIN 27 PG (25-34); MEAN CORPUSCULAR HGB CONC 32 G/DL (32-36); MEAN CORPUSCULAR VOLUME 87 FL (80-99); MEAN PLATELET VOLUME 12.2 FL (7.4-10.4); MONOCYTES # (AUTO) 0.9 X 10^3 (0.0-1.0); MONOCYTES % (AUTO) 10 % (0-12); NEUTROPHILS # (AUTO) 6.3 X 10^3 (1.8-7.8); NEUTROPHILS % (AUTO) 70 % (42-75); PLATELET COUNT 158 10^3/uL (130-400); RED CELL DISTRIBUTION WIDTH 14.5 % (10.0-14.5); WHITE BLOOD COUNT 9.1 10^3/uL (4.3-11.0)
[2019-08-15] MEDS: ceFAZolin 1,000 MG/SWFI 10 ML IV PUSH IV SCH ×4 (05:54→18:30)
[2019-08-15 06:04] LABS: ALBUMIN 3.4 GM/DL (3.2-4.5)
[2019-08-15 06:05] LABS: CHLORIDE 106 MMOL/L (98-107); POTASSIUM 3.8 MMOL/L (3.6-5.0); SODIUM 139 MMOL/L (135-145)
[2019-08-15 06:06] LABS: CALCIUM 8.5 MG/DL (8.5-10.1)
[2019-08-15 06:07] LABS: GLUCOSE 98 MG/DL (70-105)
[2019-08-15 06:08] LABS: CARBON DIOXIDE 20 MMOL/L (21-32)
[2019-08-15 06:09] LABS: BILIRUBIN,TOTAL 0.2 MG/DL (0.1-1.0)
[2019-08-15 06:10] LABS: ALKALINE PHOSPHATASE 54 U/L (40-136)
[2019-08-15 06:11] LABS: GFR ESTIMATED > 60
[2019-08-15 06:12] LABS: BUN/CREATININE RATIO 14
[2019-08-15 06:13] LABS: ALANINE AMINOTRANSFERASE 8 U/L (0-55)
[2019-08-15 08:00] VITALS: BP 150/74
--- NOTE | 2019-08-15 09:27 | Progress Note - Hospitalist ---
Subjective HPI/CC On Admission Date Seen by Provider: Aug 15, 2019 Time Seen by Provider: 10:00 CC: SBO HPI: This is a 74yoWF clinic pt of Dr. Marte who presented for a small bowel obstruction. She will have Dr. Sun managing and do a small bowel follow through tomorrow but the ventral hernia has multiple hernias within it. WBC is 13 and creatinine went from 1.97 to 1.68. Pt denies any significant issues right now. NGT is in place. No pain reported except her nose. IVF maintained. Subjective/Events-last exam Creatinine now normal at 0.9 White count is normal Will likely DC home today if she is able to tolerate a slightly advanced diet from clear liquids Ventral hernia is so complex she will need some sort of revision by an academic center at the bedside and pt doing very well Review of Systems General: Fatigue Gastrointestinal: Abdominal Pain Objective Exam Vital Signs Vital Signs Date Time Temp Pulse Resp B/P (MAP) Pulse Ox O2 Delivery O2 Flow Rate FiO2 08/15/19 16:27 36.8 57 18 166/77 (106) 95 Room Air Capillary Refill : Less Than 3 Seconds General Appearance: No Apparent Distress, WD/WN, Chronically ill, Obese Respiratory: Chest Non Tender, Lungs Clear, Normal Breath Sounds, No Accessory Muscle Use, No Respiratory Distress Cardiovascular: Regular Rate, Rhythm, No Edema, No Gallop, No JVD, No Murmur, Normal Peripheral Pulses Neurologic/Psychiatric: Alert, Oriented x3, No Motor/Sensory Deficits, Normal Mood/Affect Results/Procedures Lab Laboratory Tests 08/15/19 05:31 Patient resulted labs reviewed. Assessment/Plan Assessment and Plan Assess & Plan/Chief Complaint Assessment: SBO HTN Leukocytosis CRI Ventral hernia Plan: NGT DC Dr. Sun IVF Small bowel follow through reviewed Discharge home today? Diagnosis/Problems Diagnosis/Problems (1) Small bowel obstruction Status: Acute (2) Renal insufficiency (3) Leukocytosis Clinical Quality Measures DVT/VTE Risk/Contraindication: Risk Factor Score Per Nursin RFS Level Per Nursing on Admit: 4+=Very High LORNA NAVARRO DO Aug 15, 2019 09:27
[2019-08-15] MEDS: LACTATED RINGERS 1,000 ML IV SCH (12:18)
[2019-08-15] MEDS: ENOXAPARIN 40 MG/0.4 ML (LOVENOX) SYR SQ SCH (12:18)
--- NOTE | 2019-08-15 13:45 | NUR ---
RD ASSESSMENT PMHx: CAD; MO; HTN; GERD; hx of hernias; PT INTERACTION: Pt was awake and pleasant during nutrition assessment. Pt states current appetite is getting better. Note avg PO intake of 66% x3meal, per chart review. Pt states following a gluten-free, sugar-free diet at home, and has no issues with chewing/swallowing food. Pt states some recent issues with nausea, vomiting, constipation, and diarrhea. Note last BM was 08/14, and pt not currently on bowel regimen per chart review. Pt states some recent wt gain, but unsure of amount/timeframe. Note unable to determine recent wt hx, per chart review. Pt states current DM management is "pretty good." Note unable to determine recent HbA1c, per chart review. ABNORMAL NUTRITION-RELATED LAB VALUES LOW: Pro 6.0 HIGH: Est. kcal needs: 9128-9410 kcal | 15-18 kcal/kg Est. Pro needs: 73-91 g Pro | 0.8-1.0 g Pro/kg PES STATEMENT: Inadequate oral intake (NI-2.1) related to loss of appetite | nausea | vomiting | constipation | diarrhea as evidenced by pt interview | avg PO intake 66% x3meal INTERVENTION: Continue with current diet order of Clear Liquid diet. Would recommend diet advancement as medically able, and as tolerated. Will continue to follow and reassess as pt needs, intake, and status change. MONITOR/EVALUATE: PO Intake; Plan of Care; Hydration Status; Weight Status; Lab Values Darrick Angulo, MS, RD, LD
--- NOTE | 2019-08-15 15:20 | NUR ---
Pastoral care visit.
[2019-08-15 16:27] VITALS: BP 166/77
[2019-08-15] MEDS ORDERED: amLODIPine 5 MG (NORVASC) TAB PO NR (20:30)
[2019-08-15] MEDS: ISOSORBIDE MONONITRATE 30 MG (IMDUR) TAB PO SCH (20:48)
[2019-08-15] MEDS: PANTOPRAZOLE 40 MG (PROTONIX) TAB PO SCH (20:48)
[2019-08-15] MEDS: CARVEDILOL 6.25 MG (COREG) TAB PO SCH (20:52)
--- NOTE | 2019-08-15 20:58 | Progress Note - Surgery ---
Subjective Date Seen by a Provider: Aug 15, 2019 Time Seen by a Provider: 08:12 Subjective/Events-last exam Patient reports nausea overnight. Feeling a little better this morning. Tolerating liquids so far this morning. Having flatus. Denies fever sweats chills shortness of breath or chest pain. Review of Systems Pulmonary: No Pleuritic Chest Pain Gastrointestinal: Constipation Objective Exam Vital Signs Date Time Temp Pulse Resp B/P (MAP) Pulse Ox O2 Delivery O2 Flow Rate FiO2 08/15/19 16:27 36.8 57 18 166/77 (106) 95 Room Air 08/15/19 08:00 36.8 75 18 150/74 (99) 97 Room Air 08/15/19 08:00 Room Air 08/15/19 00:04 36.7 71 18 156/71 (99) 97 Room Air I & O 08/15/19 07:00 Intake Total 1942 ml Balance 1942 ml Capillary Refill : Less Than 3 Seconds General Appearance: No Apparent Distress, WD/WN, Chronically ill, Obese HEENT: PERRL/EOMI, Normal ENT Inspection, Other (ng tube ) Neck: Full Range of Motion, Normal Inspection, Non Tender, Supple Respiratory: Chest Non Tender, No Accessory Muscle Use, No Respiratory Distress Cardiovascular: Regular Rate, Rhythm, No Edema, Normal Peripheral Pulses Gastrointestinal: non tender, soft, hernia (large loss of domain hernia x 2) Extremity: Normal Inspection, Non Tender, No Calf Tenderness Neurologic/Psychiatric: Alert, Oriented x3, No Motor/Sensory Deficits, Normal Mood/Affect Skin: Normal Color, Warm/Dry Lymphatic: No Adenopathy Results Lab Laboratory Tests 08/15/19 05:31: White Blood Count 9.1, Red Blood Count 4.31L, Hemoglobin 11.8, Hematocrit 37, Mean Corpuscular Volume 87, Mean Corpuscular Hemoglobin 27, Mean Corpuscular Hemoglobin Concent 32, Red Cell Distribution Width 14.5, Platelet Count 158, Mean Platelet Volume 12.2H, Neutrophils (%) (Auto) 70, Lymphocytes (%) (Auto) 19, Monocytes (%) (Auto) 10, Eosinophils (%) (Auto) 1, Basophils (%) (Auto) 0, Neutrophils # (Auto) 6.3, Lymphocytes # (Auto) 1.7, Monocytes # (Auto) 0.9, Eosinophils # (Auto) 0.1, Basophils # (Auto) 0.0, Sodium Level 139, Potassium Level 3.8, Chloride Level 106, Carbon Dioxide Level 20L, Anion Gap 13, Blood Urea Nitrogen 13, Creatinine 0.90, Estimat Glomerular Filtration Rate > 60, BUN/Creatinine Ratio 14, Glucose Level 98, Calcium Level 8.5, Corrected Calcium 9.0, Total Bilirubin 0.2, Aspartate Amino Transf (AST/SGOT) 14, Alanine Aminotransferase (ALT/SGPT) 8, Alkaline Phosphatase 54, Total Protein 6.0L, Albumin 3.4 Microbiology 08/12/19 Urine Culture - Final, Complete 3 or more isolates YEAST Assessment/Plan Assessment/Plan Assessment/Plan abdominal pain diffuse- resolved small bowel obstruction-resolved ventral hernia leukocytosis-improved CRI HTN Nausea nausea last night, will keep on clears and if tolerates can advance slowly IV hydration conservative measures discussed hernias would need repaired at tertiary center with multi-specialty approach (surgery/plastics) Likely home today/tomorrow Clinical Quality Measures DVT/VTE Risk/Contraindication: Risk Factor Score Per Nursin RFS Level Per Nursing on Admit: 4+=Very High STEVE SEN DO Aug 15, 2019 20:58
[2019-08-15] MEDS ORDERED: NON-FORMULARY MEDICATION 1 EA EA (Duloxetine HCl (Cymbalta) 60 MG) PO SCH (21:00)
[2019-08-15] MEDS ORDERED: DULoxetine 30 MG (CYMBALTA) CAP PO SCH (21:00)
[2019-08-16 00:40] VITALS: BP 134/73
[2019-08-16] MEDS: LACTATED RINGERS 1,000 ML IV SCH (02:45)
[2019-08-16] MEDS: ceFAZolin 1,000 MG/SWFI 10 ML IV PUSH IV SCH ×2 (05:39)
[2019-08-16] MEDS: metroNIDAZOLE 500 MG/100 ML IVPB (PRE-MIX) IV SCH ×2 (05:45→13:02)
[2019-08-16 06:19] LABS: BASOPHILS % (AUTO) 0 % (0-10); EOSINOPHILS # (AUTO) 0.1 10^3/uL (0.0-0.3); EOSINOPHILS % (AUTO) 1 % (0-10); HEMATOCRIT 34 % (35-52); HEMOGLOBIN 10.7 G/DL (11.5-16.0); LYMPHOCYTES # (AUTO) 1.6 X 10^3 (1.0-4.0); LYMPHOCYTES % (AUTO) 18 % (12-44); MEAN CORPUSCULAR HEMOGLOBIN 28 PG (25-34); MEAN CORPUSCULAR HGB CONC 32 G/DL (32-36); MEAN CORPUSCULAR VOLUME 87 FL (80-99); MEAN PLATELET VOLUME 12.2 FL (7.4-10.4); MONOCYTES # (AUTO) 0.7 X 10^3 (0.0-1.0); MONOCYTES % (AUTO) 8 % (0-12); NEUTROPHILS # (AUTO) 6.5 X 10^3 (1.8-7.8); NEUTROPHILS % (AUTO) 72 % (42-75); PLATELET COUNT 156 10^3/uL (130-400); RED CELL DISTRIBUTION WIDTH 14.4 % (10.0-14.5)
--- NOTE | 2019-08-16 06:24 | Progress Note - Hospitalist ---
Subjective HPI/CC On Admission Date Seen by Provider: Aug 16, 2019 Time Seen by Provider: 09:30 CC: SBO HPI: This is a 74yoWF clinic pt of Dr. Marte who presented for a small bowel obstruction. She will have Dr. Sun managing and do a small bowel follow through tomorrow but the ventral hernia has multiple hernias within it. WBC is 13 and creatinine went from 1.97 to 1.68. Pt denies any significant issues right now. NGT is in place. No pain reported except her nose. IVF maintained. Subjective/Events-last exam Pt set for DC today Tolerating dysphagia 2 soft diet Denies any significant vomiting No abdominal pain today Review of Systems General: Fatigue Gastrointestinal: Abdominal Pain Objective Exam Vital Signs Vital Signs Date Time Temp Pulse Resp B/P (MAP) Pulse Ox O2 Delivery O2 Flow Rate FiO2 08/16/19 15:35 36.1 71 18 151/74 94 Room Air Capillary Refill : Less Than 3 Seconds General Appearance: No Apparent Distress, WD/WN, Chronically ill, Obese Respiratory: Chest Non Tender, Lungs Clear, Normal Breath Sounds, No Accessory Muscle Use, No Respiratory Distress Cardiovascular: Regular Rate, Rhythm, No Edema, No Gallop, No JVD, No Murmur, Normal Peripheral Pulses Results/Procedures Lab Laboratory Tests 08/16/19 05:45 Patient resulted labs reviewed. Assessment/Plan Assessment and Plan Assess & Plan/Chief Complaint Assessment: SBO HTN Leukocytosis CRI Ventral hernia Plan: NGT DC Dr. Sun IVF Small bowel follow through reviewed Discharge today if ok with Dr. Sun Diagnosis/Problems Diagnosis/Problems (1) Small bowel obstruction Status: Acute (2) Renal insufficiency (3) Leukocytosis Clinical Quality Measures DVT/VTE Risk/Contraindication: Risk Factor Score Per Nursin RFS Level Per Nursing on Admit: 4+=Very High LORNA NAVARRO DO Aug 16, 2019 06:24
[2019-08-16 06:31] LABS: ALBUMIN 3.1 GM/DL (3.2-4.5); CHLORIDE 109 MMOL/L (98-107); SODIUM 141 MMOL/L (135-145)
[2019-08-16 06:32] LABS: CALCIUM 8.1 MG/DL (8.5-10.1)
[2019-08-16 06:33] LABS: GLUCOSE 125 MG/DL (70-105); TOTAL PROTEIN 5.2 GM/DL (6.4-8.2)
[2019-08-16 06:35] LABS: BILIRUBIN,TOTAL 0.2 MG/DL (0.1-1.0); CARBON DIOXIDE 21 MMOL/L (21-32)
[2019-08-16 06:37] LABS: ALKALINE PHOSPHATASE 50 U/L (40-136); CREATININE SERUM 0.81 MG/DL (0.60-1.30); GFR ESTIMATED > 60
[2019-08-16 06:38] LABS: BUN/CREATININE RATIO 12
[2019-08-16 06:40] LABS: ALANINE AMINOTRANSFERASE 9 U/L (0-55)
[2019-08-16 08:00] VITALS: BP 151/74
[2019-08-16] MEDS ORDERED: amLODIPine 5 MG (NORVASC) TAB PO SCH (09:00)
[2019-08-16] MEDS ORDERED: ASPIRIN E.C. 81 MG (ECOTRIN) TAB PO SCH (09:00)
[2019-08-16] MEDS ORDERED: CLOPIDOGREL 75 MG (PLAVIX) TABLET PO SCH (09:00)
[2019-08-16] MEDS: ISOSORBIDE MONONITRATE 30 MG (IMDUR) TAB PO SCH (09:08)
[2019-08-16] MEDS: PANTOPRAZOLE 40 MG (PROTONIX) TAB PO SCH (09:08)
[2019-08-16] MEDS: CARVEDILOL 6.25 MG (COREG) TAB PO SCH (09:12)
[2019-08-16] MEDS: ENOXAPARIN 40 MG/0.4 ML (LOVENOX) SYR SQ SCH (11:52)
[2019-08-16] MEDS: ONDANSETRON 4 MG/2 ML (SDV) Z0FRAN IV PRN (12:38)
[2019-08-16] MEDS ORDERED: ceFAZolin 1,000 MG/SWFI 10 ML IV PUSH IV SCH ×2 (14:00)
--- NOTE | 2019-08-16 14:52 | Discharge Summary ---
Discharge Summary Hospital Course Was the Problem List Reviewed?: Yes Problems/Dx: (1) Small bowel obstruction Status: Acute (2) Renal insufficiency (3) Leukocytosis Hospital Course Date of Admission: Aug 12, 2019 at 18:55 Admission Diagnosis : Family Physician/Provider: Johan Marte MD Date of Discharge: 08/16/19 Discharge Diagnosis: SBO with ventral hernia severe type, ARF, HTN Hospital Course: Standard course after admitted for SBO due to severe ventral hernia and hernia within the hernia. Patient had NGT placed with improved clearance of the obstruction. Dr Sun consulted. ARF resolved with IVF. Patient responded to aggressive treatment and was found to be ready for DC after tolerating DYS2 diet. Labs and Pending Lab Test: Laboratory Tests 08/16/19 05:45: White Blood Count 9.0, Red Blood Count 3.86L, Hemoglobin 10.7L, Hematocrit 34L, Mean Corpuscular Volume 87, Mean Corpuscular Hemoglobin 28, Mean Corpuscular Hemoglobin Concent 32, Red Cell Distribution Width 14.4, Platelet Count 156, Mean Platelet Volume 12.2H, Neutrophils (%) (Auto) 72, Lymphocytes (%) (Auto) 18, Monocytes (%) (Auto) 8, Eosinophils (%) (Auto) 1, Basophils (%) (Auto) 0, Neutrophils # (Auto) 6.5, Lymphocytes # (Auto) 1.6, Monocytes # (Auto) 0.7, Eosinophils # (Auto) 0.1, Basophils # (Auto) 0.0, Sodium Level 141, Potassium Level 4.0, Chloride Level 109H, Carbon Dioxide Level 21, Anion Gap 11, Blood Urea Nitrogen 10, Creatinine 0.81, Estimat Glomerular Filtration Rate > 60, BUN/Creatinine Ratio 12, Glucose Level 125H, Calcium Level 8.1L, Corrected Calcium 8.8, Total Bilirubin 0.2, Aspartate Amino Transf (AST/SGOT) 18, Alanine Aminotransferase (ALT/SGPT) 9, Alkaline Phosphatase 50, Total Protein 5.2L, Albumin 3.1L Microbiology 08/12/19 Urine Culture - Final, Complete 3 or more isolates YEAST Home Meds Active Reported Fenofibrate 160 Mg Tablet 160 Mg PO DAILY Preservision Areds 2 Softgel (Vit C/E/Zn/Coppr/Lutein/Zeaxan) 1 Each Capsule 1 Each PO 1200 Clopidogrel (Clopidogrel Bisulfate) 75 Mg Tablet 75 Mg PO DAILY LAST FILLED 04-18-2019 #90/90 DAY SUPPLY Aspirin EC (Aspirin) 81 Mg Tablet. 81 Mg PO DAILY Isosorbide Mononitrate ER (Isosorbide Mononitrate) 30 Mg Tab.er.24h 30 Mg PO BID Protonix (Pantoprazole Sodium) 40 Mg Tablet. 40 Mg PO BID Cymbalta (Duloxetine HCl) 60 Mg Capsule.dr 60 Mg PO HS Cozaar (Losartan Potassium) 50 Mg Tablet 50 Mg PO BID Amlodipine Besylate 5 Mg Tablet 5 Mg PO DAILY Glipizide 10 Mg Tablet 10 Mg PO BID Meloxicam 7.5 Mg Tablet 7.5 Mg PO DAILY Calcium 250+D Tablet (Calcium Carbonate/Vitamin D3) 1 Each Tablet 1 Each PO BID Multivitamins (Multivitamin) 1 Each Tablet 1 Each PO DAILY Carvedilol 6.25 Mg Tablet 6.25 Mg PO BID Metformin HCl 1,000 Mg Tablet 1,000 Mg PO BID Fish Oil 1,000 mg Capsule ([place] 3 Polyunsat Fatty Acids) 1,000 Mg Cap 1,000 Mg PO HS Assessment/Pt Instructions [facility] 1 week Discharge Planning: <30 minutes discharge planning Discharge Instructions Discharge Diet: Soft Diet Discharge Physical Examination Vital Signs Vital Signs Date Time Temp Pulse Resp B/P (MAP) Pulse Ox O2 Delivery O2 Flow Rate FiO2 08/16/19 08:00 36.1 71 18 151/74 (99) 94 Room Air General Appearance: No Apparent Distress, WD/WN Allergies: Coded Allergies: Sulfa (Sulfonamide Antibiotics) (Verified Allergy, Unknown, makes face red, 06/12/15) atorvastatin (Verified Allergy, Unknown, muscle pain, 06/12/15) diphenhydramine (Verified Allergy, Unknown, 06/12/15) glyburide (Verified Allergy, Unknown, RASH, 06/12/15) levofloxacin (Verified Allergy, Unknown, RASH, 06/12/15) rosuvastatin (Verified Allergy, Unknown, muscle pain, 06/12/15) Discharge Summary Date of Admission Aug 12, 2019 at 18:55 Date of Discharge Discharge Date: Aug 16, 2019 Discharge Diagnosis Assessment: SBO HTN Leukocytosis CRI Ventral hernia Plan: NGT DC Dr. Sun IVF Small bowel follow through reviewed Discharge today if ok with Dr. Sun (1) Small bowel obstruction Status: Acute (2) Renal insufficiency (3) Leukocytosis Clinical Quality Measures DVT/VTE Risk/Contraindication: Risk Factor Score Per Nursin RFS Level Per Nursing on Admit: 4+=Very High LORNA NAVARRO DO Aug 16, 2019 14:52
[2019-08-16 15:35] VITALS: BP 151/74
--- NOTE | 2019-08-16 16:55 | Progress Note - Surgery ---
Subjective Date Seen by a Provider: Aug 16, 2019 Time Seen by a Provider: 15:02 Subjective/Events-last exam Feeling good today. No abdominal pain. Tolerating diet. Bm/flatus. No nausea or vomiting. Denies fever sweats chills shortness of breath or chest pain. Objective Exam Vital Signs Date Time Temp Pulse Resp B/P (MAP) Pulse Ox O2 Delivery O2 Flow Rate FiO2 08/16/19 15:35 36.1 71 18 151/74 94 Room Air 08/16/19 08:00 36.1 71 18 151/74 (99) 94 Room Air 08/16/19 08:00 Room Air 08/16/19 00:40 36.8 79 16 134/73 (93) 97 Room Air 08/15/19 20:40 Room Air I & O 08/16/19 07:00 Intake Total 1770 ml Balance 1770 ml Capillary Refill : Less Than 3 Seconds General Appearance: No Apparent Distress, WD/WN, Obese HEENT: PERRL/EOMI, Normal ENT Inspection, Other (ng tube ) Neck: Full Range of Motion, Normal Inspection, Non Tender, Supple Respiratory: Chest Non Tender, No Accessory Muscle Use, No Respiratory Distress Cardiovascular: Regular Rate, Rhythm, No Edema, Normal Peripheral Pulses Gastrointestinal: non tender, soft, hernia (large loss of domain hernia x 2) Extremity: Normal Inspection, Non Tender, No Calf Tenderness Neurologic/Psychiatric: Alert, Oriented x3, No Motor/Sensory Deficits, Normal Mood/Affect Skin: Normal Color, Warm/Dry Lymphatic: No Adenopathy Results Lab Laboratory Tests 08/16/19 05:45: White Blood Count 9.0, Red Blood Count 3.86L, Hemoglobin 10.7L, Hematocrit 34L, Mean Corpuscular Volume 87, Mean Corpuscular Hemoglobin 28, Mean Corpuscular Hemoglobin Concent 32, Red Cell Distribution Width 14.4, Platelet Count 156, Mean Platelet Volume 12.2H, Neutrophils (%) (Auto) 72, Lymphocytes (%) (Auto) 18, Monocytes (%) (Auto) 8, Eosinophils (%) (Auto) 1, Basophils (%) (Auto) 0, Neutrophils # (Auto) 6.5, Lymphocytes # (Auto) 1.6, Monocytes # (Auto) 0.7, Eosinophils # (Auto) 0.1, Basophils # (Auto) 0.0, Sodium Level 141, Potassium Level 4.0, Chloride Level 109H, Carbon Dioxide Level 21, Anion Gap 11, Blood Urea Nitrogen 10, Creatinine 0.81, Estimat Glomerular Filtration Rate > 60, BUN/Creatinine Ratio 12, Glucose Level 125H, Calcium Level 8.1L, Corrected Calcium 8.8, Total Bilirubin 0.2, Aspartate Amino Transf (AST/SGOT) 18, Alanine Aminotransferase (ALT/SGPT) 9, Alkaline Phosphatase 50, Total Protein 5.2L, Albumin 3.1L Microbiology 08/12/19 Urine Culture - Final, Complete 3 or more isolates YEAST Assessment/Plan Assessment/Plan Assessment/Plan abdominal pain diffuse- resolved small bowel obstruction-resolved ventral hernia leukocytosis-improved CRI HTN Nausea-improved tolerating advanced diet discussed hernias would need repaired at tertiary center with multi-specialty approach (surgery/plastics) home today Clinical Quality Measures DVT/VTE Risk/Contraindication: Risk Factor Score Per Nursin RFS Level Per Nursing on Admit: 4+=Very High STEVE SNE DO Aug 16, 2019 16:55
== END 2019-08-16 15:44 | disposition home or self-care (01) | DRG 394 ==
LOC: EDUNIT# 16:30 → ER FS 16:31 → 4TH 18:55
PROVIDERS: ADMIT Surgery; ATTEND Surgery
PROC: 0D9670Z Drainage of Stomach with Drainage Device, Via Natural or Artificial Opening (ICD-10-PCS; principal; 2019-08-13)
DX: K43.6 Other and unspecified ventral hernia with obstruction, without gangrene (principal); N39.0 Urinary tract infection, site not specified; N17.9 Acute kidney failure, unspecified; I12.9 Hypertensive chronic kidney disease with stage 1 through stage 4 chronic kidney disease, or unspecified chronic kidney disease; N18.9 Chronic kidney disease, unspecified; I25.10 Atherosclerotic heart disease of native coronary artery without angina pectoris; E66.9 Obesity, unspecified; K21.9 Gastro-esophageal reflux disease without esophagitis; H35.30 Unspecified macular degeneration; I25.2 Old myocardial infarction; Z95.5 Presence of coronary angioplasty implant and graft; Z95.1 Presence of aortocoronary bypass graft; Z79.02 Long term (current) use of antithrombotics/antiplatelets; Z87.442 Personal history of urinary calculi; Z68.36 Body mass index [BMI] 36.0-36.9, adult; Z88.2 Allergy status to sulfonamides; Z88.1 Allergy status to other antibiotic agents; Z88.8 Allergy status to other drugs, medicaments and biological substances; Z79.2 Long term (current) use of antibiotics
CPT/HCPCS: 36415; 71045; 74018; 74019; 74176; 74250; 80053; 81000; 83690; 84484; 85007; 85025; 85027; 87088; 93005; 96361; 96374

== ENCOUNTER → 2022-03-31 | Outpatient (CLI) | payer MEDICARE ==
[~2022-03-31] MED LIST changes: +AMLO-250 PO; -AMLO5TAB9 PO; +ASPI-1238 PO; +CALC-227 PO; +CLOP-31 PO; +CLOP75TA28 PO; -CLOP75TA69 PO; +DULO60CA7 PO; +FENO160T12 PO; +ISOS30TA82 PO; -LISI10TA2 PO; +LISI10TA25 PO; +LOSA50TA2 PO; +MELO7.5T46 PO; +PANT40TA2 PO; +VIT1CAPS44 PO
--- NOTE | 2022-03-31 11:04 | Diagnostic Imaging Report ---
EXAMINATION: Left knee radiographs, 3 views. COMPARISON: None. HISTORY: 76-year-old female, left knee pain. FINDINGS: There is chondrocalcinosis. There is mild patellofemoral compartment joint space loss. There is no knee joint effusion. There are small patellofemoral compartment osteophytes. There are vascular calcifications. There are surgical clips posteriorly. There is no identified acute fracture. IMPRESSION: 1. Mild patellofemoral compartment osteoarthritis without knee joint effusion. 2. Chondrocalcinosis which has multiple associations including advanced age and calcium pyrophosphate dihydrate deposition disease. Dictated by: Dictated on workstation # [id number]
== END ==
LOC: RAD FS 09:19
PROVIDERS: ATTEND Nurse Practitioner
DX: M17.12 Unilateral primary osteoarthritis, left knee (principal); M11.262 Other chondrocalcinosis, left knee
CPT/HCPCS: 73562

== ENCOUNTER 2023-01-19 08:05 | Outpatient (CLI) | payer MEDICARE ==
[~2023-01-19] VITALS: Ht 157.5 cm; Wt 89.0 kg
[~2023-01-19 08:05] MED LIST changes: +LOSA-415 PO; -LOSA50TA2 PO
[2023-01-20] MEDS ORDERED: CIME200T90 PO (11:53)
[2023-01-20] MEDS ORDERED: EMPA25TA PO (11:53)
[2023-01-20] MEDS ORDERED: LOSA-415 PO (11:53)
== END 2023-01-20 11:56 | disposition home or self-care (01) ==
LOC: PREOP 08:05
PROVIDERS: ATTEND Surgery
DX: Z01.818 Encounter for other preprocedural examination (principal)